=== PATIENT | female | born 1965 | race Caucasian/White ===

== ENCOUNTER 2021-03-26 16:27 | Inpatient (IN) | payer BC ==
[2021-03-26] MEDS ORDERED: HYDROmorphone 0.5 MG/0.5 ML SYRINGE IVP STA ×2 (19:14→21:20)
[2021-03-26] MEDS ORDERED: SODIUM CHLORIDE 0.9% 1,000 ML IV STA ×2 (19:14→19:56)
--- NOTE | 2021-03-26 19:43 | ED ---
General Adult HPI - General Chief complaint: Recheck/Abnormal Lab/Rx Stated complaint: MERARY Time Seen by Provider: 03/26/21 16:45 Source: patient, family, RN notes reviewed, old records reviewed Mode of arrival: wheelchair Limitations: no limitations - History of Present Illness Initial comments: This a 55-year-old female who presents emergency department stating that since Father's Day she has been feeling extremely weak she is seen her physician roseline lovee times and had multiple studies but the weakness over the last 2 weeks is excessive. Patient has also noticed some increased breast fullness on the right but no redness and no soreness. Patient states most of her pain is in the right upper quadrant of her abdomen. Patient states she had an ultrasound recently she's scheduled for a CAT scan. Patient denies any fever chills. Patient denies nausea vomiting diarrhea. Patient denies any anterior chest pain but she does state on the right lateral aspect of her chest there is some pain. Patient states she has shortness of breath over the last few days as well. Patient denies swelling to her legs or calf tenderness. - Related Data Allergies Allergy/AdvReac Type Severity Reaction Status Date / Time No Known Allergies Allergy Verified 03/26/21 16:50 Review of Systems ROS Statement: Those systems with pertinent positive or pertinent negative responses have been documented in the HPI. ROS Other: All systems not noted in ROS Statement are negative. Past Medical History Past Medical History: No Reported History History of Any Multi-Drug Resistant Organisms: None Reported Past Surgical History: Tubal Ligation Past Psychological History: No Psychological Hx Reported Smoking Status: Current every day smoker Past Alcohol Use History: Occasional Past Drug Use History: None Reported General Exam - General Exam Comments Initial Comments: GENERAL: Patient is well-developed and well-nourished. Patient is nontoxic and well- hydrated and is in mild distress. ENT: Neck is soft and supple. No significant lymphadenopathy is noted. Oropharynx is clear. Moist mucous membranes. Neck has full range of motion without eliciting any pain. There is no thyroid enlargement and no masses were felt. EYES: The sclera were anicteric and conjunctiva were pink and moist. Extraocular movements were intact and pupils were equal round and reactive to light. Eyelids were unremarkable. PULMONARY: Unlabored respirations. Good breath sounds bilaterally. No audible rales rhonchi or wheezing was noted. CARDIOVASCULAR: There is a regular rate and rhythm without any murmurs gallops or rubs. Right breast does appear a little more full bilaterally but there are no areas of tenderness or solitary masses. ABDOMEN: Patient is right upper quadrant tenderness and fullness. SKIN: Skin is clear with no lesions or rashes and otherwise unremarkable. NEUROLOGIC: Patient is alert and oriented x3. Cranial nerves II through XII are grossly intact. Motor and sensory are also intact. Normal speech, volume and content. Symmetrical smile. MUSCULOSKELETAL: Normal extremities with adequate strength and full range of motion. No lower extremity swelling or edema. No calf tenderness. LYMPHATICS: No significant lymphadenopathy is noted PSYCHIATRIC: Normal psychiatric evaluation. Limitations: no limitations Course Vital Signs 03/26/21 03/26/21 16:47 19:53 Temperature 98.4 F Pulse Rate 125 H 129 H Respiratory 18 16 Rate Blood Pressure 135/80 96/75 O2 Sat by Pulse 97 90 L Oximetry Medical Decision Making - Medical Decision Making EKG shows sinus tachycardia 133 bpm MD interval 118 QRS is 80 QT interval 02 QTC is 449. Patient's EKG shows some inverted T waves in leads [address] of the abdomen and pelvis shows a very large liver with a very heterogeneous pattern in the kidney on the right also has somewhat of a heterogeneous pattern. Chest x-ray shows either fluid in the fissure or an infiltrate. Patient has a white count of 22,000/started the patient antibiotics. I spoke with Dr. Carey agreed to admit the patient admitted the patient I consulted oncology as well as pulmonary. - Lab Data Result diagrams: 03/26/21 19:20 03/26/21 19:21 Lab Results 03/26/21 03/26/21 03/26/21 Range/Units 19:20 19:20 19:20 WBC 22.1 H (3.8-10.6) k/uL RBC 4.92 (3.80-5.40) m/uL Hgb 15.8 (11.4-16.0) gm/dL Hct 48.2 H (34.0-46.0) % MCV 98.0 (80.0-100.0) fL MCH 32.1 (25.0-35.0) pg MCHC 32.8 (31.0-37.0) g/dL RDW 14.6 (11.5-15.5) % Plt Count 203 (150-450) k/uL MPV 8.2 Neutrophils % 90 % Lymphocytes % 6 % Monocytes % 3 % Eosinophils % 0 % Basophils % 0 % Neutrophils # 20.0 H (1.3-7.7) k/uL Lymphocytes # 1.3 (1.0-4.8) k/uL Monocytes # 0.6 (0-1.0) k/uL Eosinophils # 0.1 (0-0.7) k/uL Basophils # 0.1 (0-0.2) k/uL PT 12.8 H (9.0-12.0) sec INR 1.2 H (<1.2) APTT 23.5 (22.0-30.0) sec Sodium (137-145) mmol/L Potassium (3.5-5.1) mmol/L Chloride (98-107) mmol/L Carbon Dioxide (22-30) mmol/L Anion Gap mmol/L BUN (7-17) mg/dL Creatinine (0.52-1.04) mg/dL Est GFR (CKD-EPI)AfAm (>60 ml/min/1.73 sqM) Est GFR (CKD-EPI)NonAf (>60 ml/min/1.73 sqM) Glucose (74-99) mg/dL Plasma Lactic Acid Laz 1.5 (0.7-2.0) mmol/L Calcium (8.4-10.2) mg/dL Total Bilirubin (0.2-1.3) mg/dL AST (14-36) U/L ALT (4-34) U/L Alkaline Phosphatase (38-126) U/L Troponin I (0.000-0.034) ng/mL Total Protein (6.3-8.2) g/dL Albumin (3.5-5.0) g/dL Amylase (30-110) U/L Lipase (23-300) U/L Urine Color Urine Appearance (Clear) Urine pH (5.0-8.0) Ur Specific [place] (1.001-1.035) Urine Protein (Negative) Urine Glucose (UA) (Negative) Urine Ketones (Negative) Urine Blood (Negative) Urine Nitrite (Negative) Urine Bilirubin (Negative) Urine Urobilinogen (<2.0) mg/dL Ur Leukocyte Esterase (Negative) Urine RBC (0-5) /hpf Urine WBC (0-5) /hpf Ur Squamous Epith Cells (0-4) /hpf Urine Bacteria (None) /hpf Hyaline Casts (0-2) /lpf Urine Mucus (None) /hpf 03/26/21 03/26/21 03/26/21 Range/Units 19:20 19:21 20:06 WBC (3.8-10.6) k/uL RBC (3.80-5.40) m/uL Hgb (11.4-16.0) gm/dL Hct (34.0-46.0) % MCV (80.0-100.0) fL MCH (25.0-35.0) pg MCHC (31.0-37.0) g/dL RDW (11.5-15.5) % Plt Count (150-450) k/uL MPV Neutrophils % % Lymphocytes % % Monocytes % % Eosinophils % % Basophils % % Neutrophils # (1.3-7.7) k/uL Lymphocytes # (1.0-4.8) k/uL Monocytes # (0-1.0) k/uL Eosinophils # (0-0.7) k/uL Basophils # (0-0.2) k/uL PT (9.0-12.0) sec INR (<1.2) APTT (22.0-30.0) sec Sodium 134 L (137-145) mmol/L Potassium 3.6 (3.5-5.1) mmol/L Chloride 98 (98-107) mmol/L Carbon Dioxide 26 (22-30) mmol/L Anion Gap 10 mmol/L BUN 38 H (7-17) mg/dL Creatinine 0.80 (0.52-1.04) mg/dL Est GFR (CKD-EPI)AfAm >90 (>60 ml/min/1.73 sqM) Est GFR (CKD-EPI)NonAf 83 (>60 ml/min/1.73 sqM) Glucose 122 H (74-99) mg/dL Plasma Lactic Acid Laz (0.7-2.0) mmol/L Calcium 9.2 (8.4-10.2) mg/dL Total Bilirubin 4.8 H (0.2-1.3) mg/dL AST 237 H (14-36) U/L ALT 149 H (4-34) U/L Alkaline Phosphatase 542 H (38-126) U/L Troponin I 0.012 (0.000-0.034) ng/mL Total Protein 6.5 (6.3-8.2) g/dL Albumin 3.9 (3.5-5.0) g/dL Amylase 49 (30-110) U/L Lipase 151 (23-300) U/L Urine Color Dark Brown Urine Appearance Cloudy H (Clear) Urine pH 6.0 (5.0-8.0) Ur Specific [place] 1.049 H (1.001-1.035) Urine Protein 1+ H (Negative) Urine Glucose (UA) Negative (Negative) Urine Ketones 1+ H (Negative) Urine Blood Negative (Negative) Urine Nitrite Negative (Negative) Urine Bilirubin 2+ H (Negative) Urine Urobilinogen 12.0 (<2.0) mg/dL Ur Leukocyte Esterase Small H (Negative) Urine RBC 6 H (0-5) /hpf Urine WBC 5 (0-5) /hpf Ur Squamous Epith Cells 8 H (0-4) /hpf Urine Bacteria Rare H (None) /hpf Hyaline Casts 11 H (0-2) /lpf Urine Mucus Many H (None) /hpf Disposition Clinical Impression: Pneumonia, Hepatomegaly, Elevated liver function tests, Dehydration Disposition: ADMITTED IP TO THIS [facility] Referrals: Shayla Tadeo DO [Primary Care Provider] - 1-2 days Time of Disposition: 20:59
[2021-03-26 19:44] LABS: Basophils # (A) 0.1 k/uL (0-0.2); Basophils % (A) 0 %; Eosinophils # (A) 0.1 k/uL (0-0.7); Eosinophils % (A) 0 %; HCT 48.2 % (34.0-46.0); HGB 15.8 gm/dL (11.4-16.0); Lymphocytes # (A) 1.3 k/uL (1.0-4.8); Lymphocytes % (A) 6 %; MCH 32.1 pg (25.0-35.0); MCHC 32.8 g/dL (31.0-37.0); Mean Platelet Volume 8.2; Monocytes # (A) 0.6 k/uL (0-1.0); Monocytes % (A) 3 %; Neutrophils % (A) 90 %; Platelet Count 203 k/uL (150-450); RBC 4.92 m/uL (3.80-5.40); RDW 14.6 % (11.5-15.5); WBC 22.1 k/uL (3.8-10.6)
[2021-03-26 19:45] LABS: ALT 149 U/L (4-34); AST 237 U/L (14-36); African American GFR (CKD) >90 (>60 ml/min/1.73 sqM); Albumin 3.9 g/dL (3.5-5.0); Alkaline Phosphatase 542 U/L (38-126); Amylase 49 U/L (30-110); Anion Gap 10 mmol/L; Blood Urea Nitrogen 38 mg/dL (7-17); Calcium 9.2 mg/dL (8.4-10.2); Carbon Dioxide 26 mmol/L (22-30); Chloride 98 mmol/L (98-107); Glucose 122 mg/dL (74-99); Lipase 151 U/L (23-300); Non-African American GFR(CKD) 83 (>60 ml/min/1.73 sqM); Potassium 3.6 mmol/L (3.5-5.1); Sodium 134 mmol/L (137-145); Total Bilirubin 4.8 mg/dL (0.2-1.3); Total Protein 6.5 g/dL (6.3-8.2)
[2021-03-26] MEDS ORDERED: PIPERACILLIN-TAZOBACTAM 3.375 GM in SODIUM CHLORIDE 0.9% 100 ML IVPB STA (19:55)
--- NOTE | 2021-03-26 20:12 | XR ---
EXAMINATION TYPE: XR chest 2V DATE OF EXAM: 03/26/2021 COMPARISON: NONE HISTORY: Weakness and shortness of breath. Fatigue. History of tobacco use TECHNIQUE: Frontal and lateral views of the chest are obtained. FINDINGS: Slight underlying scoliotic curvature. Cardiac silhouette size is within normal limits. The re are small bilateral pleural effusions. There is mild bilateral interstitial prominence. There is s lightly more prominent finding centrally in both lungs. There is more dense consolidation right mid l cammy may be localized to fissures on lateral view. Prominent liver shadow noted. Underlying emphysemat ous changes suspected. IMPRESSION: Small bilateral pleural effusions. At least mild but suspected moderate interstitial ed fidel. Fluid overload state suspected. Correlate for underlying cirrhosis. Cannot exclude underlying in filtrates and/or mass in the mid lungs particularly right aspect. Clinical correlation advised.
[2021-03-26 20:18] LABS: INR 1.2 (<1.2); Partial Thromboplastin Time 23.5 sec (22.0-30.0); Prothrombin Time 12.8 sec (9.0-12.0)
[2021-03-26 20:34] LABS: Appearance,Urine Cloudy (Clear); Bacteria,Urine Rare /hpf; Bilirubin,Urine 2+ (Negative); Blood,Urine Negative (Negative); Color,Urine Dark Brown; Glucose,Urine (UA) Negative (Negative); Hyaline Casts,Urine 11 /lpf (0-2); Ketones,Urine 1+ (Negative); Leukocyte Esterase,Urine Small (Negative); Mucus,Urine Many /hpf; Nitrite,Urine Negative (Negative); Protein,Urine 1+ (Negative); RBC,Urine 6 /hpf (0-5); Squamous Epithelial Cell,Urine 8 /hpf (0-4); WBC,Urine 5 /hpf (0-5)
--- NOTE | 2021-03-26 20:37 | CT ---
EXAMINATION TYPE: CT abdomen pelvis w con DATE OF EXAM: 03/26/2021 COMPARISON: Same day chest radiograph HISTORY: limb swelling and abd pain CT DLP: 1135.6 mGycm Automated exposure control for dose reduction was used. TECHNIQUE: Helical acquisition of images was performed from the lung bases through the pelvis. CONTRAST: Performed without Oral Contrast and with IV Contrast, patient injected with 100 mL of Isovu e 300. FINDINGS: LUNG BASES: There are bilateral small-moderate pleural effusions, greater on the right. LIVER/GB: There is marked 01hepatomegaly with diffusely scalloped liver margins and with a markedly h eterogeneous CT attenuation pattern on both the portal venous phase of contrast enhancement and delay ed urogram phase of contrast enhancement. In this setting, it is not possible to exclude focal liver lesions. Further characterization with MRI can be useful in this setting, as indicated on a clinical basis. PANCREAS: No significant abnormality is seen. SPLEEN: No significant abnormality is seen. ADRENALS: No significant abnormality is seen. KIDNEYS: There is a subtle findings suggesting a striated nephrogram on the delayed equilibrium CT se quence. This is a nonspecific finding but can correlate with a clinical diagnosis of pyelonephritis. PERITONEAL CAVITY: There is a moderate volume of simple-appearing peritoneal fluid within the pelvis. Only scant volume of abdominal peritoneal fluid. No pneumoperitoneum. RETROPERITONEAL ADENOPATHY: None visualized REPRODUCTIVE ORGANS: No significant abnormality is seen URINARY BLADDER: No significant abnormality is seen. PELVIC ADENOPATHY: None visualized. OSSEOUS STRUCTURES: No significant abnormality is seen. BOWEL: No significant abnormality is seen. VASCULATURE: The suprarenal IVC is flattened, suggesting hypovolemia. No other candidate for acute va scular findings. IMPRESSION: 1. MARKED HEPATOMEGALY WITH DIFFUSE HETEROGENEOUS HEPATIC PARENCHYMA. 2. MODERATE PELVIC PERITONEAL FLUID WITH SMALL-MODERATE BILATERAL PLEURAL EFFUSIONS. 3. SUBTLE HETEROGENEOUS RENAL PARENCHYMAL CT ATTENUATION ON THE DELAYED EQUILIBRIUM PHASE OF IV CONT RAST ENHANCEMENT, A NONSPECIFIC FINDING BUT ONE WHICH CAN CORRELATE WITH A CLINICAL DIAGNOSIS OF PYEL ONEPHRITIS.
[2021-03-26 20:48] LABS: Specific Gravity,Urine 1.049 (1.001-1.035)
[2021-03-26] MEDS ORDERED: SODIUM CHLORIDE 0.9% 1,000 ML IV ONE (21:26)
[2021-03-26] MEDS ORDERED: AZITHROMYCIN 500 MG in SODIUM CHLORIDE 0.9% 250 ML IVPB STA (21:30)
[2021-03-26] MEDS ORDERED: PNEUMONIA PROTOCOL UTILIZED 1 EACH MISC PO PRN (21:30)
[2021-03-27] MEDS: PIPERACILLIN-TAZOBACTAM 3.375 GM in SODIUM CHLORIDE 0.9% 100 ML IVPB SCH ×3 (05:20→23:23)
--- NOTE | 2021-03-27 08:38 | XR ---
EXAMINATION TYPE: XR chest 2V DATE OF EXAM: 03/27/2021 COMPARISON: 03/26/2021 HISTORY: 55-year-old female with pneumonia TECHNIQUE: AP and lateral views FINDINGS: Heart normal size. Aorta and pulmonary vasculature within normal limits. Patchy airspace opacity thro ughout the left lung is slightly increased. Focal airspace disease right midlung persists. Trace effu sions on the lateral view. IMPRESSION: Bilateral airspace disease, right greater than left. Slight interval worsening on the left. Trace eff usions on the lateral view are similar.
[2021-03-27] MEDS ORDERED: LORazepam 2 MG/ML INJ IV STA (12:01)
[2021-03-27 12:37] LABS: Basophils # (A) 0.1 k/uL (0-0.2); Basophils % (A) 0 %; Eosinophils # (A) 0.1 k/uL (0-0.7); Eosinophils % (A) 1 %; HCT 44.8 % (34.0-46.0); HGB 14.9 gm/dL (11.4-16.0); Lymphocytes % (A) 5 %; MCH 32.2 pg (25.0-35.0); MCHC 33.2 g/dL (31.0-37.0); MCV 96.9 fL (80.0-100.0); Mean Platelet Volume 8.4; Monocytes # (A) 0.6 k/uL (0-1.0); Monocytes % (A) 3 %; Neutrophils # (A) 17.3 k/uL (1.3-7.7); Neutrophils % (A) 90 %; Platelet Count 196 k/uL (150-450); RBC 4.63 m/uL (3.80-5.40); RDW 14.2 % (11.5-15.5); WBC 19.2 k/uL (3.8-10.6)
[2021-03-27 12:38] LABS: ALT 166 U/L (4-34); AST 276 U/L (14-36); African American GFR (CKD) 86 (>60 ml/min/1.73 sqM); Albumin 3.6 g/dL (3.5-5.0); Albumin/Globulin Ratio 1.4; Alkaline Phosphatase 587 U/L (38-126); Anion Gap 10 mmol/L; Blood Urea Nitrogen 40 mg/dL (7-17); Carbon Dioxide 26 mmol/L (22-30); Chloride 99 mmol/L (98-107); Globulin 2.6 g/dL; Glucose 129 mg/dL (74-99); Non-African American GFR(CKD) 75 (>60 ml/min/1.73 sqM); Potassium 3.5 mmol/L (3.5-5.1); Sodium 135 mmol/L (137-145); Total Bilirubin 5.4 mg/dL (0.2-1.3); Total Protein 6.2 g/dL (6.3-8.2)
[2021-03-27 12:43] LABS: INR 1.3 (<1.2); Partial Thromboplastin Time 23.4 sec (22.0-30.0); Prothrombin Time 13.2 sec (9.0-12.0)
[2021-03-27] MEDS: HYDROmorphone 0.5 MG/0.5 ML SYRINGE IVP PRN ×2 (14:00→20:46)
[2021-03-27] MEDS ORDERED: RX INFO: IV CONTRAST WAS GIVEN 1 EACH MISC MISCELLANE PRN (15:07)
--- NOTE | 2021-03-27 15:18 | P.CNPUL ---
History of Present Illness Consult date: 03/27/21 Reason for consult: pneumonia History of present illness: 55 yo female patient has been experiencing progressive fatigue for the past 2 months. She was having symptoms of generalized weakness, fatigue, body swelling, breast swelling the right more than left, abdominal fullness patient right upper quadrant area and exhaustion. No cough. No sputum production. No hemoptysis. No pleurisy. No angina. No melanotic stools. No abdominal swel ling. No leg swelling. No other gastrointestinal symptoms such as nausea vomiting diarrhea or abdominal pain. She was also found to be hypoxic and she was placed on oxygen at 2 L per minute nasal cannula. Chest x-ray showed bilateral pulmonary infiltrates and repeat chest x-ray from today showed interval worsening of the right the pulmonary infiltration. The patient has airspace disease right more than left. There was also trace bilateral pleural effusions. On her blood work, the patient's had a white cell count of 22 with a hemoglobin of 15.8, platelets of 203, normal coagulation profile, normal electrolytes, BUN of 38 with a creatinine of 0.8. Nevertheless, LFTs were abnormal with a AST of 237, AST of 149 and alkaline phosphatase of 542. For that reason, the patient had a CAT scan of the abdomen and pelvis that showed massive hepatomegaly an there was diffuse heterogeneous hepatic parenchyma and moderate pelvic peritoneal fluid with small amount about the pleural effusion. Amylase and lipase were within normal limits. Note that this patient has not done any previous cancer screening. No previous history of colonoscopy or EGDs. 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 No mammograms. On examination, her right breast was also slightly more swollen compared to the left. No erythema. No breast masses or lesions. She is a smoker and she's been smoking for the past 45 years. She also consumes alcohol in moderation. She drinks 6 beers around 2-3 times a week. Review of Systems Constitutional: Reports fatigue, Reports lethargy, Reports poor appetite, Reports weakness Eyes: denies as per HPI, denies blurred vision, denies bulging eye, denies decreased vision, denies diplopia, denies discharge, denies dry eye, denies irritation, denies itching, denies pain, denies photophobia, denies loss of peripheral vision, denies loss of vision, denies tunnel vision/blind spots Ears: deny: decreased hearing, ear discharge, earache, tinnitus Ears, nose, mouth and throat: Reports as per HPI Breasts: right: change in shape, swelling, absent: as per HPI, gynecomastia, masses, nipple discharge, pain, skin changes Respiratory: Reports as per HPI Gastrointestinal: Reports as per HPI Genitourinary: Reports as per HPI (Right upper quadrant fullness) Menstruation: Reports as per HPI Musculoskeletal: absent: ankle pain, ankle stiffness, ankle swelling Integumentary: Reports as per HPI Neurological: Reports as per HPI Psychiatric: Reports as per HPI Past Medical History Past Medical History: No Reported History History of Any Multi-Drug Resistant Organisms: None Reported Past Surgical History: Tubal Ligation Past Psychological History: No Psychological Hx Reported Smoking Status: Current every day smoker Past Alcohol Use History: Heavy Additional Past Alcohol Use History / Comment(s): Pt reports taking 10 drinks a week, but not drinking every day. Past Drug Use History: None Reported - Past Family History Father Family Medical History: No Reported History Additional Family Medical History / Comment(s): passed from old age. Mother Family Medical History: Hypertension Medications and Allergies Home Medications Medication Instructions Recorded Confirmed Type Acetaminophen Tab [Tylenol] 1,000 mg PO Q4-6H PRN 03/26/21 03/26/21 History Allergies Allergy/AdvReac Type Severity Reaction Status Date / Time No Known Allergies Allergy Verified 03/26/21 21:15 Physical Exam Vitals: Vital Signs Temp Pulse Pulse Resp BP BP Pulse Ox 03/27/21 11:03 97.6 F 122 H 22 140/82 91 L 03/27/21 10:21 98.0 F 118 H 18 134/48 95 03/27/21 07:13 114 H 18 113/73 93 L 03/27/21 06:40 100 03/27/21 06:10 97.4 F L 119 H 18 125/82 92 L 03/27/21 01:36 97.3 F L 110 H 18 113/72 94 L 03/26/21 21:06 97.4 F L 109 H 16 129/78 88 L 03/26/21 19:53 129 H 16 96/75 90 L 03/26/21 16:47 98.4 F 125 H 18 135/80 97 Intake and Output 03/27/21 03/27/21 03/27/21 06:59 14:59 22:59 Other: Weight 81.193 kg Gen. appearance, comfortable likely distress currently on 2 L of Oxymizer by nasal cannula Head exam was generally normal. There was no scleral icterus or corneal arcus. Mucous membranes were moist. Neck was supple and with jugular venous distension, thyromegaly, or carotid bruits. Carotids were easily palpable bilaterally. There was no adenopathy. Lungs sounds are diminished otherwise clear. No rhonchi or any wheezes. Cardiac exam revealed the PMI to be normally situated and sized. The rhythm was regular and no extrasystoles were noted during several minutes of auscultation. The first and second heart sounds were normal and physiologic splitting of the second heart sound was noted. There were no murmurs, rubs, clicks, or gallops. Abdomen examination shows a massive hepatomegaly of the patient's liver edge is seen way below the costal margin. No ascites. No direct tenderness rebound tenderness or guarding. Positive bowel sounds. Extremities reveal trace edema in the upper extremities bilaterally, no edema lower extremities. No cyanosis or clubbing. Neurologically, the patient is awake and alert and the patient does not have any focal neurological deficit. Cranial nerves are essentially intact. Examination of the skin revealed no evidence of significant rashes, suspicious appearing nevi or other concerning lesions. Results - Laboratory Findings CBC and BMP: 03/27/21 12:03 03/27/21 12:03 PT/INR, D-dimer PT 13.2 sec (9.0-12.0) H 03/27/21 12:03 INR 1.3 (<1.2) H 03/27/21 12:03 Abnormal lab findings: Abnormal Labs 03/26/21 03/26/21 03/26/21 19:20 19:20 19:21 WBC 22.1 H Hct 48.2 H Neutrophils # 20.0 H PT 12.8 H INR 1.2 H Sodium 134 L BUN 38 H Glucose 122 H Total Bilirubin 4.8 H AST 237 H ALT 149 H Alkaline Phosphatase 542 H Total Protein Urine Appearance Ur Specific Home Urine Protein Urine Ketones Urine Bilirubin Ur Leukocyte Esterase Urine RBC Ur Squamous Epith Cells Urine Bacteria Hyaline Casts Urine Mucus 03/26/21 03/27/21 03/27/21 20:06 12:03 12:03 WBC 19.2 H Hct Neutrophils # 17.3 H PT 13.2 H INR 1.3 H Sodium BUN Glucose Total Bilirubin AST ALT Alkaline Phosphatase Total Protein Urine Appearance Cloudy H Ur Specific Home 1.049 H Urine Protein 1+ H Urine Ketones 1+ H Urine Bilirubin 2+ H Ur Leukocyte Esterase Small H Urine RBC 6 H Ur Squamous Epith Cells 8 H Urine Bacteria Rare H Hyaline Casts 11 H Urine Mucus Many H 03/27/21 12:03 WBC Hct Neutrophils # PT INR Sodium 135 L BUN 40 H Glucose 129 H Total Bilirubin 5.4 H AST 276 H ALT 166 H Alkaline Phosphatase 587 H Total Protein 6.2 L Urine Appearance Ur Specific Home Urine Protein Urine Ketones Urine Bilirubin Ur Leukocyte Esterase Urine RBC Ur Squamous Epith Cells Urine Bacteria Hyaline Casts Urine Mucus - Diagnostic Findings Chest x-ray: image reviewed Assessment and Plan Plan: 1 Acute hypoxic respiratory failure with bilateral pulmonary infiltrates with consolidation of the right and some perihilar infiltrate on the left. The patient's symptoms are not acute. The patient has been feeling exhausted and fatigued since 2 months. No clear indication for bacterial pneumonia. Consider underlying malignancy especially with the other abnormalities identified on examination including hepatomegaly and abnormal LFTs. This is any further investigated. The patient is a chronic smoker. Malignancy is a consideration. We'll proceed with a CAT scan of the chest 2 massive hepatomegaly with abnormal LFTs with an obstructive pattern and elevation of the alkaline phosphatase, consider underlying malignancy. Consider alcoholic liver disease. 3 bilateral pleural effusions 4 ascites and supplement interstitial edema 5 history of alcohol consumption in moderation according to her although the patient seems to be taken around 6 beers every 2-3 days or 3 times a week 6 smoker 7 extremely exhaustion and fatigue 8 leukocytosis 9 jaundice with [id number] with an abnormal LFTs with elevated AST and AST and obstructive hepatic pattern. Plan CAT scan of the chest with contrast MRI of the liver Check ammonia levels Check hepatitis profile Check alpha-fetoprotein levels Check pro calcitonin level Continue antibiotic coverage We'll follow
[2021-03-27 16:01] LABS: Hepatitis A Antibody IgM Non-Reactive (Non-Reactive); Hepatitis B Core IgM Non-Reactive (Non-Reactive); Hepatitis B Surface Antigen Non-Reactive (Non-Reactive); Hepatitis C IgG Antibody Non-Reactive (Non-Reactive)
--- NOTE | 2021-03-27 16:40 | CT ---
EXAMINATION TYPE: CT chest w con DATE OF EXAM: 03/27/2021 COMPARISON: Radiograph same day HISTORY: 55-year-old female Shortness of breath. Swelling to extremities. TECHNIQUE: Contiguous axial scanning of the chest after the administration of 100 mL of Isovue 300. Coronal/sagittal reconstructions performed. CT DLP: 321.6mGycm. Automatic exposure control utilized for a dose reduction. FINDINGS: The heart is normal in size with trace pericardial fluid. Aorta normal caliber with bovine configuration to the aortic arch and additional direct takeoff of th e left vertebral artery directly from the aortic arch. Marked generalized anasarca change. Small bilateral pleural effusions redemonstrated. Bilateral groundglass changes though relatively sparing the subpleural regions. Scattered septal line s. Background mild to moderate centrilobular emphysema. Conglomerate lymph node mass extending along the right paratracheal region, precarinal region, subcar inal, right hilar regions measuring up to 10.6 cm craniocaudal by 8.2 cm wide by 8.0 cm AP. There is encasement of hilar structures and secondary narrowing of the right main pulmonary artery. P ossible cut off of the right upper lobe branch. Partial encasement of the SVC and right mainstem bron chus. A band of opacity extends along the right midlung and could represent postobstructive pneumonia, atel ectasis, or additional tumor. There are areas of focal masslike opacity in the posterior right upper lobe, axial image 23 that pedro ures up to 6.4 cm, image 25. Abnormal 1.9 cm AP window lymph node. Redemonstrated diffuse heterogeneous appearance to the liver, possible severe burden of underlying me tastatic disease. Bones: No osseous destructive process. IMPRESSION: 1. Conglomerate mary anne mass/neoplasm involving the right paratracheal, precarinal, subcarinal, and rig ht hilar regions measuring up to 10.6 cm. There is encasement of hilar structures and secondary narro wing of the right main pulmonary artery with possible cutoff of the right upper lobe arterial branch. Partial encasement of SVC and right mainstem bronchus. Small cell lung cancer is in the differential . 2. Multiple areas of focal masslike opacity in the posterior right upper lobe measuring up to 6.4 cm, suspect additional tumor. 1.9 cm suspicious AP window lymph node. 3. A band of opacity extends along the right midlung from the hilum and could represent postobstructi ve pneumonia, atelectasis, or additional tumor. PET/CT may be helpful to further clarify. 4. Diffuse heterogeneity and enlargement of the liver. Suspect underlying severe burden of metastatic disease to the liver. 5. Anasarca change. Bilateral groundglass, and small bilateral pleural effusions. Consider CHF/fluid overload state with developing pulmonary edema. COVID pneumonia and NSIP are other considerations. 6. COPD with mild to moderate emphysema.
[2021-03-27] MEDS: AZITHROMYCIN 500 MG in SODIUM CHLORIDE 0.9% 250 ML IVPB SCH (20:46)
[2021-03-27] MEDS: SENNOSIDES 8.6 MG TAB PO SCH (21:02)
--- NOTE | 2021-03-27 21:29 | P.CONS ---
History of Present Illness - Reason for Consult Consult date: 03/27/21 Hepatic Lesion, increase LFTS Requesting physician: Ivet Almeida - Chief Complaint weakness - History of Present Illness Sharon is a 55 yo female who has never underwent recommended health screening or annual physicals. She states around fathers day they were moving her son to out of state when she noticed she was feeling nauseated and just "not right". She thought it was from the heat, moving and exertion. She admitted to increased shortness of breath dizziness. She noted that her right side has been feeling heavy. She has bilateral upper extremity swelling, Right supraclavicular ans right breast swelling, as well as palpable hepatomegaly on exam. She denies weight gain or loss, night sweats. On arrival to the emergency department she was found to be hypoxic requiring oxygen (2L) Chest x-ray showed bilateral pulmonary infiltrates and repeat chest x-ray from today showed interval worsening of the right the pulmonary infiltration. Leukocytosis noted 22 on her CBC, Alk Phos increased 542, Elevated liver function as well AST = 149, ALT - 237 CT scan of the abdomen and pelvis that confirmed hepatomegaly. diffuse heterogeneous hepatic parenchyma and moderate pelvic peritoneal fluid was also noted. She is an everyday tobacco smoker 1-2 packs a day, she does drink 3-5 days a week approximately 6 beers at a time Review of Systems All systems: negative Constitutional: Reports as per HPI Past Medical History Past Medical History: No Reported History History of Any Multi-Drug Resistant Organisms: None Reported Past Surgical History: Tubal Ligation Past Psychological History: No Psychological Hx Reported Smoking Status: Current every day smoker Past Alcohol Use History: Occasional Past Drug Use History: None Reported - Past Family History Father Family Medical History: No Reported History Additional Family Medical History / Comment(s): passed from old age. Mother Family Medical History: Hypertension Medications and Allergies Home Medications Medication Instructions Recorded Confirmed Type Acetaminophen Tab [Tylenol] 1,000 mg PO Q4-6H PRN 03/26/21 03/26/21 History Allergies Allergy/AdvReac Type Severity Reaction Status Date / Time No Known Allergies Allergy Verified 03/26/21 21:15 Physical Exam Vitals: Vital Signs Temp Pulse Resp BP Pulse Ox 03/27/21 10:21 98.0 F 118 H 18 134/48 95 03/27/21 07:13 114 H 18 113/73 93 L 03/27/21 06:40 100 03/27/21 06:10 97.4 F L 119 H 18 125/82 92 L 03/27/21 01:36 97.3 F L 110 H 18 113/72 94 L 03/26/21 21:06 97.4 F L 109 H 16 129/78 88 L 03/26/21 19:53 129 H 16 96/75 90 L 03/26/21 16:47 98.4 F 125 H 18 135/80 97 Intake and Output 03/26/21 03/27/21 03/27/21 22:59 06:59 14:59 Other: Weight 81.193 kg - Constitutional General appearance: cooperative, no acute distress - EENT Eyes: EOMI, PERRLA ENT: normal oropharynx - Neck Increased edema over bilateral arms, Right Breast (no palpable breast masses) Neck: lymphadenopathy - Respiratory Respiratory: bilateral: diminished (throughout) - Cardiovascular Heart rate: 122 Rhythm: regularly irregular leg Peripheral Edema: right: 1+, left: Trace - Gastrointestinal General gastrointestinal: hepatomegaly - Integumentary Integumentary: pale - Neurologic Neurologic: CNII-XII intact - Musculoskeletal Musculoskeletal: generalized weakness, right sided weakness - Psychiatric Psychiatric: A&O x's 3, appropriate affect, intact judgment & insight Results CBC & Chem 7: 03/27/21 12:03 03/27/21 12:03 Labs: Abnormal Lab Results - Last 24 Hours (Table) 03/26/21 03/26/21 03/26/21 Range/Units 19:20 19:20 19:21 WBC 22.1 H (3.8-10.6) k/uL Hct 48.2 H (34.0-46.0) % Neutrophils # 20.0 H (1.3-7.7) k/uL PT 12.8 H (9.0-12.0) sec INR 1.2 H (<1.2) Sodium 134 L (137-145) mmol/L BUN 38 H (7-17) mg/dL Glucose 122 H (74-99) mg/dL Total Bilirubin 4.8 H (0.2-1.3) mg/dL AST 237 H (14-36) U/L ALT 149 H (4-34) U/L Alkaline Phosphatase 542 H (38-126) U/L Urine Appearance (Clear) Ur Specific [place] (1.001-1.035) Urine Protein (Negative) Urine Ketones (Negative) Urine Bilirubin (Negative) Ur Leukocyte Esterase (Negative) Urine RBC (0-5) /hpf Ur Squamous Epith Cells (0-4) /hpf Urine Bacteria (None) /hpf Hyaline Casts (0-2) /lpf Urine Mucus (None) /hpf 03/26/21 Range/Units 20:06 WBC (3.8-10.6) k/uL Hct (34.0-46.0) % Neutrophils # (1.3-7.7) k/uL PT (9.0-12.0) sec INR (<1.2) Sodium (137-145) mmol/L BUN (7-17) mg/dL Glucose (74-99) mg/dL Total Bilirubin (0.2-1.3) mg/dL AST (14-36) U/L ALT (4-34) U/L Alkaline Phosphatase (38-126) U/L Urine Appearance Cloudy H (Clear) Ur Specific [place] 1.049 H (1.001-1.035) Urine Protein 1+ H (Negative) Urine Ketones 1+ H (Negative) Urine Bilirubin 2+ H (Negative) Ur Leukocyte Esterase Small H (Negative) Urine RBC 6 H (0-5) /hpf Ur Squamous Epith Cells 8 H (0-4) /hpf Urine Bacteria Rare H (None) /hpf Hyaline Casts 11 H (0-2) /lpf Urine Mucus Many H (None) /hpf CT scan - abdomen: report reviewed CT scan - chest: report reviewed CT scan - pelvis: report reviewed Assessment and Plan (1) Lung mass Current Visit: Yes Status: Acute Code(s): R91.8 - OTHER NONSPECIFIC ABNORMAL FINDING OF LUNG FIELD SNOMED Code(s): 243443256 (2) SVC (superior vena cava obstruction) Current Visit: Yes Status: Acute Code(s): I87.1 - COMPRESSION OF VEIN SNOMED Code(s): 342690292 (3) Elevated liver function tests Current Visit: Yes Status: Acute Code(s): R79.89 - OTHER SPECIFIED ABNORMAL FINDINGS OF BLOOD CHEMISTRY SNOMED Code(s): 249841613 (4) Hepatomegaly Current Visit: Yes Status: Acute Code(s): R16.0 - HEPATOMEGALY, NOT ELSEWHERE CLASSIFIED SNOMED Code(s): 98880300 (5) Edema of both upper extremities Current Visit: Yes Status: Acute Code(s): R60.0 - LOCALIZED EDEMA SNOMED Code(s): 476909622 (6) Edema of breast Current Visit: Yes Status: Acute Code(s): N64.89 - OTHER SPECIFIED DISORDERS OF BREAST SNOMED Code(s): 534228996 Plan: Assessment and Plan: Multiple areas in lung concerning for malignancy - Encasement of the SVC potentially resulting in degree of SVC evidenced with BUE swelling and unilateral right breast edema. Add Dex/PPI - Pulmonary team to likely perform bronchoscopy next week Hepatomegaly: - with concern of metastatic malignancy Bilateral upper extremity swelling: - Perform Doppler Right sided limitations and edema and picture of metastatic malignancy will fur ther evaluate MRI Brain for initial staging The details of the diagnostic work-up thus far was discussed in detail with patient and . All questions answered and plan for next diagnostics discu ssed, they are agreeable to continue. At this time we can discontinue MRI liver as I do not feel we will gain any additional knowledge after CT CHest has been interpreted. Discussed with pulmonary team Physician Attest: I have completed the full history and physical and agree with above dictation. Dictated as a scribe
--- NOTE | 2021-03-27 21:55 | P.HPIM ---
History of Present Illness H&P Date: 03/27/21 Chief Complaint: fatigue Sharon Power is a 55 yo F with PMH of tobacco abuse who presented to the ED complaining of a 2 month history of progressive weakness, malaise and shortness of breath. She states she has noticed overall poor energy levels as well as swelling, abdominal fullness and breast fullness. She feels in the past week her breathing worsened which prompted her to come in. She denies fever, cough, chest pain or diaphoresis. On presentation she was tachycardic and hypoxic, WBC 22k, AST/ALT 240, 150, alk phos 500. CXR on presentation with bilateral infiltrates and effusions. CT abd/pelvis with hepatomegly and diffuse densities. She has never had a colonoscopy or mammogram and has a 45 pack year smoking history. Review of Systems All systems: negative Constitutional: Reports fatigue, Reports malaise, Reports weakness, Denies chills, Denies fever Eyes: denies blurred vision, denies pain Ears, nose, mouth and throat: Denies headache, Denies sore throat Cardiovascular: Denies chest pain, Denies shortness of breath Respiratory: Reports dyspnea, Denies cough Gastrointestinal: Denies abdominal pain, Denies diarrhea, Denies nausea, Denies vomiting Genitourinary: Denies dysuria, Denies hematuria Musculoskeletal: Denies myalgias Integumentary: Denies pruritus, Denies rash Neurological: Denies numbness, Denies weakness Psychiatric: Denies anxiety, Denies depression Endocrine: Denies fatigue, Denies weight change Past Medical History Past Medical History: No Reported History History of Any Multi-Drug Resistant Organisms: None Reported Past Surgical History: Tubal Ligation Past Psychological History: No Psychological Hx Reported Smoking Status: Current every day smoker Past Alcohol Use History: Occasional Past Drug Use History: None Reported - Past Family History Father Family Medical History: No Reported History Additional Family Medical History / Comment(s): passed from old age. Mother Family Medical History: Hypertension Medications and Allergies Home Medications Medication Instructions Recorded Confirmed Type Acetaminophen Tab [Tylenol] 1,000 mg PO Q4-6H PRN 03/26/21 03/26/21 History Allergies Allergy/AdvReac Type Severity Reaction Status Date / Time No Known Allergies Allergy Verified 03/26/21 21:15 Physical Exam Vitals: Vital Signs Temp Pulse Pulse Resp BP BP Pulse Ox 03/27/21 14:00 97.4 F L 123 H 20 143/82 90 L 03/27/21 11:03 97.6 F 122 H 22 140/82 91 L 03/27/21 10:21 98.0 F 118 H 18 134/48 95 03/27/21 07:13 114 H 18 113/73 93 L 03/27/21 06:40 100 03/27/21 06:10 97.4 F L 119 H 18 125/82 92 L 03/27/21 01:36 97.3 F L 110 H 18 113/72 94 L Intake and Output 03/27/21 03/27/21 03/27/21 06:59 14:59 22:59 Other: # Voids 2 Weight 81.193 kg General: well nourished, well developed, NAD. Vitals reviewed Eyes: PERRL, EOMI, conjunctiva normal HENT: normocephalic, mucus membranes moist Neck: supple, no JVD Lungs: normal respiratory effort, no wheezes or rales CV: Regular rate and rhythm, no murmur. Peripheral pulses 2+ Abdomen: soft, nondistended, no organomegaly Lymph: no cervical or axillary LAD Skin: warm and dry. Neuro: A&Ox3, normal mood and affect Results CBC & Chem 7: 03/27/21 12:03 03/27/21 12:03 Labs: Abnormal Lab Results - Last 24 Hours (Table) 03/27/21 03/27/21 03/27/21 Range/Units 12:03 12:03 12:03 WBC 19.2 H (3.8-10.6) k/uL Neutrophils # 17.3 H (1.3-7.7) k/uL PT 13.2 H (9.0-12.0) sec INR 1.3 H (<1.2) Sodium 135 L (137-145) mmol/L BUN 40 H (7-17) mg/dL Glucose 129 H (74-99) mg/dL Total Bilirubin 5.4 H (0.2-1.3) mg/dL AST 276 H (14-36) U/L ALT 166 H (4-34) U/L Alkaline Phosphatase 587 H (38-126) U/L Ammonia (<30) umol/L Total Protein 6.2 L (6.3-8.2) g/dL 03/27/21 Range/Units 17:35 WBC (3.8-10.6) k/uL Neutrophils # (1.3-7.7) k/uL PT (9.0-12.0) sec INR (<1.2) Sodium (137-145) mmol/L BUN (7-17) mg/dL Glucose (74-99) mg/dL Total Bilirubin (0.2-1.3) mg/dL AST (14-36) U/L ALT (4-34) U/L Alkaline Phosphatase (38-126) U/L Ammonia 48 H (<30) umol/L Total Protein (6.3-8.2) g/dL Thrombosis Risk Factor Assmnt - Choose All That Apply Any of the Below Risk Factors Present?: Yes Each Factor Represents 1 point: Age 41-60 years, Swollen legs (current) Thrombosis Risk Factor Assessment Total Risk Factor Score: 2 Thrombosis Risk Factor Assessment Level: Low Risk Assessment and Plan Plan: 1. Acute hypoxic respiratory failure secondary to bilateral pneumonia. Question possibility of underlying metastatic disease. Admit and consult Pulmonary and Oncology. Cover with IV abx. Check procalcitonin 2. Elevated LFTs, hepatomegaly. Continue to trend labs 3. Hyponatremia
[2021-03-27] MEDS: DEXAMETHASONE SOD PHOSPHATE 4 MG/ML 1 ML VIAL IV SCH (23:35)
[2021-03-28] MEDS: PIPERACILLIN-TAZOBACTAM 3.375 GM in SODIUM CHLORIDE 0.9% 100 ML IVPB SCH ×2 (04:39→12:20)
[2021-03-28] MEDS: PANTOPRAZOLE 40 MG TABLET PO SCH ×2 (07:20→17:50)
[2021-03-28] MEDS: DEXAMETHASONE SOD PHOSPHATE 4 MG/ML 1 ML VIAL IV SCH ×2 (07:21→17:50)
[2021-03-28] MEDS: LACTULOSE 20 GM/30 ML CUP PO SCH ×2 (09:19→22:06)
[2021-03-28] MEDS: SENNOSIDES 8.6 MG TAB PO SCH ×2 (09:19→21:44)
--- NOTE | 2021-03-28 09:25 | MR ---
EXAMINATION TYPE: MR brain wo/w con DATE OF EXAM: 03/28/2021 COMPARISON: None HISTORY: Malignancy presentation, right sided limitation. TECHNIQUE: Multiplanar, multisequence images of the brain and brainstem is performed without and with IV contras t, utilizing 7 mL intravenous Gadavist . FINDINGS: Diffusion weighted images demonstrate no evidence of a recent infarct or other diffusion ab normality. There is no extra-axial fluid collection or significant white matter signal abnormality. The ventricular system and cisternal spaces are normal in size and appearance. The brain volume is age appropriate. There is minimal burden of periventricular and subcortical T2/FLAIR signal hyperinte nsity likely on the basis of chronic ischemic microangiopathic changes. Midline structures demonstrate normal morphology. The craniocervical junction appears within normal limits. Post contrast images do not demonstrate any pathologic enhancement. The dural venous sinuses appear patent. The visualized sinuses are clear and the globes are intact. IMPRESSION: Mild senescent changes without any pathological intracranial enhancement.
--- NOTE | 2021-03-28 10:08 | US ---
EXAMINATION TYPE: US venous doppler duplex UE DATE OF EXAM: 03/28/2021 COMPARISON: NONE CLINICAL HISTORY: bilateral upper extremity edema. Bilateral arm edema, greater on the left. IV left arm SIDE PERFORMED: bilateral *technical limitations due to large amount of soft tissue edema Right Arm: no evidence of DVT as visualized Left Arm: no evidence of DVT as visualized IMPRESSION: Grayscale, color doppler, spectral doppler imaging performed of the deep veins of the upper extremiti es. There is normal flow, compressibility and vascular waveforms.
--- NOTE | 2021-03-28 11:07 | P.PN ---
Subjective Progress Note Date: 03/28/21 On today's evaluation of a 2020, the patient has no new complaints. As part of further investigation, CAT scan of the chest was done and the patient was found to have a conglomeration of lymph nodes/mass extending from the right paratracheal region into the precarinal region and subcarinal region the hilar region measuring 10.6 x 8.2 x 8 cm in size. The lymph nodes are encasing the hilar structures are narrowing the right main pulmonary artery and possibly causing some carotid the right upper lobe branch. There is also encasement of the superior vena cava and right mainstem bronchus. The patient also has some diffusely heterogeneous enlargement of the liver suspect metastatic disease invo lving the liver. The same time there is anasarca with bilateral groundglass changes in the upper lobes and small better pleural effusions. There is background COPD. Findings are consistent with metastatic carcinoma and the patient will need a bronchoscopy. No hemoptysis. She is quite depressed.Her white cell count is at 19. Normal electrolytes. Abnormal LFTs as mentioned earlier. Pro-calcitonin level is at 3.43. Zosyn. MRI of the brain was negative. Doppler of the lower extremity showed no evidence of any DVTs. Objective - Vital Signs Vital signs: Vital Signs Temp 97.6 F 03/28/21 07:20 Pulse 118 H 03/28/21 07:26 Resp 19 03/28/21 07:20 BP 111/70 03/28/21 07:20 Pulse Ox 90 L 03/28/21 07:20 Intake & Output 03/27/21 03/28/21 03/28/21 18:59 06:59 18:59 Weight 81.193 kg Other: Voiding Method Toilet Toilet # Voids 2 3 1 - Exam Gen. appearance, comfortable likely distress currently on 2 L of Oxymizer by nasal cannula Head exam was generally normal. There was no scleral icterus or corneal arcus. Mucous membranes were moist. Neck was supple and with jugular venous distension, thyromegaly, or carotid bruits. Carotids were easily palpable bilaterally. There was no adenopathy. Lungs sounds are diminished otherwise clear. No rhonchi or any wheezes. Cardiac exam revealed the PMI to be normally situated and sized. The rhythm was regular and no extrasystoles were noted during several minutes of auscultation. The first and second heart sounds were normal and physiologic splitting of the second heart sound was noted. There were no murmurs, rubs, clicks, or gallops. Abdomen examination shows a massive hepatomegaly of the patient's liver edge is seen way below the costal margin. No ascites. No direct tenderness rebound tenderness or guarding. Positive bowel sounds. Extremities reveal trace edema in the upper extremities bilaterally, no edema lower extremities. No cyanosis or clubbing. Neurologically, the patient is awake and alert and the patient does not have any focal neurological deficit. Cranial nerves are essentially intact. Examination of the skin revealed no evidence of significant rashes, suspicious appearing nevi or other concerning lesion - Labs CBC & Chem 7: 03/27/21 12:03 03/27/21 12:03 Labs: Abnormal Lab Results - Last 24 Hours (Table) 03/27/21 03/27/21 03/27/21 Range/Units 12:03 12:03 12:03 WBC 19.2 H (3.8-10.6) k/uL Neutrophils # 17.3 H (1.3-7.7) k/uL PT 13.2 H (9.0-12.0) sec INR 1.3 H (<1.2) Sodium 135 L (137-145) mmol/L BUN 40 H (7-17) mg/dL Glucose 129 H (74-99) mg/dL Total Bilirubin 5.4 H (0.2-1.3) mg/dL AST 276 H (14-36) U/L ALT 166 H (4-34) U/L Alkaline Phosphatase 587 H (38-126) U/L Ammonia (<30) umol/L Total Protein 6.2 L (6.3-8.2) g/dL Procalcitonin (0.02-0.09) ng/mL 03/27/21 03/27/21 Range/Units 12:03 17:35 WBC (3.8-10.6) k/uL Neutrophils # (1.3-7.7) k/uL PT (9.0-12.0) sec INR (<1.2) Sodium (137-145) mmol/L BUN (7-17) mg/dL Glucose (74-99) mg/dL Total Bilirubin (0.2-1.3) mg/dL AST (14-36) U/L ALT (4-34) U/L Alkaline Phosphatase (38-126) U/L Ammonia 48 H (<30) umol/L Total Protein (6.3-8.2) g/dL Procalcitonin 3.43 H (0.02-0.09) ng/mL Assessment and Plan Plan: 1 metastatic carcinoma most likely of a lung primary. The patient has chronic elevation of mediastinal lymph node/mass causing mass effect and encasing of the hilar structures in addition to possibility of an early SVC syndrome. The patient also has heterogeneous liver with hepatomegaly and abnormal LFTs consistent with hepatic metastases. Patient also has some bilateral upper lobe groundglass infiltrates with an elevated pro-calcitonin level. Consider underlying infection. 2 massive hepatomegaly with abnormal LFTs with an obstructive pattern and elevation of the alkaline phosphatase, consider underlying malignancy. Consider alcoholic liver disease. 3 bilateral pleural effusions 4 ascites and supplement interstitial edema 5 history of alcohol consumption in moderation according to her although the patient seems to be taken around 6 beers every 2-3 days or 3 times a week 6 smoker 7 extremely exhaustion and fatigue 8 leukocytosis 9 jaundice with an abnormal LFTs with elevated AST and AST and obstructive hepatic pattern. Plan Keep oxygen at 2 L per minute nasal cannula We'll schedule patient for a bronchoscopy on Tuesday for tissue diagnosis. The patient will need a transbronchial needle aspirate of the mediastinal mass Continue antibiotic coverage Check COVID-19 status with a PCR she has bilateral groundglass pulmonary infiltrates which obviously raises the concern for underlying COVID-19 related infection that can even complicates her status. We'll follow, prognosis poor, oncology is on the case.
--- NOTE | 2021-03-28 15:43 | ECHOF ---
Referral Reason:pleural effusion MEASUREMENTS -------- HEIGHT: 167.6 cm WEIGHT: 81.2 kg BP: IVSd: 0.7 cm (0.6 - 1.1) LVIDd: 3.5 cm (3.9 - 5.3) LVPWd: 1.0 cm (0.6 - 1.1) EDV(Teich): 51 ml IVSs: 1.5 cm LVIDs: 1.9 cm LVPWs: 1.7 cm %IVS Thck: 121 % ESV(Teich): 11 ml EF(Teich): 78 % %FS: 45 % SV(Teich): 40 ml RVIDd: 3.0 cm (< 3.3) Ao Diam: 2.8 cm (2.0 - 3.7) LA Diam: 2.4 cm (2.7 - 3.8) AV Cusp: 1.6 cm (1.5 - 2.6) EPSS: 0.7 cm MV E Garcia: 0.53 m/s MV DecT: 184 ms MV Dec [place]: 2.9 m/s MV A Garcia: 0.82 m/s MV E/A Ratio: 0.64 MV PHT: 53 ms MR Vmax: 1.25 m/s MR maxP.28 mmHg AV Vmax: 1.05 m/s AV maxP.39 mmHg TR Vmax: 2.50 m/s TR maxP.07 mmHg RAP: 5.00 mmHg RVSP: 30.07 mmHg MV EF SLOPE: 98.80 mm/s (70 - 150) MV EXCURSION: 12.97 mm (> 18.000) FINDINGS -------- This was a technically difficult study with suboptimal views. The left ventricular size is normal. Left ventricular wall thickness is normal. Overall left vent ricular systolic function is normal with, an EF between 55 - 60 %. The right ventricle is normal in size. The left atrial size is normal. The right atrial size is normal. 5.0mg of Lumason was utilized for enhancement of images The aortic valve was not well visualized. The mitral valve was not well visualized. There is trace mitral regurgitation. The tricuspid valve appears structurally normal. Trace tricuspid regurgitation present. Right alis tricular systolic pressure is normal at < 35 mmHg. The pulmonic valve was not well visualized. The aortic root size is normal. IVC Not well visulized. There is no pericardial effusion. CONCLUSIONS -------- 1. The left ventricular size is normal. 2. Left ventricular wall thickness is normal. 3. Overall left ventricular systolic function is normal with, an EF between 55 - 60 %. 4. There is trace mitral regurgitation. 5. Trace tricuspid regurgitation present. 6. There is no pericardial effusion. FORENSIC EXAMINER: Gerri Villafuerte RDCS
[2021-03-28] MEDS: AZITHROMYCIN 500 MG in SODIUM CHLORIDE 0.9% 250 ML IVPB SCH (21:43)
[2021-03-28] MEDS: METOPROLOL TARTRATE 12.5 MG TAB PO SCH (21:44)
[2021-03-28 22:41] LABS: African American GFR (CKD) 95.5 (60.0-200.0); Albumin 3.8 g/dL (3.80-4.90); Albumin/Globulin Ratio 1.73 (1.60-3.17); Anion Gap 16.3 mmol/L (4.00-12.00); BUN/Creat Ratio 52.5 Ratio (12.00-20.00); Calcium 8.9 mg/dL (8.7-10.3); Carbon Dioxide 21.7 mmol/L (21.6-31.8); Globulin 2.2 g/dL (1.6-3.3); Non-African American GFR(CKD) 82.4 (60.0-200.0); Potassium 3.7 mmol/L (3.5-5.5); Total Bilirubin 4.8 mg/dL (0.3-1.2)
[2021-03-29] MEDS: PIPERACILLIN-TAZOBACTAM 3.375 GM in SODIUM CHLORIDE 0.9% 100 ML IVPB SCH ×3 (00:44→17:49)
[2021-03-29] MEDS: DEXAMETHASONE SOD PHOSPHATE 4 MG/ML 1 ML VIAL IV SCH ×3 (00:44→17:49)
--- NOTE | 2021-03-29 01:31 | P.PN ---
Subjective Progress Note Date: 03/28/21 Principal diagnosis: Lung mass Ms. Pwoer is a 55-year-old female with a past medical history of smoking and alcohol abuse coming to the hospital with a chief complaint of extreme weakness. She had chest x-ray done showing bilateral pulmonary infiltrates and eventually had a CAT scan of the abdomen and showing massive hepatomegaly, moderate pelvic peritoneal fluid and small amount of pleural effusion. The chest CT showed conglomerate mary anne mass/neoplasm involving the right paratracheal precarinal subcarinal and right hilar regions measuring up to 10.6 cm. There is secondary narrowing of the right main pulmonary artery and partial encasement of SVC and right mainstem bronchus, small cell lung cancer to be considered in the differential. On 03/28/2021 -patient is seen and examined at bedside. She was complaining of extreme weakness and tiredness. She states that difficulty in breathing is at baseline no worsening symptoms, she has mild cough nonproductive. She denies having any chest pain or palpitations. No abdominal pain nausea vomiting or diarrhea. This afternoon when she was in the bathroom, she felt very weak and was trying to fall, when her helped her slowly get to the floor. Patient denied having any loss of consciousness, mentions that she felt extremely weak. On reviewing her vitals from this morning temperature of 97.4 heart rate 100s to 120s, respiratory rate 18, blood pressure 116/72, saturating at 90% on 2 L of nasal cannula reviewing the labs from this morning white count of 19.2, hemoglobin 14.9, platelets 196. Sodium 139, potassium 3.7, chloride 101, bicarb 21, BUN 42, creatinine 0.8. Coronavirus PCR negative. Objective - Vital Signs Vital signs: Vital Signs Temp 97.6 F 03/28/21 07:20 Pulse 118 H 03/28/21 07:26 Resp 19 03/28/21 07:20 BP 111/70 03/28/21 07:20 Pulse Ox 95 03/28/21 12:38 Intake & Output 03/27/21 03/28/21 03/28/21 18:59 06:59 18:59 Weight 81.193 kg Other: Voiding Method Toilet Toilet # Voids 2 3 1 - Exam GEN. APPEARANCE:Fatigued and lying in bed HE ENT: No pallor. + for icterus. RESPIRATORY EXAM: Right sided BS diminishes, No wheezing. CARDIOVASCULAR EXAM: S1-S2 heard. No additional sounds. GI/ABDOMINAL EXAM: Distended with massive hepatomegaly EXTREMITIES EXAM: + edema of bilateral upper extremities NEUROLOGICAL EXAM: alert, oriented X 3, no focal deficits. PSYCHIATRIC EXAM: appears worried SKIN EXAM: No rash. - Labs CBC & Chem 7: 03/27/21 12:03 03/28/21 07:33 Labs: Abnormal Lab Results - Last 24 Hours (Table) 03/27/21 03/27/21 Range/Units 12:03 17:35 Ammonia 48 H (<30) umol/L Procalcitonin 3.43 H (0.02-0.09) ng/mL Assessment and Plan Assessment: ASSESSMENT Right-sided lung mass with significant mediastinal lymphadenopathy Possible SVC syndrome due to encasement of SVC and right mainstem bronchus by the lung mass Massive hepatomegaly Hyperbilirubinemia and transaminitis could be due to underlying malignancy Alcohol dependence Nicotine dependence Mild protein calorie malnutrition Elevated BUN Leukocytosis Tachycardia Plan: Patient is being evaluated for right-sided lung mass, small cell cancer on the differential, will need tissue biopsy for confirmation, tentatively scheduled for bronchoscopy on Tuesday. Pulmonary on board and following the tavo ent closely. She is currently on antibiotics in the form of azithromycin and Zosyn which will be continued. As the patient has tachycardia we will give a trial of 12.5 mg Lopressor twice daily. Patient had bilateral upper extremity Doppler that was negative for DVT. She had an MRI of the brain this morning with pending results echocardiogram done yesterday showing ejection fraction of 55 to 60%. Overall prognosis is poor. Pulmonary, oncology on board and closely following the patient. Further recommendations to follow depending on the progress of the patient.
[2021-03-29] MEDS: PANTOPRAZOLE 40 MG TABLET PO SCH ×2 (08:22→17:49)
[2021-03-29] MEDS: METOPROLOL TARTRATE 12.5 MG TAB PO SCH ×2 (08:22→22:09)
[2021-03-29] MEDS: LACTULOSE 20 GM/30 ML CUP PO SCH ×2 (08:23→22:10)
[2021-03-29] MEDS: SENNOSIDES 8.6 MG TAB PO SCH ×2 (08:23→22:10)
[2021-03-29 10:41] LABS: Basophils # (A) 0.05 X 10*3/uL (0.00-0.10); Basophils % (A) 0.3 %; Eosinophils # (A) 0.08 X 10*3/uL (0.04-0.35); Eosinophils % (A) 0.4 %; HCT 41.8 % (37.2-46.3); HGB 13.3 g/dL (12.0-15.0); Lymphocytes # (A) 1.06 X 10*3/uL (0.90-5.00); Lymphocytes % (A) 5.6 %; MCH 30.8 pg (27.0-32.0); MCHC 31.8 g/dL (32.0-37.0); MCV 96.8 fL (80.0-97.0); Mean Platelet Volume 10.8 fL (9.5-12.2); Monocytes # (A) 0.64 X 10*3/uL (0.20-1.00); Monocytes % (A) 3.4 %; Neutrophils # (A) 16.79 X 10*3/uL (1.80-7.70); Neutrophils % (A) 87.9 %; Platelet Count 176 X 10*3/uL (140-440); RBC 4.32 X 10*6/uL (4.10-5.20); RDW 14.9 % (11.5-14.5); WBC 19.08 X 10*3/uL (4.50-10.00)
[2021-03-29] MEDS ORDERED: FUROSEMIDE 10 MG/ML 4 ML VIAL IV STA (11:45)
--- NOTE | 2021-03-29 11:45 | P.PN ---
Subjective Progress Note Date: 03/29/21 On today's evaluation of a 2020, the patient is being seen in follow-up. The plan is to proceed with bronchoscopy and transbronchial needle aspirate of the mediastinal mass on this patient. No new complaints. She continues to have some swelling on 4 extremities. She had a fall yesterday while trying to go to the bathroom. This was witnessed by the . No trauma. No injuries. She felt weak and dizzy.CAT scan of the chest was done and the patient was found to have a conglomeration of lymph nodes/mass extending from the right paratracheal region into the precarinal region and subcarinal region the hilar region measuring 10.6 x 8.2 x 8 cm in size. The lymph nodes are encasing the hilar structures are narrowing the right main pulmonary artery and possibly causing some carotid the right upper lobe branch. There is also encasement of the superior vena cava and right mainstem bronchus. The patient also has some diffusely heterogeneous enlargement of the liver suspect metastatic disease involving the liver. The same time there is anasarca with bilateral groundglass changes in the upper lobes and small better pleural effusions. There is background COPD. Findings are consistent with metastatic carcinoma and the patient will need a bronchoscopy Objective - Vital Signs Vital signs: Vital Signs Temp 97.4 F L 03/29/21 07:33 Pulse 117 H 03/29/21 07:33 Resp 17 03/29/21 07:33 BP 121/78 03/29/21 07:33 Pulse Ox 93 L 03/29/21 08:04 Intake & Output 03/28/21 03/29/21 03/29/21 18:59 06:59 18:59 Other: Voiding Method Toilet Toilet Bedside Commode # Voids 2 3 # Bowel Movements 7 - Exam Gen. appearance, comfortable likely distress currently on 2 L of Oxymizer by nasal cannula Head exam was generally normal. There was no scleral icterus or corneal arcus. Mucous membranes were moist. Neck was supple and with jugular venous distension, thyromegaly, or carotid bruits. Carotids were easily palpable bilaterally. There was no adenopathy. Lungs sounds are diminished otherwise clear. No rhonchi or any wheezes. Cardiac exam revealed the PMI to be normally situated and sized. The rhythm was regular and no extrasystoles were noted during several minutes of auscultation. The first and second heart sounds were normal and physiologic splitting of the second heart sound was noted. There were no murmurs, rubs, clicks, or gallops. Abdomen examination shows a massive hepatomegaly of the patient's liver edge is seen way below the costal margin. No ascites. No direct tenderness rebound tenderness or guarding. Positive bowel sounds. Extremities reveal trace edema in the upper extremities bilaterally, no edema lower extremities. No cyanosis or clubbing. Neurologically, the patient is awake and alert and the patient does not have any focal neurological deficit. Cranial nerves are essentially intact. Examination of the skin revealed no evidence of significant rashes, suspicious appearing nevi or other concerning lesion - Labs CBC & Chem 7: 03/29/21 05:47 03/28/21 07:33 Labs: Abnormal Lab Results - Last 24 Hours (Table) 03/28/21 03/29/21 Range/Units 07:33 05:47 WBC 19.08 H (4.50-10.00) X 10*3/uL MCHC 31.8 L (32.0-37.0) g/dL RDW 14.9 H (11.5-14.5) % Absolute Nucleated RBC 0.02 H (0.00-0.00) X 10*3/uL Immature Gran # 0.46 H (0.00-0.04) X 10*3/uL Neutrophils # 16.79 H (1.80-7.70) X 10*3/uL NRBC/100 WBC Diff 0.1 H (0.0-0.0) /100 WBCS Anion Gap 16.30 H (4.00-12.00) mmol/L BUN 42.0 H (9.0-27.0) mg/dL BUN/Creatinine Ratio 52.50 H (12.00-20.00) Ratio Glucose 160 H (70-110) mg/dL Total Bilirubin 4.8 H (0.3-1.2) mg/dL AST 222 H (13-35) U/L ALT 202 H (8-44) U/L Alkaline Phosphatase 635 H (41-126) U/L Total Protein 6.0 L (6.2-8.2) g/dL Assessment and Plan Plan: 1 metastatic carcinoma most likely of a lung primary. The patient has chronic elevation of mediastinal lymph node/mass causing mass effect and encasing of the hilar structures in addition to possibility of an early SVC syndrome. The patient also has heterogeneous liver with hepatomegaly and abnormal LFTs consistent with hepatic metastases. Patient also has some bilateral upper lobe groundglass infiltrates with an elevated pro-calcitonin level. Consider underlying infection. 2 massive hepatomegaly with abnormal LFTs with an obstructive pattern and elevation of the alkaline phosphatase, consider underlying malignancy. Consider alcoholic liver disease. 3 bilateral pleural effusions 4 ascites and supplement interstitial edema 5 history of alcohol consumption in moderation according to her although the patient seems to be taken around 6 beers every 2-3 days or 3 times a week 6 smoker 7 extremely exhaustion and fatigue 8 leukocytosis 9 jaundice with an abnormal LFTs with elevated AST and AST and obstructive hepatic pattern. Plan Keep oxygen at 2 L per minute nasal cannula We'll give the patient dose of Lasix 40 mg IV push Bronchoscopy for tomorrow COVID-19 testing was negative Oncology follow-up NPO After midnight. We'll follow, prognosis poor, oncology is on the case.
[2021-03-29 12:50] LABS: African American GFR (CKD) 118.1 (60.0-200.0); Albumin 3.7 g/dL (3.80-4.90); Albumin/Globulin Ratio 1.85 (1.60-3.17); Anion Gap 11.6 mmol/L (4.00-12.00); Calcium 8.9 mg/dL (8.7-10.3); Carbon Dioxide 25.4 mmol/L (21.6-31.8); Non-African American GFR(CKD) 101.9 (60.0-200.0); Potassium 3.2 mmol/L (3.5-5.5); Total Bilirubin 4.9 mg/dL (0.3-1.2); Total Protein 5.7 g/dL (6.2-8.2)
--- NOTE | 2021-03-29 13:57 | P.PN ---
Subjective Progress Note Date: 03/29/21 The patient reports some improvement in subjective swelling and tightness in her upper body. She is currently on oxygen. She denies any major change in respiratory status. No fever or chills. No hemoptysis Objective - Vital Signs Vital signs: Vital Signs Temp 97.4 F L 03/29/21 07:33 Pulse 117 H 03/29/21 07:33 Resp 17 03/29/21 07:33 BP 121/78 03/29/21 07:33 Pulse Ox 93 L 03/29/21 08:04 Intake & Output 03/28/21 03/29/21 03/29/21 18:59 06:59 18:59 Other: Voiding Method Toilet Toilet Bedside Commode # Voids 2 3 # Bowel Movements 7 - Constitutional General appearance: Present: no acute distress - EENT Eyes: Present: EOMI ENT: Present: hearing grossly normal, normal oropharynx - Respiratory Respiratory: right: diminished - Cardiovascular Rhythm: regular Heart sounds: normal: S1, S2 - Gastrointestinal General gastrointestinal: Present: distended, hepatomegaly, normal bowel sounds, soft - Integumentary Integumentary: Present: normal - Neurologic Neurologic: Present: CNII-XII intact - Musculoskeletal Musculoskeletal: Present: generalized weakness, strength equal bilaterally - Labs CBC & Chem 7: 03/29/21 05:47 03/29/21 05:47 Labs: Abnormal Lab Results - Last 24 Hours (Table) 03/28/21 03/29/21 03/29/21 Range/Units 07:33 05:47 05:47 WBC 19.08 H (4.50-10.00) X 10*3/uL MCHC 31.8 L (32.0-37.0) g/dL RDW 14.9 H (11.5-14.5) % Absolute Nucleated RBC 0.02 H (0.00-0.00) X 10*3/uL Immature Gran # 0.46 H (0.00-0.04) X 10*3/uL Neutrophils # 16.79 H (1.80-7.70) X 10*3/uL NRBC/100 WBC Diff 0.1 H (0.0-0.0) /100 WBCS Potassium 3.2 L (3.5-5.5) mmol/L Anion Gap 16.30 H (4.00-12.00) mmol/L BUN 42.0 H 33.0 H (9.0-27.0) mg/dL BUN/Creatinine Ratio 52.50 H 55.00 H (12.00-20.00) Ratio Glucose 160 H 111 H (70-110) mg/dL Total Bilirubin 4.8 H 4.9 H (0.3-1.2) mg/dL AST 222 H 229 H (13-35) U/L ALT 202 H 198 H (8-44) U/L Alkaline Phosphatase 635 H 734 H (41-126) U/L Total Protein 6.0 L 5.7 L (6.2-8.2) g/dL Albumin 3.70 L (3.80-4.90) g/dL Assessment and Plan (1) Lung mass Narrative/Plan: This is highly suspicious for aggressive primary lung malignancy given the CT appearance. The patient is to have bronchoscopy with biopsy tomorrow with pulmonary medicine. MRI of the brain did not show any evidence of metastatic disease. Results were discussed with the patient and her family. - They were advised that she will need additional staging, which will most likely be with a PET scan as an outpatient. Final treatment plan will depend on results of staging and pathology. Current Visit: Yes Status: Acute Code(s): R91.8 - OTHER NONSPECIFIC ABNORMAL FINDING OF LUNG FIELD SNOMED Code(s): 575774671 (2) SVC (superior vena cava obstruction) Narrative/Plan: Due to above-mentioned mass. Patient has been started on steroids with some subjective improvement. Physical exam does not show any obvious progression. Continue steroids and switch to by mouth and the next one to 2 days Current Visit: Yes Status: Acute Code(s): I87.1 - COMPRESSION OF VEIN SNOMED Code(s): 456413492 (3) Hepatomegaly Narrative/Plan: The patient does have prior history of heavy alcohol use, and the appearance of the liver could represent chronic liver damage due to the same. However in view of the findings in the lung, the physical exam findings and CTA. Somewhat suspicious for metastatic disease. PET scan planned as an outpatient which was evaluated liver also. Liver enzymes are overall in the same range. Current Visit: Yes Status: Acute Code(s): R16.0 - HEPATOMEGALY, NOT ELSEWHERE CLASSIFIED SNOMED Code(s): 36373451
[2021-03-29] MEDS ORDERED: Potassium Replacement Protocol 1 EACH MISC MISCELLANE PRN (15:00)
[2021-03-29] MEDS: POTASSIUM CHLORIDE ER 20 MEQ TAB.ER PO SCH ×2 (17:49→18:27)
[2021-03-29] MEDS: AZITHROMYCIN 500 MG in SODIUM CHLORIDE 0.9% 250 ML IVPB SCH (22:09)
[2021-03-30] MEDS: DEXAMETHASONE SOD PHOSPHATE 4 MG/ML 1 ML VIAL IV SCH ×3 (00:03→16:53)
[2021-03-30] MEDS: PIPERACILLIN-TAZOBACTAM 3.375 GM in SODIUM CHLORIDE 0.9% 100 ML IVPB SCH ×3 (00:03→16:53)
--- NOTE | 2021-03-30 01:47 | P.PN ---
Subjective Progress Note Date: 03/29/21 Principal diagnosis: Lung mass Ms. Power is a 55-year-old female with a past medical history of smoking and alcohol abuse coming to the hospital with a chief complaint of extreme weakness. She had chest x-ray done showing bilateral pulmonary infiltrates and eventually had a CAT scan of the abdomen and showing massive hepatomegaly, moderate pelvic peritoneal fluid and small amount of pleural effusion. The chest CT showed conglomerate mary anne mass/neoplasm involving the right paratracheal precarinal subcarinal and right hilar regions measuring up to 10.6 cm. There is secondary narrowing of the right main pulmonary artery and partial encasement of SVC and right mainstem bronchus, small cell lung cancer to be considered in the differential. On 03/28/2021 -patient is seen and examined at bedside. She was complaining of extreme weakness and tiredness. She states that difficulty in breathing is at baseline no worsening symptoms, she has mild cough nonproductive. She denies having any chest pain or palpitations. No abdominal pain nausea vomiting or diarrhea. This afternoon when she was in the bathroom, she felt very weak and was trying to fall, when her helped her slowly get to the floor. Patient denied having any loss of consciousness, mentions that she felt extremely weak. On reviewing her vitals from this morning temperature of 97.4 heart rate 100s to 120s, respiratory rate 18, blood pressure 116/72, saturating at 90% on 2 L of nasal cannula reviewing the labs from this morning white count of 19.2, hemoglobin 14.9, platelets 196. Sodium 139, potassium 3.7, chloride 101, bicarb 21, BUN 42, creatinine 0.8. Coronavirus PCR negative. On 03/29/2021 -patient is seen and examined at the bedside. Patient states that she feels some relief in the tightness of her bilateral upper extremities. Patient continues to have difficulty in breathing. She denies having any chest pain or palpitations. On reviewing the vitals temperature 97.4, heart rate 100s to 120s, respiratory rate 17, blood pressure 121/78, saturating at 92% on 4 L of oxygen. Patient's labs are reviewed white count of 19, hemoglobin 13.3, pl atelets 176. Sodium 141, potassium 3.2, chloride 104, bicarb 25, BUN 33, creatinine 0.6. Patient's medications have been reviewed. Active Medications Hydrocodone Bitart/Acetaminophen (Hydrocodone/Apap 5-325mg 1 Each Tab) 1 each PO Q6HR PRN PRN Reason: Pain Dexamethasone Sodium Phosphate (Dexamethasone Sod Phosphate 4 Mg/Ml 1 Ml Vial) 4 mg IV Q8HR [facility] Last Admin: 03/30/21 00:03 Dose: 4 mg Documented by: Azithromycin 500 mg/ Sodium (Chloride) 250 mls @ 250 mls/hr IVPB DAILY@2100 [facility] Stop: 03/30/21 21:59 Last Admin: 03/29/21 22:09 Dose: 250 mls/hr Documented by: Piperacillin Sod/Tazobactam (Sod 3.375 gm/ Sodium Chloride) 100 mls @ 25 mls/hr IVPB Q8H [facility] Last Admin: 03/30/21 00:03 Dose: 25 mls/hr Documented by: Lactulose (Lactulose 20 Gm/30 Ml Cup) 30 gm PO BID [facility] Last Admin: 03/29/21 22:10 Dose: Not Given Documented by: Metoprolol Tartrate (Metoprolol Tartrate 12.5 Mg Tab) 12.5 mg PO BID [facility] Last Admin: 03/29/21 22:09 Dose: 12.5 mg Documented by: Miscellaneous Information (Pneumonia Protocol Utilized 1 Each Misc) 1 each PO ONCE PRN PRN Reason: Per Protocol Miscellaneous Information (Potassium Replacement Protocol 1 Each Misc) 1 each MISCELLANE DAILY PRN; Protocol PRN Reason: Per Protocol Pantoprazole Sodium (Pantoprazole 40 Mg Tablet) 40 mg PO AC-BID [facility] Last Admin: 03/29/21 17:49 Dose: 40 mg Documented by: Senna (Sennosides 8.6 Mg Tab) 8.6 mg PO BID [facility] Last Admin: 03/29/21 22:10 Dose: Not Given Documented by: Objective - Vital Signs Vital signs: Vital Signs Temp 97.4 F L 03/29/21 07:33 Pulse 117 H 03/29/21 07:33 Resp 17 03/29/21 07:33 BP 121/78 03/29/21 07:33 Pulse Ox 93 L 03/29/21 08:04 Intake & Output 03/28/21 03/29/21 03/29/21 18:59 06:59 18:59 Other: Voiding Method Toilet Toilet Bedside Commode # Voids 2 3 # Bowel Movements 7 - Exam PHYSICAL EXAM GEN. APPEARANCE:Fatigued and lying in bed HE ENT: No pallor. + for icterus. RESPIRATORY EXAM: Right sided BS diminishes, No wheezing. CARDIOVASCULAR EXAM: S1-S2 heard. No additional sounds. GI/ABDOMINAL EXAM: Distended with massive hepatomegaly EXTREMITIES EXAM: + edema of bilateral upper extremities NEUROLOGICAL EXAM: alert, oriented X 3, no focal deficits. PSYCHIATRIC EXAM: appears worried SKIN EXAM: No rash. - Labs CBC & Chem 7: 03/29/21 05:47 03/29/21 05:47 Labs: Abnormal Lab Results - Last 24 Hours (Table) 03/28/21 03/29/21 03/29/21 Range/Units 07:33 05:47 05:47 WBC 19.08 H (4.50-10.00) X 10*3/uL MCHC 31.8 L (32.0-37.0) g/dL RDW 14.9 H (11.5-14.5) % Absolute Nucleated RBC 0.02 H (0.00-0.00) X 10*3/uL Immature Gran # 0.46 H (0.00-0.04) X 10*3/uL Neutrophils # 16.79 H (1.80-7.70) X 10*3/uL NRBC/100 WBC Diff 0.1 H (0.0-0.0) /100 WBCS Potassium 3.2 L (3.5-5.5) mmol/L Anion Gap 16.30 H (4.00-12.00) mmol/L BUN 42.0 H 33.0 H (9.0-27.0) mg/dL BUN/Creatinine Ratio 52.50 H 55.00 H (12.00-20.00) Ratio Glucose 160 H 111 H (70-110) mg/dL Total Bilirubin 4.8 H 4.9 H (0.3-1.2) mg/dL AST 222 H 229 H (13-35) U/L ALT 202 H 198 H (8-44) U/L Alkaline Phosphatase 635 H 734 H (41-126) U/L Total Protein 6.0 L 5.7 L (6.2-8.2) g/dL Albumin 3.70 L (3.80-4.90) g/dL Assessment and Plan Assessment: ASSESSMENT Right-sided lung mass with significant mediastinal lymphadenopathy Possible SVC syndrome due to encasement of SVC and right mainstem bronchus by the lung mass Massive hepatomegaly Hyperbilirubinemia and transaminitis could be due to underlying malignancy Alcohol dependence Nicotine dependence Mild protein calorie malnutrition Elevated BUN Leukocytosis Tachycardia Plan: Patient is being evaluated for right-sided lung mass, small cell cancer on the differential, will need tissue biopsy for confirmation, tentatively scheduled for bronchoscopy tomorrow AM. Pulmonary on board and following the patient closely. She is currently on antibiotics in the form of azithromycin and Zosyn which will be continued. As the patient has tachycardia we will give a trial of 12.5 mg Lopressor twice daily. Patient had bilateral upper extremity Doppler that was negative for DVT. MRI of the brain did not show any evidence of metastatic disease. Echocardiogram done showing ejection fraction of 55 to 60%. Overall prognosis is poor. Pulmonary, oncology on board and closely following the patient. Further recommendations to follow depending on the progress of the patient.
[2021-03-30] MEDS: SENNOSIDES 8.6 MG TAB PO SCH ×2 (08:21→20:13)
[2021-03-30] MEDS: PANTOPRAZOLE 40 MG TABLET PO SCH ×2 (08:21→16:53)
[2021-03-30] MEDS: LACTULOSE 20 GM/30 ML CUP PO SCH ×2 (08:21→20:12)
[2021-03-30] MEDS: METOPROLOL TARTRATE 12.5 MG TAB PO SCH ×2 (08:21→20:13)
[2021-03-30] MEDS ORDERED: LIDOCAINE 1% INJ 10MG/ML (20 ML MDV) ONE (13:38)
[2021-03-30] MEDS ORDERED: SUCCINYLCHOLINE CHLORIDE 100 MG/5 ML SYR IV ONE (13:38)
[2021-03-30] MEDS ORDERED: PROPOFOL 10 MG/ML 20 ML VIAL IV ONE (13:38)
[2021-03-30] MEDS ORDERED: PHENYLEPHRINE-0.9% NACL SYG 1,000 MCG/10 ML SYRINGE ONE (13:38)
[2021-03-30] MEDS ORDERED: fentaNYL (PF) 50 MCG/ML 2 ML AMP ONE (13:38)
[2021-03-30] MEDS ORDERED: MIDAZOLAM 2 MG/2 ML VIAL ONE (13:38)
[2021-03-30] MEDS ORDERED: ONDANSETRON 4 MG/2 ML VIAL ONE (13:38)
[2021-03-30] MEDS ORDERED: diphenhydrAMINE 50 MG/ML 1 ML VIAL ONE (13:38)
[2021-03-30] MEDS: NYSTATIN 100,000 UNIT/ML SUSP 500,000 UNIT/5 ML CUP PO SCH ×3 (14:15→20:13)
[2021-03-30 14:29] VITALS: BMI 28.8
--- NOTE | 2021-03-30 14:31 | P.PN ---
Subjective Progress Note Date: 03/30/21 Principal diagnosis: Lung mass, hepatomegaly and elevated liver enzymes. In follow-up today patient is sitting up in the chair, she is comfortable at rest, pending bronchoscopy and biopsy. She has no acute complaints. Objective - Vital Signs Vital signs: Vital Signs Temp 97.5 F L 03/30/21 07:47 Pulse 110 H 03/30/21 08:21 Resp 18 03/30/21 08:21 BP 93/58 03/30/21 07:47 Pulse Ox 90 L 03/30/21 07:51 Intake & Output 03/29/21 03/30/21 03/30/21 18:59 06:59 18:59 Other: Voiding Method Bedside Commode Bedside Commode # Voids 4 2 - Constitutional General appearance: Present: average body habitus, cooperative, no acute distr ess - EENT Eyes: Present: EOMI ENT: Present: hearing grossly normal - Respiratory Details: Respirations mildly labored at rest - Neurologic Neurologic: Present: CNII-XII intact - Musculoskeletal Musculoskeletal: Present: generalized weakness - Psychiatric Psychiatric: Present: A&O x's 3, appropriate affect, intact judgment & insight - Labs CBC & Chem 7: 03/29/21 05:47 03/29/21 05:47 - Imaging and Cardiology MRI - head: report reviewed Assessment and Plan (1) Lung mass Narrative/Plan: Pending bronchoscopy and biopsy. MRI of the brain was negative for malignancy. PET scan will be planned for outpatient to complete staging. Patient will follow-up with Medical Oncology. Then final treatment recommendations will be given. Current Visit: Yes Status: Acute Priority: High Code(s): R91.8 - OTHER NONSPECIFIC ABNORMAL FINDING OF LUNG FIELD SNOMED Code(s): 114124320 (2) Elevated liver function tests Current Visit: Yes Status: Acute Priority: High Code(s): R79.89 - OTHER SPECIFIED ABNORMAL FINDINGS OF BLOOD CHEMISTRY SNOMED Code(s): 526688443 (3) Hepatomegaly Narrative/Plan: Secondary to EtOH. Question if there is malignancy in the liver. Staging PET scan planned for outpatient will give us more information. Current Visit: Yes Status: Acute Priority: High Code(s): R16.0 - HEPATOMEGALY, NOT ELSEWHERE CLASSIFIED SNOMED Code(s): 59019759 (4) SVC (superior vena cava obstruction) Narrative/Plan: No DVT in the upper extremities. Patient is on steroids IV, this will be converted to oral in continued in the outpatient setting until patient is only started some kind of treatment. Current Visit: Yes Status: Acute Priority: High Code(s): I87.1 - COMPRESSION OF VEIN SNOMED Code(s): 827460012 Plan: Reviewed the above information with patient and her . Discussed with them the plan. They're in agreement.
[2021-03-30] MEDS ORDERED: IV FLUID CONTINUATION 1,000 ML IV ONE (14:36)
[2021-03-30] MEDS ORDERED: SODIUM CHLORIDE 0.9% 500 ML 500 ML IV ONE (15:56)
--- NOTE | 2021-03-30 16:01 | P.PN ---
Subjective Progress Note Date: 03/30/21 03/30/2021, the patient was seen for a follow-up. She is supposed to undergo a bronchoscopy today for tissue diagnosis. She short of breath even at rest. Her pulse ox in the order of 90% on 4 L of oxygen by nasal cannula. Her heart rate is regular normal sinus ranging between 127 and 130. She is having difficulties in breathing even at rest. Her breathing is somewhat labored. No hemoptysis. No pleurisy. She has developed increased swelling in the approximate is bilaterally. This is a sign of early SVC syndrome. No facial swelling. No neck swelling. No tongue swelling. She is quite depressed. Family is at the bedside. Procedure has been extended to the patient at length.Meanwhile, the patient remains on Zosyn and Zithromax as a broad-spectrum antibiotic coverage. The patient is also on Decadron 4 mg IV every 8 hours. IV fluids are running at 25 mL an hour. No chest pain. No pleurisy. Objective - Vital Signs Vital signs: Vital Signs Temp 97.6 F 03/30/21 14:41 Pulse 130 H 03/30/21 15:41 Resp 24 03/30/21 15:41 BP 152/71 03/30/21 15:41 Pulse Ox 90 L 03/30/21 15:41 Intake & Output 03/29/21 03/30/21 03/30/21 18:59 06:59 18:59 Intake Total 350 Balance 350 Weight 81.193 kg Intake: IV 350 Other: Voiding Method Bedside Commode Bedside Commode # Voids 4 2 - Exam Gen. appearance, comfortable likely distress currently on 4 l by nasal cannula Head exam was generally normal. There was no scleral icterus or corneal arcus. Mucous membranes were moist. Neck was supple and with jugular venous distension, thyromegaly, or carotid bruits. Carotids were easily palpable bilaterally. There was no adenopathy. Lungs sounds are diminished otherwise clear. No rhonchi or any wheezes. Cardiac exam revealed the PMI to be normally situated and sized. The rhythm was regular and no extrasystoles were noted during several minutes of auscultation. The first and second heart sounds were normal and physiologic splitting of the second heart sound was noted. There were no murmurs, rubs, clicks, or gallops. Abdomen examination shows a massive hepatomegaly of the patient's liver edge is seen way below the costal margin. No ascites. No direct tenderness rebound tenderness or guarding. Positive bowel sounds. Extremities reveal trace edema in the upper extremities bilaterally, no edema lower extremities. No cyanosis or clubbing. Neurologically, the patient is awake and alert and the patient does not have any focal neurological deficit. Cranial nerves are essentially intact. Examination of the skin revealed no evidence of significant rashes, suspicious appearing nevi or other concerning lesion - Labs CBC & Chem 7: 03/29/21 05:47 03/29/21 05:47 Assessment and Plan Plan: 1 metastatic carcinoma most likely of a lung primary. The patient has chronic elevation of mediastinal lymph node/mass causing mass effect and encasing of the hilar structures in addition to possibility of an early SVC syndrome. The patient also has heterogeneous liver with hepatomegaly and abnormal LFTs consistent with hepatic metastases. Patient also has some bilateral upper lobe groundglass infiltrates with an elevated pro-calcitonin level. the patient also has bilateral pleural effusions. 2 massive hepatomegaly with abnormal LFTs with an obstructive pattern and elevation of the alkaline phosphatase, consider underlying malignancy. Consider alcoholic liver disease. 3 acute hypoxic respiratory failure, currently on 4 L about 2 by nasal cannula. 4 ascites and supplement interstitial edema 5 history of alcohol consumption in moderation according to her although the patient seems to be taken around 6 beers every 2-3 days or 3 times a week 6 smoker 7 extremely exhaustion and fatigue 8 leukocytosis 9 jaundice with an abnormal LFTs with elevated AST and AST and obstructive hepatic pattern. 10 sinus tachycardia, probably related to her underlying malignancy. Plan Keep oxygen at 2 L per minute nasal cannula We'll give the patient dose of Lasix 40 mg IV push Bronchoscopy for tomorrow continue the antibiotics. Continue Decadron. We'll continue to follow.
--- NOTE | 2021-03-30 16:09 | P.PCN ---
Date of Procedure: 03/30/21 Preoperative Diagnosis: 1 mediastinal mass, Involving the right paratracheal, precarinal and subcarinal area and causing encasement of the hilar structures and the right main pulmonary artery and causing mass effect on the SVC. Postoperative Diagnosis: 1 mediastinal mass, Involving the right paratracheal, precarinal and subcarinal area and causing encasement of the hilar structures and the right main pulmonary artery and causing mass effect on the SVC. Procedure(s) Performed: 1 flexible bronchoscopy 2 airway inspection 3 transbronchial needle aspirate of right upper lobe mucosal irregularity/abnormalities/tumor 4 transbronchial needle aspirate of anterior mediastinal mass using a 19-gauge cytology a 21-gauge histology needle 5 endobronchial biopsies of the right upper lobe anterior segment endobronchial tumor 6 bronchial alveolar lavage of the right upper lobe Anesthesia: YNES Surgeon: Ivet Almeida Master Control Technician #1: Zarina Ohara Estimated Blood Loss (ml): 0 Pathology: other Condition: stable Disposition: floor Description of Procedure: This procedure was done and the endoscopy suite. The patient was intubated and placed on a mechanical ventilator. Orotracheal tube was inserted by [employer]ING [employer]SEM[employer]ER. Note that the patient was quite hypoxic even prior to the procedure. She was on 4 L about 2 by nasal cannula and her pulse ox was around 90%. She was intubated successfully and the procedure was initiated I was able to pass the flexible bronchoscope with orotracheal tube and the flexible bronchoscope was gradually advanced to the lower trachea. Distal trachea was within normal limits. Becca was sharp in the midline. Examination of the left side including left mainstem bronchus, left upper lobe bronchus, left lower lobe bronchus and the various 8 segments of the left lung was noted without any major abnormalities. Bronchoscope was then moved to the right. Right mainstem bronchus was patent. The anterior segment of the right upper lobe was compressed extrinsically and there was some endobronchial extension where endobronchial irregularities was seen occupying one of the segments of the anterior segment of the right upper lobe. There was mass effect and there is some mucosal irregularities and the mucosa itself looked cauliflower appearance with vascularity and this was highly suspicious for malignancy. The bronchoscope was then moved to the bronchus intermedius was patent. The right middle lobe bronchus was extrinsically compressed medially. I was able to visualize the 2 segments of the right middle lobe bronchus including the right middle lobe lateral segment of the medial segment. Examination of the right lower lobe bronchus included the various 5 segments and there were all patent and within normal limits Bronchoscope was then moved to the right upper lobe. Using a 19-gauge 1 needle, transbronchial aspirate of the right upper lobe endobronchial irregularities and abnormalities was performed. Following that, using a 19-gauge cytology and 21- gauge histology the, transbronchial needle aspirate of the anterior mediastinal mass was done. The samples were inspected by pathology the bedside and adequacy of the samples was confirmed. Following that, endobronchial biopsies of the right upper lobe mucosal abnormalities was done and it was essentially involving the anterior segment of the right upper lobe. At the completion of the procedure, bronchial lavage of the right upper lobe anterior segment was done. A total of 80 mL of fluid was infused and around 25-30 mL of fluid was aspirated and aspirate was bloody. Regular suctioning was done. At the completion of the procedure, there was no active bleed. Bronchoscope was removed. The patient was extubated and she was transferred to recovery in stable condition Will need immediate attention and treatment with oncology and would also consult radiation oncology for any possible palliative radiation therapy for this extensive mediastinal mass which is causing some mass effect on the airways and causing early SVC syndrome.
[2021-03-30] MEDS: HYDROcodone/APAP 5-325MG 1 EACH TAB PO PRN (16:59)
--- NOTE | 2021-03-30 17:29 | P.PN ---
Subjective Progress Note Date: 03/30/21 Sharon Power is a 55 yo F with PMH of tobacco abuse who presented to the ED complaining of a 2 month history of progressive weakness, malaise and shortness of breath. She states she has noticed overall poor energy levels as well as swelling, abdominal fullness and breast fullness. She feels in the past week her breathing worsened which prompted her to come in. She denies fever, cough, chest pain or diaphoresis. On presentation she was tachycardic and hypoxic, WBC 22k, AST/ALT 240, 150, alk phos 500. CXR on presentation with bilateral infiltrates and effusions. CT abd/pelvis with hepatomegly and diffuse densities. She has never had a colonoscopy or mammogram and has a 45 pack year smoking history. 03/30/2021 maintained on Zosyn, Zithromax and IV Decadron . NPO, scheduled for a diagnostic bronchoscopy today with tissue biopsy. Maintaining O2 sats in the low 90s on 4 L nasal cannula. Tachycardic heart rates up to the 110s. Objective - Vital Signs Vital signs: Vital Signs Temp 97.6 F 03/30/21 14:41 Pulse 130 H 03/30/21 15:41 Resp 24 03/30/21 15:41 BP 152/71 03/30/21 15:41 Pulse Ox 90 L 03/30/21 15:41 Intake & Output 03/29/21 03/30/21 03/30/21 18:59 06:59 18:59 Intake Total 350 Balance 350 Weight 81.193 kg Intake: IV 350 Other: Voiding Method Bedside Commode Bedside Commode # Voids 4 2 - Exam General: Sitting up in chair, NAD. Vitals reviewed Eyes: PERRL, EOMI, conjunctiva normal HENT: normocephalic, mucus membranes dry, positive thrush Neck: supple, no JVD Lungs: normal respiratory effort, no wheezes or rales CV: Regular rate and rhythm, no murmur. Peripheral pulses 2+ Abdomen: soft, nontender, positive hepatomegaly. Positive bowel sounds Skin: warm and dry. Neuro: A&Ox3, normal mood and affect - Labs CBC & Chem 7: 03/29/21 05:47 03/29/21 05:47 Labs: Abnormal Lab Results - Last 24 Hours (Table) 03/30/21 Range/Units 16:20 Ammonia 38 H (<30) umol/L Assessment and Plan Assessment: Acute hypoxic respiratory failure secondary to right-sided lung mass with significant mediastinal lymphadenopathy, underlying metastatic disease. Possibility of early SVC syndrome related to encasement of SVC and right mainstem bronchus by the lung mass Elevated LFTs, hepatomegaly, suspect hepatic metastasis Sinus tachycardia secondary to #1 Hyponatremia Nicotine dependence Alcohol abuse Leukocytosis Plan: Continue on current medication regime ,monitoring and symptomatic treatment. Diagnostic bronchoscopy this afternoon. Repeat electrolytes ordered/pending. CBC BMP in a.m. follow closely with both pulmonary and oncology. Prognosis guarded given multiple complex medical issues. The impression and plan of care has been dictated as directed. : I performed a history and examination of this patient, discussed the same with the dictator. I agree with the dictator's note ,documented as a scribe. Any additional findings or plans will be noted.
[2021-03-30 17:46] LABS: Magnesium 2.2 mg/dL (1.6-2.3); Potassium 3.5 mmol/L (3.5-5.1)
[2021-03-30] MEDS: AZITHROMYCIN 500 MG in SODIUM CHLORIDE 0.9% 250 ML IVPB SCH (20:14)
[2021-03-31] MEDS: DEXAMETHASONE SOD PHOSPHATE 4 MG/ML 1 ML VIAL IV SCH ×4 (01:46→23:25)
[2021-03-31] MEDS: PIPERACILLIN-TAZOBACTAM 3.375 GM in SODIUM CHLORIDE 0.9% 100 ML IVPB SCH ×4 (01:46→23:26)
[2021-03-31] MEDS: NYSTATIN 100,000 UNIT/ML SUSP 500,000 UNIT/5 ML CUP PO SCH ×4 (08:44→23:25)
[2021-03-31] MEDS: SENNOSIDES 8.6 MG TAB PO SCH ×2 (08:44→23:25)
[2021-03-31] MEDS: METOPROLOL TARTRATE 12.5 MG TAB PO SCH ×2 (08:44→23:25)
[2021-03-31] MEDS: PANTOPRAZOLE 40 MG TABLET PO SCH ×2 (08:45→17:13)
[2021-03-31] MEDS: LACTULOSE 20 GM/30 ML CUP PO SCH ×2 (08:45→23:25)
[2021-03-31] MEDS: HYDROcodone/APAP 5-325MG 1 EACH TAB PO PRN (08:45)
[2021-03-31] MEDS ORDERED: SIMETHICONE 40 MG/0.6 ML DROPS 2,000 MG/30 ML BOTTLE PO PRN (09:05)
[2021-03-31 09:31] LABS: Basophils # (A) 0.11 X 10*3/uL (0.00-0.10); Basophils % (A) 0.6 %; Eosinophils # (A) 0.13 X 10*3/uL (0.04-0.35); Eosinophils % (A) 0.7 %; HCT 39.2 % (37.2-46.3); HGB 12.7 g/dL (12.0-15.0); MCH 31.9 pg (27.0-32.0); MCHC 32.4 g/dL (32.0-37.0); MCV 98.5 fL (80.0-97.0); Mean Platelet Volume 10.6 fL (9.5-12.2); Monocytes # (A) 0.89 X 10*3/uL (0.20-1.00); Monocytes % (A) 4.5 %; Neutrophils # (A) 16.85 X 10*3/uL (1.80-7.70); Neutrophils % (A) 84.1 %; Platelet Count 173 X 10*3/uL (140-440); RBC 3.98 X 10*6/uL (4.10-5.20); RDW 15.5 % (11.5-14.5); WBC 19.99 X 10*3/uL (4.50-10.00)
[2021-03-31 10:13] LABS: African American GFR (CKD) 112.3 (60.0-200.0); Anion Gap 14.1 mmol/L (4.00-12.00); Calcium 8.5 mg/dL (8.7-10.3); Carbon Dioxide 24.9 mmol/L (21.6-31.8); Non-African American GFR(CKD) 96.9 (60.0-200.0); Potassium 3.4 mmol/L (3.5-5.5)
--- NOTE | 2021-03-31 12:55 | P.CONS ---
History of Present Illness - Reason for Consult Consult date: 03/31/21 - Chief Complaint Upper body swelling, shortness of breath, and upper abdomen pain - History of Present Illness 55 years old female admitted to the hospital for progressive fatigue, upper body swelling and abdomen fullness, she denies cough or hemoptysis. It was found in the emergency room she was hypoxic and had high liver enzyme. Chest x-ray revealed suspicious infiltration bilateral greater in the right than the left. 03/27/21 CT of the chest showed mary anne mass involving the right paratracheal measures 10.6 x 8.2 x 8 cm, there is encasement of hilar structures and narrowing of the right main pulmonary artery and possible cut off of the right upper lobe branch, partial encasement of the SVC and right main stem bronchus, there is opacity extends in the right midlung, might represent post obstructive pneumonia, there is diffuse heterogeneity and enlargement of the liver with suspected underlying severe metastatic disease. In 03/31/2021 the patient underwent bronchoscopy with biopsy, preliminary results consisting of carcinoma. MRI of the brain was negative for metastatic disease. At this time the patient still hypoxic as on 2 L oxygen, she denies hemoptysis, she denies pain. She has mild improvement in the swelling of her face. Review of Systems Constitutional: Reports as per HPI Ears, nose, mouth and throat: Reports as per HPI Cardiovascular: Reports as per HPI Respiratory: Reports as per HPI Gastrointestinal: Reports as per HPI Genitourinary: Reports as per HPI Menstruation: Reports as per HPI Musculoskeletal: right: shoulder swelling Integumentary: Reports as per HPI Neurological: Reports as per HPI Psychiatric: Reports as per HPI Endocrine: Reports as per HPI Hematologic/Lymphatic: Reports as per HPI Allergic/Immunologic: Reports as per HPI Past Medical History Past Medical History: No Reported History History of Any Multi-Drug Resistant Organisms: None Reported Past Surgical History: Tubal Ligation Past Psychological History: No Psychological Hx Reported Smoking Status: Current every day smoker Past Alcohol Use History: Occasional Past Drug Use History: None Reported - Past Family History Father Family Medical History: No Reported History Additional Family Medical History / Comment(s): passed from old age. Mother Family Medical History: Hypertension Medications and Allergies Home Medications Medication Instructions Recorded Confirmed Type Acetaminophen Tab [Tylenol] 1,000 mg PO Q4-6H PRN 03/26/21 03/26/21 History Allergies Allergy/AdvReac Type Severity Reaction Status Date / Time No Known Allergies Allergy Verified 03/26/21 21:15 Physical Exam Vitals: Vital Signs Temp Pulse Resp BP Pulse Ox 03/31/21 08:52 112 H 20 03/31/21 08:36 91 L 03/31/21 08:00 97.5 F L 112 H 20 119/75 92 L 03/31/21 02:46 99.8 F H 111 H 17 136/82 93 L 03/30/21 20:00 79 18 03/30/21 19:45 98.4 F 79 18 121/79 92 L 03/30/21 17:25 130 H 126/81 92 L 03/30/21 17:10 125 H 115/76 91 L 03/30/21 16:55 128 H 120/73 92 L 03/30/21 16:40 122 H 110/74 91 L 03/30/21 16:25 122 H 111/75 91 L 03/30/21 16:10 98.1 F 123 H 132/71 90 L 03/30/21 15:41 130 H 24 152/71 90 L 03/30/21 15:26 128 H 24 157/82 90 L 03/30/21 15:11 127 H 24 155/89 91 L 03/30/21 14:56 128 H 28 H 150/76 91 L 03/30/21 14:41 97.6 F 130 H 25 H 109/53 89 L Intake and Output 03/30/21 03/31/21 03/31/21 22:59 06:59 14:59 Intake Total 50 Balance 50 Intake: IV 50 Other: Voiding Method Bedside Commode Bedside Commode # Voids 3 4 # Bowel Movements 2 4 Weight 81.193 kg - Constitutional General appearance: no acute distress - EENT Eyes: EOMI - Neck Neck: no lymphadenopathy - Respiratory Respiratory: right: diminished - Cardiovascular Rhythm: regular - Gastrointestinal General gastrointestinal: distended, hepatomegaly, no organomegaly, soft, no tenderness - Neurologic Neurologic: CNII-XII intact - Musculoskeletal Musculoskeletal: strength equal bilaterally - Psychiatric Psychiatric: A&O x's 3, appropriate affect, intact judgment & insight Results CBC & Chem 7: 03/31/21 05:44 03/31/21 05:44 Labs: Abnormal Lab Results - Last 24 Hours (Table) 03/30/21 03/31/21 03/31/21 Range/Units 16:20 05:44 05:44 WBC 19.99 H (4.50-10.00) X 10*3/uL RBC 3.98 L (4.10-5.20) X 10*6/uL MCV 98.5 H (80.0-97.0) fL RDW 15.5 H (11.5-14.5) % Absolute Nucleated RBC 0.06 H (0.00-0.00) X 10*3/uL Immature Gran # 0.81 H (0.00-0.04) X 10*3/uL Neutrophils # 16.85 H (1.80-7.70) X 10*3/uL Basophils # 0.11 H (0.00-0.10) X 10*3/uL NRBC/100 WBC Diff 0.3 H (0.0-0.0) /100 WBCS Potassium 3.4 L (3.5-5.5) mmol/L Anion Gap 14.10 H (4.00-12.00) mmol/L BUN 35.0 H (9.0-27.0) mg/dL BUN/Creatinine Ratio 50.00 H (12.00-20.00) Ratio Glucose 114 H (70-110) mg/dL Calcium 8.5 L (8.7-10.3) mg/dL Ammonia 38 H (<30) umol/L Assessment and Plan Assessment: Metastatic lung cancer presented with large mary anne mass in the mediastinum en casing right pulmonary artery and SVC, the patient has symptoms of SVC syndrome. Preliminary results of the biopsy consisting of carcinoma. (1) Lung mass Current Visit: Yes Status: Acute Priority: High Code(s): R91.8 - OTHER NONSPECIFIC ABNORMAL FINDING OF LUNG FIELD SNOMED Code(s): 355512394 (2) SVC (superior vena cava obstruction) Current Visit: Yes Status: Acute Priority: High Code(s): I87.1 - COMPRESSION OF VEIN SNOMED Code(s): 444326774 Plan: Images reviewed and discussed with the patient, I had discussed the case with Dr. Seaman as the patient is a stage IV lung cancer she would be a candidate for systemic chemotherapy, however the final results of the biopsy still pending, in the meantime, the patient can get a benefit of palliative external beam radiation therapy to be delivered to the mediastinum and right lung for SVC syndrome. I talked to the patient about the rationale , the technique, and the potential acute and late side effects of the treatment, The patient expressed understanding of these recommendations, and is agreeable to move forward with therapy. We are planning to do simulation and treatment today for palliative intent. Time with Patient: Greater than 30
--- NOTE | 2021-03-31 13:10 | P.PN ---
Subjective Progress Note Date: 03/31/21 Principal diagnosis: Metastatic carcinoma most likely of a lung primary with mediastinal lymphadenopathy, and right hilar mass, SVC syndrome On 03/31/2001 patient seen in follow-up on medical surgical floor. She is up in the chair today, she is weak, but appears to be in no acute distress, she is evidence of oxygen her pulse ox is 91-93%, she had isolated low-grade fevers ov ernight, she slightly tachycardic with a rate of 112 BPM, she denies any acute respiratory distress, lung sounds are diminished, with some limited crackles at the right base. No hemoptysis, no complaints of chest pain. Still awaiting results of the Lung biopsies. Radiation oncology he has been consulted, medical oncology is following. Vital signs have been stable. Preliminary lung biopsy results consisting of carcinoma. Radiation oncology is planning on palliative external beam radiation therapy mediastinum and right lung for SVC syndrome. Objective - Vital Signs Vital signs: Vital Signs Temp 97.5 F L 03/31/21 08:00 Pulse 112 H 03/31/21 08:52 Resp 20 03/31/21 08:52 BP 119/75 03/31/21 08:00 Pulse Ox 91 L 03/31/21 08:36 Intake & Output 03/30/21 03/31/21 03/31/21 18:59 06:59 18:59 Intake Total 350 Balance 350 Weight 81.193 kg Intake: IV 350 Other: Voiding Method Bedside Commode Bedside Commode Bedside Commode # Voids 3 4 # Bowel Movements 2 4 - Exam GENERAL EXAM: Alert, 55-year-old white female on 5 L of oxygen and the pulse ox of 91-93%, comfortable in no apparent distress. HEAD: Normocephalic/atraumatic. EYES: Normal reaction of pupils, equal size. Conjunctiva pink, sclera white. NOSE: Clear with pink turbinates. THROAT: No erythema or exudates. NECK: No masses, no JVD, no thyroid enlargement, no adenopathy. CHEST: No chest wall deformity. Symmetrical expansion. LUNGS: Equal air entry with diminished breath sounds with some limited crackles at the right base CVS: Regular rate and rhythm, normal S1 and S2, no gallops, no murmurs, no rubs ABDOMEN: Soft, nontender. No hepatosplenomegaly, normal bowel sounds, no guarding or rigidity. EXTREMITIES: No clubbing, mild generalized edema, no cyanosis, 2+ pulses and upper and lower extremities. MUSCULOSKELETAL: Muscle strength and tone normal. SPINE: No scoliosis or deformity SKIN: No rashes CENTRAL NERVOUS SYSTEM: Alert and oriented -3. No focal deficits, tone is normal in all 4 extremities. PSYCHIATRIC: Alert and oriented -3. Appropriate affect. Intact judgment and insight. - Labs CBC & Chem 7: 03/31/21 05:44 03/31/21 05:44 Labs: Abnormal Lab Results - Last 24 Hours (Table) 03/30/21 03/31/21 03/31/21 Range/Units 16:20 05:44 05:44 WBC 19.99 H (4.50-10.00) X 10*3/uL RBC 3.98 L (4.10-5.20) X 10*6/uL MCV 98.5 H (80.0-97.0) fL RDW 15.5 H (11.5-14.5) % Absolute Nucleated RBC 0.06 H (0.00-0.00) X 10*3/uL Immature Gran # 0.81 H (0.00-0.04) X 10*3/uL Neutrophils # 16.85 H (1.80-7.70) X 10*3/uL Basophils # 0.11 H (0.00-0.10) X 10*3/uL NRBC/100 WBC Diff 0.3 H (0.0-0.0) /100 WBCS Potassium 3.4 L (3.5-5.5) mmol/L Anion Gap 14.10 H (4.00-12.00) mmol/L BUN 35.0 H (9.0-27.0) mg/dL BUN/Creatinine Ratio 50.00 H (12.00-20.00) Ratio Glucose 114 H (70-110) mg/dL Calcium 8.5 L (8.7-10.3) mg/dL Ammonia 38 H (<30) umol/L Assessment and Plan Plan: 1 metastatic carcinoma most likely of a lung primary. The patient has chronic elevation of mediastinal lymph node/mass causing mass effect and encasing of the hilar structures in addition to possibility of an early SVC syndrome. The patient also has heterogeneous liver with hepatomegaly and abnormal LFTs consistent with hepatic metastases. Patient also has some bilateral upper lobe groundglass infiltrates with an elevated pro-calcitonin level. the patient also has bilateral pleural effusions. Patient is status post bronchoscopy with biopsies on 03/30/2021, with preliminary results positive for carcinoma, awaiting final report. 2 massive hepatomegaly with abnormal LFTs with an obstructive pattern and elevation of the alkaline phosphatase, consider underlying malignancy. Consider alcoholic liver disease. 3 acute hypoxic respiratory failure, currently on 4 L about 2 by nasal cannula. 4 ascites and supplement interstitial edema 5 history of alcohol consumption in moderation according to her although the patient seems to be taken around 6 beers every 2-3 days or 3 times a week 6 smoker 7 extremely exhaustion and fatigue 8 leukocytosis 9 jaundice with an abnormal LFTs with elevated AST and AST and obstructive hepatic pattern. 10 sinus tachycardia, probably related to her underlying malignancy. 11 possible early SVC syndrome, patient is going to start palliative external beam radiation Plan: Awaiting final biopsy results Radiation oncology has been consulted and planning on starting palliative external beam radiation for SVC syndrome Continue current medical treatment I performed a history & physical examination of the patient and discussed their management with my nurse practitioner, Zarina Ohara. I reviewed the nurse practitioner's note and agree with the documented findings and plan of care. Lung sounds are positive for diminished breath sounds with some limited crackles throughout the lung willis. The findings and the impression was discussed with the patient. I attest to the documentation by the nurse practitioner. Time with Patient: Less than 30
[2021-03-31] MEDS: ESCITALOPRAM 10 MG TAB PO SCH (13:55)
--- NOTE | 2021-03-31 14:49 | P.PN ---
Subjective Progress Note Date: 03/31/21 Principal diagnosis: Lung mass, hepatomegaly and elevated liver enzymes. In follow-up today patient has no specific c/o, she is going to be simulated for palliative radiation. No hemoptysis post lung biopsy. Objective - Vital Signs Vital signs: Vital Signs Temp 97.5 F L 03/31/21 08:00 Pulse 112 H 03/31/21 08:52 Resp 20 03/31/21 08:52 BP 119/75 03/31/21 08:00 Pulse Ox 91 L 03/31/21 08:36 Intake & Output 03/30/21 03/31/21 03/31/21 18:59 06:59 18:59 Intake Total 350 Balance 350 Weight 81.193 kg Intake: IV 350 Other: Voiding Method Bedside Commode Bedside Commode Bedside Commode # Voids 3 4 # Bowel Movements 2 4 - Constitutional General appearance: Present: average body habitus, cooperative, no acute distress - EENT Eyes: Present: EOMI ENT: Present: hearing grossly normal - Respiratory Details: unlabored resp at rest - Cardiovascular Details: improved swelling on the rt upper body - Neurologic Neurologic: Present: CNII-XII intact - Musculoskeletal Musculoskeletal: Present: strength equal bilaterally - Psychiatric Psychiatric: Present: A&O x's 3, appropriate affect, intact judgment & insight - Labs CBC & Chem 7: 03/31/21 05:44 03/31/21 05:44 Labs: Abnormal Lab Results - Last 24 Hours (Table) 03/30/21 03/31/21 03/31/21 Range/Units 16:20 05:44 05:44 WBC 19.99 H (4.50-10.00) X 10*3/uL RBC 3.98 L (4.10-5.20) X 10*6/uL MCV 98.5 H (80.0-97.0) fL RDW 15.5 H (11.5-14.5) % Absolute Nucleated RBC 0.06 H (0.00-0.00) X 10*3/uL Immature Gran # 0.81 H (0.00-0.04) X 10*3/uL Neutrophils # 16.85 H (1.80-7.70) X 10*3/uL Basophils # 0.11 H (0.00-0.10) X 10*3/uL NRBC/100 WBC Diff 0.3 H (0.0-0.0) /100 WBCS Potassium 3.4 L (3.5-5.5) mmol/L Anion Gap 14.10 H (4.00-12.00) mmol/L BUN 35.0 H (9.0-27.0) mg/dL BUN/Creatinine Ratio 50.00 H (12.00-20.00) Ratio Glucose 114 H (70-110) mg/dL Calcium 8.5 L (8.7-10.3) mg/dL Ammonia 38 H (<30) umol/L Assessment and Plan (1) Lung mass Narrative/Plan: Transbronchial bx done, carcinoma is preliminary finding. MRI of the brain was negative for malignancy. PET scan will be planned for outpatient to complete staging. Patient will follow-up with Medical Oncology. Then final treatment recommendations will be given. Dr. Seaman and Radiation Onc discussed case. Palliative XRT is recommended for SVC symptoms. Cont steroids for now. Current Visit: Yes Status: Acute Priority: High Code(s): R91.8 - OTHER NONSPECIFIC ABNORMAL FINDING OF LUNG FIELD SNOMED Code(s): 975387988 (2) Elevated liver function tests Current Visit: Yes Status: Acute Priority: High Code(s): R79.89 - OTHER SPECIFIED ABNORMAL FINDINGS OF BLOOD CHEMISTRY SNOMED Code(s): 222952959 (3) Hepatomegaly Narrative/Plan: Secondary to EtOH. Question if there is malignancy in the liver. Staging PET scan planned for outpatient will give us more information. Current Visit: Yes Status: Acute Priority: High Code(s): R16.0 - HEPATOMEGALY, NOT ELSEWHERE CLASSIFIED SNOMED Code(s): 97552728 (4) SVC (superior vena cava obstruction) Narrative/Plan: No DVT in the upper extremities. Patient converted to oral steroids. Cont for now. Will taper in near future. Palliative Radiation started Current Visit: Yes Status: Acute Priority: High Code(s): I87.1 - COMPRESS ION OF VEIN SNOMED Code(s): 320682106
--- NOTE | 2021-03-31 16:53 | P.PN ---
Subjective Progress Note Date: 03/31/21 Sharon Power is a 55 yo F with PMH of tobacco abuse who presented to the ED complaining of a 2 month history of progressive weakness, malaise and shortness of breath. She states she has noticed overall poor energy levels as well as swelling, abdominal fullness and breast fullness. She feels in the past week her breathing worsened which prompted her to come in. She denies fever, cough, chest pain or diaphoresis. On presentation she was tachycardic and hypoxic, WBC 22k, AST/ALT 240, 150, alk phos 500. CXR on presentation with bilateral infiltrates and effusions. CT abd/pelvis with hepatomegly and diffuse densities. She has never had a colonoscopy or mammogram and has a 45 pack year smoking history. 03/30/2021 maintained on Zosyn, Zithromax and IV Decadron . NPO, scheduled for a diagnostic bronchoscopy today with tissue biopsy. Maintaining O2 sats in the low 90s on 4 L nasal cannula. Tachycardic heart rates up to the 110s. 03/31/2021 completed diagnostic bronchoscopy yesterday reporting a mediastinal mass involving right paratracheal, precarinal and subcarinal area causing encasement of hilar structures and right main pulmonary artery, causing mass effect on the SVC, biopsies obtained. Denies hemoptysis. Maintaining O2 sats in the low 90s on 5 L nasal cannula. Mild tachycardia. Complains of diffuse abdominal discomfort, Gas-X and Lasix ordered. Patient is scheduled currently for palliative radiation. Afebrile, T-max., 99.8. Objective - Vital Signs Vital signs: Vital Signs Temp 98.2 F 03/31/21 14:00 Pulse 117 H 03/31/21 14:00 Resp 20 03/31/21 14:00 BP 122/75 03/31/21 14:00 Pulse Ox 91 L 03/31/21 14:00 Intake & Output 03/30/21 03/31/21 03/31/21 18:59 06:59 18:59 Intake Total 350 Balance 350 Weight 81.193 kg Intake: IV 350 Other: Voiding Method Bedside Commode Bedside Commode Bedside Commode # Voids 3 4 # Bowel Movements 2 4 - Exam General: Sitting up in chair, NAD. Vitals reviewed, depressed appearing Eyes: PERRL, EOMI, conjunctiva normal HENT: normocephalic, mucus membranes dry, positive thrush Neck: supple, no JVD Lungs: normal respiratory effort, no wheezes or rales CV: Regular rate and rhythm, no murmur. Peripheral pulses 2+ Abdomen: soft, nontender, positive hepatomegaly. Positive bowel sounds Skin: warm and dry. Neuro: A&Ox3, normal mood and affect - Labs CBC & Chem 7: 03/31/21 05:44 03/31/21 05:44 Labs: Abnormal Lab Results - Last 24 Hours (Table) 03/30/21 03/31/21 03/31/21 Range/Units 16:20 05:44 05:44 WBC 19.99 H (4.50-10.00) X 10*3/uL RBC 3.98 L (4.10-5.20) X 10*6/uL MCV 98.5 H (80.0-97.0) fL RDW 15.5 H (11.5-14.5) % Absolute Nucleated RBC 0.06 H (0.00-0.00) X 10*3/uL Immature Gran # 0.81 H (0.00-0.04) X 10*3/uL Neutrophils # 16.85 H (1.80-7.70) X 10*3/uL Basophils # 0.11 H (0.00-0.10) X 10*3/uL NRBC/100 WBC Diff 0.3 H (0.0-0.0) /100 WBCS Potassium 3.4 L (3.5-5.5) mmol/L Anion Gap 14.10 H (4.00-12.00) mmol/L BUN 35.0 H (9.0-27.0) mg/dL BUN/Creatinine Ratio 50.00 H (12.00-20.00) Ratio Glucose 114 H (70-110) mg/dL Calcium 8.5 L (8.7-10.3) mg/dL Ammonia 38 H (<30) umol/L Assessment and Plan Assessment: Acute hypoxic respiratory failure secondary to right-sided lung mass with significant mediastinal lymphadenopathy, underlying metastatic disease. Early SVC syndrome related to encasement of SVC and right mainstem bronchus by the lung mass. Status post diagnostic bronchoscopy, carcinoma, suspect lung as primary, cytology pending. Elevated LFTs, hepatomegaly, suspect hepatic metastasis Sinus tachycardia secondary to #1 Hyponatremia Nicotine dependence Alcohol abuse Leukocytosis Plan: Continue on current medication regime ,monitoring and symptomatic treatment. Cytology pending. Palliative radiation pending as per oncology and radiation oncology .Lexapro initiated for depression .Prognosis guarded given multiple complex medical issues. The impression and plan of care has been dictated as directed. : I performed a history and examination of this patient, discussed the same with the dictator. I agree with the dictator's note ,documented as a scribe. Any additional findings or plans will be noted.
[2021-04-01] MEDS ORDERED: Potassium Replacement Protocol 1 EACH MISC MISCELLANE PRN (03:04)
[2021-04-01] MEDS: POTASSIUM CHLORIDE ER 20 MEQ TAB.ER PO SCH ×2 (03:48→06:11)
[2021-04-01 07:27] LABS: ALT 157 U/L (4-34); AST 204 U/L (14-36); African American GFR (CKD) >90 (>60 ml/min/1.73 sqM); Albumin 3.2 g/dL (3.5-5.0); Albumin/Globulin Ratio 1.3; Alkaline Phosphatase 616 U/L (38-126); Anion Gap 6 mmol/L; Blood Urea Nitrogen 38 mg/dL (7-17); Calcium 9.3 mg/dL (8.4-10.2); Carbon Dioxide 27 mmol/L (22-30); Chloride 104 mmol/L (98-107); Globulin 2.5 g/dL; Glucose 118 mg/dL (74-99); Non-African American GFR(CKD) 85 (>60 ml/min/1.73 sqM); Potassium 3.6 mmol/L (3.5-5.1); Sodium 137 mmol/L (137-145); Total Bilirubin 4.8 mg/dL (0.2-1.3); Total Protein 5.7 g/dL (6.3-8.2)
[2021-04-01] MEDS: NYSTATIN 100,000 UNIT/ML SUSP 500,000 UNIT/5 ML CUP PO SCH ×4 (07:44→21:20)
[2021-04-01] MEDS: DEXAMETHASONE SOD PHOSPHATE 4 MG/ML 1 ML VIAL IV SCH (07:44)
[2021-04-01] MEDS: LACTULOSE 20 GM/30 ML CUP PO SCH ×2 (07:44→21:22)
[2021-04-01] MEDS: METOPROLOL TARTRATE 12.5 MG TAB PO SCH ×2 (07:44→21:20)
[2021-04-01] MEDS: SENNOSIDES 8.6 MG TAB PO SCH ×2 (07:44→21:20)
[2021-04-01] MEDS: ESCITALOPRAM 10 MG TAB PO SCH (07:45)
[2021-04-01] MEDS: PANTOPRAZOLE 40 MG TABLET PO SCH ×2 (07:45→16:10)
[2021-04-01] MEDS: PIPERACILLIN-TAZOBACTAM 3.375 GM in SODIUM CHLORIDE 0.9% 100 ML IVPB SCH ×3 (07:45→23:40)
--- NOTE | 2021-04-01 10:44 | P.PN ---
Subjective Progress Note Date: 04/01/21 Principal diagnosis: Metastatic carcinoma most likely of a lung primary with mediastinal lymphadenopathy, and right hilar mass, SVC syndrome On 03/31/2001 patient seen in follow-up on medical surgical floor. She is up in the chair today, she is weak, but appears to be in no acute distress, she is evidence of oxygen her pulse ox is 91-93%, she had isolated low-grade fevers ov ernight, she slightly tachycardic with a rate of 112 BPM, she denies any acute respiratory distress, lung sounds are diminished, with some limited crackles at the right base. No hemoptysis, no complaints of chest pain. Still awaiting results of the Lung biopsies. Radiation oncology he has been consulted, medical oncology is following. Vital signs have been stable. Preliminary lung biopsy results consisting of carcinoma. Radiation oncology is planning on palliative external beam radiation therapy mediastinum and right lung for SVC syndrome. On 04 01 2021 patient seen in follow-up on medical surgical floor, patient is status post bronchoscopy with biopsies of the right upper lobe and kill tumor, needle aspirate biopsy of the right upper lobe and needle aspirate of the anterior mediastinal mass. Pathology results are still pending at this time. She denies any specific complaints, she is sitting up in the chair, appears to be in no acute distress, she states her breathing is comfortable, she is on 5 L of oxygen with pulse ox of 95%, she's been afebrile, hemodynamically she is been stable, no complaints of hemoptysis, no compressive chest discomfort, she still has generalized edema involving her upper and lower extremities and some truncal edema, overall not worsening. Patient was seen in consultation by radiation oncology, was plan on starting palliative radiation to the mediastinum and right lung for SVC syndrome. Acute events overnight, today's labs are pending, Objective - Vital Signs Vital signs: Vital Signs Temp 98.2 F 04/01/21 08:00 Pulse 107 H 04/01/21 08:00 Resp 18 04/01/21 08:00 BP 124/73 04/01/21 08:00 Pulse Ox 95 04/01/21 08:44 Intake & Output 03/31/21 04/01/21 04/01/21 18:59 06:59 18:59 Intake Total 200 Balance 200 Intake: Intake, IV Titration 200 Amount Piperacillin-Tazobactam 3 200 .375 gm In Sodium Chloride 0.9% 100 ml @ 25 mls/hr IVPB Q8H [facility] Rx#: [id number] Other: Voiding Method Bedside Commode Bedside Commode # Voids 3 # Bowel Movements 1 - Exam GENERAL EXAM: Alert, 55-year-old white female on 5 L of oxygen and the pulse ox of 91-93%, comfortable in no apparent distress. HEAD: Normocephalic/atraumatic. EYES: Normal reaction of pupils, equal size. Conjunctiva pink, sclera white. NOSE: Clear with pink turbinates. THROAT: No erythema or exudates. NECK: No masses, no JVD, no thyroid enlargement, no adenopathy. CHEST: No chest wall deformity. Symmetrical expansion. LUNGS: Equal air entry with diminished breath sounds with some limited crackles at the right base CVS: Regular rate and rhythm, normal S1 and S2, no gallops, no murmurs, no rubs ABDOMEN: Soft, nontender. No hepatosplenomegaly, normal bowel sounds, no guarding or rigidity. EXTREMITIES: No clubbing, mild generalized edema, no cyanosis, 2+ pulses and upper and lower extremities. MUSCULOSKELETAL: Muscle strength and tone normal. SPINE: No scoliosis or deformity SKIN: No rashes CENTRAL NERVOUS SYSTEM: Alert and oriented -3. No focal deficits, tone is normal in all 4 extremities. PSYCHIATRIC: Alert and oriented -3. Appropriate affect. Intact judgment and insight. - Labs CBC & Chem 7: 03/31/21 05:44 04/01/21 06:50 Labs: Abnormal Lab Results - Last 24 Hours (Table) 04/01/21 Range/Units 06:50 BUN 38 H (7-17) mg/dL Glucose 118 H (74-99) mg/dL Total Bilirubin 4.8 H (0.2-1.3) mg/dL AST 204 H (14-36) U/L ALT 157 H (4-34) U/L Alkaline Phosphatase 616 H (38-126) U/L Total Protein 5.7 L (6.3-8.2) g/dL Albumin 3.2 L (3.5-5.0) g/dL Assessment and Plan Plan: 1 metastatic carcinoma most likely of a lung primary. The patient has chronic elevation of mediastinal lymph node/mass causing mass effect and encasing of the hilar structures in addition to possibility of an early SVC syndrome. The patient also has heterogeneous liver with hepatomegaly and abnormal LFTs consistent with hepatic metastases. Patient also has some bilateral upper lobe groundglass infiltrates with an elevated pro-calcitonin level. the patient also has bilateral pleural effusions. Patient is status post bronchoscopy with biopsies on 03/30/2021, with preliminary results positive for carcinoma, jazmin becerra final report. 2 massive hepatomegaly with abnormal LFTs with an obstructive pattern and elevat ion of the alkaline phosphatase, consider underlying malignancy. Consider alcoholic liver disease. 3 acute hypoxic respiratory failure, currently on 4 L about 2 by nasal cannula. 4 ascites and supplement interstitial edema 5 history of alcohol consumption in moderation according to her although the patient seems to be taken around 6 beers every 2-3 days or 3 times a week 6 smoker 7 extremely exhaustion and fatigue 8 leukocytosis 9 jaundice with an abnormal LFTs with elevated AST and AST and obstructive hepatic pattern. 10 sinus tachycardia, probably related to her underlying malignancy. 11 possible early SVC syndrome, patient is going to start palliative external beam radiation Plan: Awaiting final biopsy results Radiation oncology has been consulted, and patient will be started on external beam radiation for SVC syndrome She denies any specific complaints, Wean down FiO2 as tolerated Patient denies dyspnea, no cough,no fever or chills We'll continue to follow I performed a history & physical examination of the patient and discussed their management with my nurse practitioner, Zarina Ohara. I reviewed the nurse practitioner's note and agree with the documented findings and plan of care. Lung sounds are positive for diminished breath sounds with some limited crackles throughout the lung willis. The findings and the impression was discussed with the patient. I attest to the documentation by the nurse practitioner. Time with Patient: Less than 30
[2021-04-01] MEDS ORDERED: ESCITALOPRAM 10 MG TAB PO STA (13:55)
[2021-04-01] MEDS: dexAMETHasone 4 MG TAB PO SCH ×2 (14:46→23:41)
--- NOTE | 2021-04-01 15:20 | P.PN ---
Subjective Progress Note Date: 04/01/21 Sharon Power is a 55 yo F with PMH of tobacco abuse who presented to the ED complaining of a 2 month history of progressive weakness, malaise and shortness of breath. She states she has noticed overall poor energy levels as well as swelling, abdominal fullness and breast fullness. She feels in the past week her breathing worsened which prompted her to come in. She denies fever, cough, chest pain or diaphoresis. On presentation she was tachycardic and hypoxic, WBC 22k, AST/ALT 240, 150, alk phos 500. CXR on presentation with bilateral infiltrates and effusions. CT abd/pelvis with hepatomegly and diffuse densities. She has never had a colonoscopy or mammogram and has a 45 pack year smoking history. 03/30/2021 maintained on Zosyn, Zithromax and IV Decadron . NPO, scheduled for a diagnostic bronchoscopy today with tissue biopsy. Maintaining O2 sats in the low 90s on 4 L nasal cannula. Tachycardic heart rates up to the 110s. 03/31/2021 completed diagnostic bronchoscopy yesterday reporting a mediastinal mass involving right paratracheal, precarinal and subcarinal area causing encasement of hilar structures and right main pulmonary artery, causing mass effect on the SVC, biopsies obtained. Denies hemoptysis. Maintaining O2 sats in the low 90s on 5 L nasal cannula. Mild tachycardia. Complains of diffuse abdominal discomfort, Gas-X and Lasix ordered. Patient is scheduled currently for palliative radiation. Afebrile, T-max., 99.8. 04/01/2021 . Pathology pending. Scheduled for palliative radiation again today. Minimal cough, no hemoptysis, maintaining O2 sats in the mid 90s on 5 L nasal cannula. Denies any chest pain, chest pressure, palpitations or increasing shortness of breath. Afebrile. Yesterday antidepressant initiated, tolerated well denies any nausea or vomiting. Objective - Vital Signs Vital signs: Vital Signs Temp 98.8 F 04/01/21 14:00 Pulse 55 L 04/01/21 14:00 Resp 18 04/01/21 14:00 BP 115/76 04/01/21 14:00 Pulse Ox 91 L 04/01/21 14:00 Intake & Output 03/31/21 04/01/21 04/01/21 18:59 06:59 18:59 Intake Total 200 Balance 200 Intake: Intake, IV Titration 200 Amount Piperacillin-Tazobactam 3 200 .375 gm In Sodium Chloride 0.9% 100 ml @ 25 mls/hr IVPB Q8H [facility] Rx#: [id number] Other: Voiding Method Bedside Commode Bedside Commode # Voids 3 1 # Bowel Movements 1 3 - Exam General: Sitting up in chair, NAD. Vitals reviewed, depressed Eyes: PERRL, EOMI, conjunctiva normal HENT: normocephalic, mucus membranes dry Neck: supple, no JVD Lungs: normal respiratory effort, no wheezes or rales CV: Regular rate and rhythm, no murmur. Peripheral pulses 2+ Abdomen: soft, nontender, positive hepatomegaly. Positive bowel sounds Skin: warm and dry. EXTR: Generalized edema upper and lower extremities. Neuro: A&Ox3, normal mood and affect - Labs CBC & Chem 7: 03/31/21 05:44 04/01/21 06:50 Labs: Abnormal Lab Results - Last 24 Hours (Table) 04/01/21 Range/Units 06:50 BUN 38 H (7-17) mg/dL Glucose 118 H (74-99) mg/dL Total Bilirubin 4.8 H (0.2-1.3) mg/dL AST 204 H (14-36) U/L ALT 157 H (4-34) U/L Alkaline Phosphatase 616 H (38-126) U/L Total Protein 5.7 L (6.3-8.2) g/dL Albumin 3.2 L (3.5-5.0) g/dL Assessment and Plan Assessment: Acute hypoxic respiratory failure secondary to right-sided lung mass with significant mediastinal lymphadenopathy, underlying metastatic disease. Early SVC syndrome related to encasement of SVC and right mainstem bronchus by the lung mass. Status post diagnostic bronchoscopy, carcinoma, suspect lung as primary, cytology pending. Elevated LFTs, hepatomegaly, suspect hepatic metastasis Sinus tachycardia secondary to #1 Hyponatremia, resolved Nicotine dependence Alcohol abuse Leukocytosis Plan: Continue on current medication regime ,monitoring and symptomatic treatment. Palliative radiation today. Lexapro dose increased .pathology pe nding.Prognosis guarded given multiple complex medical issues. The impression and plan of care has been dictated as directed. DrVinnie: I performed a history and examination of this patient, discussed the same with the dictator. I agree with the dictator's note ,documented as a scribe. Any additional findings or plans will be noted.
--- NOTE | 2021-04-01 15:33 | P.PN ---
Subjective Progress Note Date: 04/01/21 Principal diagnosis: Small cell lung cancer, hepatomegaly and elevated liver enzymes. In follow-up today patient has no specific c/o, Her pathology was not resulted when I saw her. We briefly went over her plan of care as it was as of this morning. She is tolerating the steroids okay, no indigestion or heartburn yet, she is tolerating the PPI. Pain is controlled on current analgesics. Generalized fatigue moderate to severe, weakness mild, she has had a bowel movement. Objective - Vital Signs Vital signs: Vital Signs Temp 98.8 F 04/01/21 14:00 Pulse 55 L 04/01/21 14:00 Resp 18 04/01/21 14:00 BP 115/76 04/01/21 14:00 Pulse Ox 91 L 04/01/21 14:00 Intake & Output 03/31/21 04/01/21 04/01/21 18:59 06:59 18:59 Intake Total 200 Balance 200 Intake: Intake, IV Titration 200 Amount Piperacillin-Tazobactam 3 200 .375 gm In Sodium Chloride 0.9% 100 ml @ 25 mls/hr IVPB Q8H [facility] Rx#: [id number] Other: Voiding Method Bedside Commode Bedside Commode # Voids 3 1 # Bowel Movements 1 3 - Constitutional General appearance: Present: average body habitus, no acute distress - EENT Eyes: Present: EOMI, scleral icterus ENT: Present: hearing grossly normal - Respiratory Respiratory: bilateral: CTA, diminished (Weak inspiratory effort) - Cardiovascular Rhythm: regular Heart sounds: normal: S1, S2 - Peripheral edema leg Peripheral Edema: bilateral: None - Neurologic Neurologic Comment(s): Slow response time. MRI of the brain was negative Neurologic: Present: CNII-XII intact - Psychiatric Psychiatric: Present: A&O x's 3, appropriate affect - Labs CBC & Chem 7: 03/31/21 05:44 04/01/21 06:50 Labs: Abnormal Lab Results - Last 24 Hours (Table) 04/01/21 Range/Units 06:50 BUN 38 H (7-17) mg/dL Glucose 118 H (74-99) mg/dL Total Bilirubin 4.8 H (0.2-1.3) mg/dL AST 204 H (14-36) U/L ALT 157 H (4-34) U/L Alkaline Phosphatase 616 H (38-126) U/L Total Protein 5.7 L (6.3-8.2) g/dL Albumin 3.2 L (3.5-5.0) g/dL Assessment and Plan (1) Small cell lung cancer Narrative/Plan: Transbronchial bx done, pathology returned after patient was seen today, Small cell lung cancer. MRI of the brain was negative for malignancy. CT of the abdomen and pelvis discussed suspicious findings in the liver, nothing definitive. MRI of the liver as ordered to further evaluate. Nuclear medicine bone scan ordered. PET scan Is scheduled for 04/17/21. Palliative radiation for SVC syndrome symptoms. Continue steroids. Steroid taper and PPI prescriptions sent the patient preferred pharmacy Chemotherapy would not be given concurrently with radiation. Allow for comple tion of radiation. Continue the steroids. Patient is stable and would anticipate ability to be discharged home. Orders for combination chemotherapy/immunotherapy first line for small cell lung cancer has been sent to Dr. Seaman's billing Department and chemotherapy infusion nurses Current Visit: Yes Status: Acute Priority: High Code(s): C34.90 - MALIGNANT NEOPLASM OF UNSP PART OF UNSP BRONCHUS OR LUNG SNOMED Code(s): 543853065 (2) Elevated liver function tests Current Visit: Yes Status: Acute Priority: High Code(s): R79.89 - OTHER SPECIFIED ABNORMAL FINDINGS OF BLOOD CHEMISTRY SNOMED Code(s): 662042755 (3) Hepatomegaly Narrative/Plan: Secondary to EtOH. Question if there is malignancy in the liver. MRI of the liver ordered as patient is going to be starting treatment before she is able to get her staging PET scan Current Visit: Yes Status: Acute Priority: High Code(s): R16.0 - HEPATOMEGALY, NOT ELSEWHERE CLASSIFIED SNOMED Code(s): 06558926 (4) SVC (superior vena cava obstruction) Narrative/Plan: No DVT in the upper extremities. Patient converted to oral steroids. Cont for now. Will taper in near future. Palliative Radiation started. Current Visit: Yes Status: Acute Priority: High Code(s): I87.1 - COMPRESSION OF VEIN SNOMED Code(s): 043631160
[2021-04-01] MEDS ORDERED: LORazepam 2 MG/ML INJ IV PRN (16:56)
[2021-04-02] MEDS: PIPERACILLIN-TAZOBACTAM 3.375 GM in SODIUM CHLORIDE 0.9% 100 ML IVPB SCH ×3 (07:14→23:22)
[2021-04-02] MEDS: dexAMETHasone 4 MG TAB PO SCH ×3 (07:14→23:22)
[2021-04-02] MEDS: PANTOPRAZOLE 40 MG TABLET PO SCH ×2 (07:14→16:06)
[2021-04-02] MEDS: METOPROLOL TARTRATE 12.5 MG TAB PO SCH ×2 (07:15→21:18)
[2021-04-02] MEDS: ESCITALOPRAM 20 MG TAB PO SCH (07:15)
[2021-04-02] MEDS: SENNOSIDES 8.6 MG TAB PO SCH ×2 (07:15→21:18)
[2021-04-02] MEDS: LACTULOSE 20 GM/30 ML CUP PO SCH ×2 (07:15→21:18)
[2021-04-02] MEDS: NYSTATIN 100,000 UNIT/ML SUSP 500,000 UNIT/5 ML CUP PO SCH ×4 (08:13→21:18)
[2021-04-02] MEDS ORDERED: LORazepam 2 MG/ML INJ IV STA (09:30)
--- NOTE | 2021-04-02 11:41 | P.PN ---
Progress Note - Text Progress Note Date: 04/02/21 At discharge patient will require home O2, 4 L nasal cannula. Hypoxic respiratory failure, O2 sat on room air 83%, requiring 4 L nasal cannula to maintain O2 sats in the 90s. Patient will also require hospital bed, secondary to moderate to severe fatigue, weakness related to small cell lung CA. The impression and plan of care has been dictated as directed. : I performed a history and examination of this patient, discussed the same with the dictator. I agree with the dictator's note ,documented as a scribe. Any additional findings or plans will be noted.
--- NOTE | 2021-04-02 12:25 | MR ---
MR liver without contrast Multiplanar multisequence imaging obtained through the liver, comparison to CT scan dated 03/26/2021 HISTORY: Abnormal CT, small cell lung carcinoma Lack of intravenous contrast could compromise sensitivity. There are too numerous to count hepatic lesions are present throughout the liver, near complete repla cement of the liver parenchyma with masses. The liver is enlarged markedly. There is ascites. Gallbla dder is within normal limits. Mass effect is suspected on the right kidney. There is minimal ascites present. There are anasarca changes present. No evident retroperitoneal adenopathy. Pression: Findings most likely represent metastatic disease to the liver. There is motion on the exam .
--- NOTE | 2021-04-02 12:35 | P.PN ---
Subjective Progress Note Date: 04/02/21 Principal diagnosis: Metastatic carcinoma most likely of a lung primary with mediastinal lymphadenopathy, and right hilar mass, SVC syndrome On 03/31/2001 patient seen in follow-up on medical surgical floor. She is up in the chair today, she is weak, but appears to be in no acute distress, she is evidence of oxygen her pulse ox is 91-93%, she had isolated low-grade fevers ov ernight, she slightly tachycardic with a rate of 112 BPM, she denies any acute respiratory distress, lung sounds are diminished, with some limited crackles at the right base. No hemoptysis, no complaints of chest pain. Still awaiting results of the Lung biopsies. Radiation oncology he has been consulted, medical oncology is following. Vital signs have been stable. Preliminary lung biopsy results consisting of carcinoma. Radiation oncology is planning on palliative external beam radiation therapy mediastinum and right lung for SVC syndrome. On 04 01 2021 patient seen in follow-up on medical surgical floor, patient is status post bronchoscopy with biopsies of the right upper lobe and kill tumor, needle aspirate biopsy of the right upper lobe and needle aspirate of the anterior mediastinal mass. Pathology results are still pending at this time. She denies any specific complaints, she is sitting up in the chair, appears to be in no acute distress, she states her breathing is comfortable, she is on 5 L of oxygen with pulse ox of 95%, she's been afebrile, hemodynamically she is been stable, no complaints of hemoptysis, no compressive chest discomfort, she still has generalized edema involving her upper and lower extremities and some truncal edema, overall not worsening. Patient was seen in consultation by radiation oncology, was plan on starting palliative radiation to the mediastinum and right lung for SVC syndrome. Acute events overnight, today's labs are pending, On 04/02/2010 were patient seen in follow-up on medical surgical floor. She has just returned from getting her MRI of the liver done. She is quite weak, she is unable to transfer herself over from the stretcher to the bed. She is requiring extensive assistance. She still requiring 4 L of oxygen pulse ox is 95%, denies worsening dyspnea other than with exertion. No cough, no wheezing, room air p ulse ox was 83%, patient will need home oxygen to go home on, patient has been afebrile, vital signs have been stable. No acute events overnight. She remains generally swollen, weak. Today's labs have been reviewed, her sodium is 137, potassium is 3.6, chloride is 104, BUN is 38, creatinine 0.79. We discussed case with medical oncology, and radiation will be started first, and chemotherapy will be started in 1-2 weeks after discharge home. Patient is supposed to go home today, follow-up with medical oncology. Objective - Vital Signs Vital signs: Vital Signs Temp 97.7 F 04/02/21 07:13 Pulse 100 04/02/21 11:14 Resp 16 04/02/21 07:13 BP 118/72 04/02/21 07:13 Pulse Ox 83 L 04/02/21 11:14 Intake & Output 04/01/21 04/02/21 04/02/21 18:59 06:59 18:59 Intake Total 200 100 Balance 200 100 Intake: Intake, IV Titration 200 100 Amount Piperacillin-Tazobactam 3 200 100 .375 gm In Sodium Chloride 0.9% 100 ml @ 25 mls/hr IVPB Q8H [facility] Rx#: [id number] Other: Voiding Method Bedside Commode # Voids 1 # Bowel Movements 3 - Exam GENERAL EXAM: Alert, 55-year-old white female on 4 L of oxygen and the pulse ox of 93%, comfortable in no apparent distress. HEAD: Normocephalic/atraumatic. EYES: Normal reaction of pupils, equal size. Conjunctiva pink, sclera white. NOSE: Clear with pink turbinates. THROAT: No erythema or exudates. NECK: No masses, no JVD, no thyroid enlargement, no adenopathy. CHEST: No chest wall deformity. Symmetrical expansion. LUNGS: Equal air entry with diminished breath sounds with some limited crackles at the right base CVS: Regular rate and rhythm, normal S1 and S2, no gallops, no murmurs, no rubs ABDOMEN: Soft, nontender. No hepatosplenomegaly, normal bowel sounds, no guarding or rigidity. EXTREMITIES: No clubbing, mild generalized edema, no cyanosis, 2+ pulses and upper and lower extremities. MUSCULOSKELETAL: Muscle strength and tone normal. SPINE: No scoliosis or deformity SKIN: No rashes CENTRAL NERVOUS SYSTEM: Alert and oriented -3. No focal deficits, tone is normal in all 4 extremities. PSYCHIATRIC: Alert and oriented -3. Appropriate affect. Intact judgment and insight. - Labs CBC & Chem 7: 03/31/21 05:44 04/01/21 06:50 Assessment and Plan Plan: 1 metastatic small cell carcinoma of the lung. The patient has chronic elevation of mediastinal lymph node/mass causing mass effect and encasing of the hilar structures in addition to possibility of an early SVC syndrome. The patient also has heterogeneous liver with hepatomegaly and abnormal LFTs consistent with hepatic metastases. Patient also has some bilateral upper lobe groundglass infiltrates with an elevated pro-calcitonin level. the patient also has bilateral pleural effusions. Patient is status post bronchoscopy with biopsies on 03/30/2021, with preliminary results positive for carcinoma, awaiting final report. 2 massive hepatomegaly with abnormal LFTs with an obstructive pattern and elevation of the alkaline phosphatase, consider underlying malignancy. Consider alcoholic liver disease. 3 acute hypoxic respiratory failure, currently on 4 L about 2 by nasal cannula. 4 ascites and supplement interstitial edema 5 history of alcohol consumption in moderation according to her although the patient seems to be taken around 6 beers every 2-3 days or 3 times a week 6 smoker 7 extremely exhaustion and fatigue 8 leukocytosis 9 jaundice with an abnormal LFTs with elevated AST and AST and obstructive hepatic pattern. 10 sinus tachycardia, probably related to her underlying malignancy. 11 possible early SVC syndrome, patient is going to start palliative external beam radiation Plan: No acute events overnight, patient continues to be weak and fatigued Patient is being discharged home today Was started on radiation, chemotherapy in 1-2 weeks Overall prognosis is poor I performed a history & physical examination of the patient and discussed their management with my nurse practitioner, Zarina Ohara. I reviewed the nurse practitioner's note and agree with the documented findings and plan of care. Lung sounds are positive for diminished breath sounds with some limited crackles throughout the lung willis. The findings and the impression was discussed with the patient. I attest to the documentation by the nurse practitioner. Time with Patient: Less than 30
--- NOTE | 2021-04-02 16:16 | NM ---
EXAMINATION TYPE: NM bone scan whole body DATE OF EXAM: 04/02/2021 COMPARISON: NONE HISTORY: SCLC, initial staging Delayed whole-body scanning was performed following the injection of 25.2 mCi Tc 99m MDP. Images acq uired 6.5 hours post injection. FINDINGS: No intense uptake to suggest metastatic disease or osseous lesion. Degenerative uptake about the thor acic and lumbar spine. Degenerative uptake about the shoulders and knees. IMPRESSION: No scintigraphic evidence for osseous lesion or metastatic disease.
--- NOTE | 2021-04-02 18:39 | P.PN ---
Subjective Progress Note Date: 04/02/21 Principal diagnosis: Small cell lung cancer, hepatomegaly and elevated liver enzymes. In follow-up today patient has no specific c/o, she is pretty lethargic-received ativan for MRI. and daughter are at bedside. Objective - Vital Signs Vital signs: Vital Signs Temp 98 F 04/02/21 13:40 Pulse 102 H 04/02/21 13:40 Resp 18 04/02/21 13:40 BP 124/76 04/02/21 13:40 Pulse Ox 90 L 04/02/21 13:40 Intake & Output 04/01/21 04/02/21 04/02/21 18:59 06:59 18:59 Intake Total 200 100 Balance 200 100 Intake: Intake, IV Titration 200 100 Amount Piperacillin-Tazobactam 3 200 100 .375 gm In Sodium Chloride 0.9% 100 ml @ 25 mls/hr IVPB Q8H [facility] Rx#: [id number] Other: Voiding Method Bedside Commode # Voids 1 # Bowel Movements 3 - Constitutional General appearance: Present: average body habitus, cooperative, no acute distress - EENT Eyes: Present: anicteric sclerae, EOMI ENT: Present: hearing grossly normal - Respiratory Respiratory: right: diminished, rales, wheezing, left: CTA - Cardiovascular Rhythm: regular Heart sounds: normal: S1, S2 Abnormal Heart Sounds: Absent: systolic murmur, diastolic murmur, rub, S3 Gallop, S4 Gallop, click, other - Peripheral edema leg Peripheral Edema: bilateral: None - Gastrointestinal General gastrointestinal: Present: normal bowel sounds, soft. Absent: absent bowel sounds, decreased bowel sounds, distended, hepatomegaly, hyperactive bowel sounds, organomegaly, rigid, scaphoid, splenomegaly, tenderness, umbilical hernia, ventral hernia - Musculoskeletal Musculoskeletal: Present: generalized weakness - Labs CBC & Chem 7: 03/31/21 05:44 04/01/21 06:50 - Imaging and Cardiology MRI liver adn NM bone scan reports reviewed Assessment and Plan (1) Small cell lung cancer Narrative/Plan: Transbronchial bx done, pathology returned, small cell lung cancer. Reviewed diagnosis with pt and family. We discussed the aggressive nature of small cell lung cancer. We discussed that surgery is not used as a treatment option with small cell. We discussed staging of small cell as limited, where radiation would be used in conjunction with chemotherapy to a limited areas of disease, versus extensive where radiation would only be used to palliate symptoms and that disease is much further outside of an area that can be radiated. They do understand the small cell lung cancer is treatable for some time. Most patients who have a good response to treatment surviving 10-18 months. Without treatment survival is about 3-4 months. The family was pretty overwhelmed. We will continue to talk with them and reinforce all of this information. MRI of the brain was negative for malignancy. CT of the abdomen and pelvis discussed suspicious findings in the liver, nothing definitive. MRI of the liver ordered, results after seeing pt and family- metastatic disease. Nuclear medicine bone scan, results reported after family seen, does not appear to be any metastatic disease in the bones. PET scan Is scheduled for 04/17/21. Palliative radiation for SVC syndrome symptoms. Continue steroids. Steroid taper and PPI prescriptions sent the patient preferred pharmacy did come back and discussed the case with patient's sister who is an RN at [employer]. We reviewed that there is disease in the liver. The bone scan had not been completed at that time. We discussed 10-18 month survival with treatment, 3-4 months without treatment. We reviewed briefly the chemothera py/IO that would be used. All of her questions were answered to her satisfaction. Contact information for the office was given to her. Case discussed with Radiation Oncology and Dr. Seaman. Patient is going to complete radiation while in the hospital and then stop. Plan is to start chemotherapy/IO next week. Current Visit: Yes Status: Acute Priority: High Code(s): C34.90 - MALIGNANT NEOPLASM OF UNSP PART OF UNSP BRONCHUS OR LUNG SNOMED Code(s): 231971618 (2) Elevated liver function tests Narrative/Plan: Slightly improved. Likely from disease of malignancy and possibly history of liver damage Current Visit: Yes Status: Acute Priority: High Code(s): R79.89 - OTHER SPECIFIED ABNORMAL FINDINGS OF BLOOD CHEMISTRY SNOMED Code(s): 924290353 (3) Hepatomegaly Narrative/Plan: MRI of the liver is consistent with metastatic disease. Some of the scarring and nodules may be from liver damage from history of EtOH. patient will be treated for malignancy and follow-up imaging of the liver will be compared Current Visit: Yes Status: Acute Priority: High Code(s): R16.0 - HEPATOMEGALY, NOT ELSEWHERE CLASSIFIED SNOMED Code(s): 53859032 (4) SVC (superior vena cava obstruction) Narrative/Plan: No DVT in the upper extremities. Patient converted to oral steroids. Cont for now. Will taper in near future. Palliative Radiation started. Continue palliative radiation while inpatient. Current Visit: Yes Status: Acute Priority: High Code(s): I87.1 - COMPRESSION OF VEIN SNOMED Code(s): 814109303 Time with Patient: Greater than 30
[2021-04-03] MEDS: PIPERACILLIN-TAZOBACTAM 3.375 GM in SODIUM CHLORIDE 0.9% 100 ML IVPB SCH ×3 (07:44→15:43)
[2021-04-03] MEDS: METOPROLOL TARTRATE 12.5 MG TAB PO SCH ×2 (07:45→19:52)
[2021-04-03] MEDS: SENNOSIDES 8.6 MG TAB PO SCH ×2 (07:45→19:52)
[2021-04-03] MEDS: PANTOPRAZOLE 40 MG TABLET PO SCH ×2 (07:45→18:07)
[2021-04-03] MEDS: ESCITALOPRAM 20 MG TAB PO SCH (07:45)
[2021-04-03] MEDS: LACTULOSE 20 GM/30 ML CUP PO SCH ×2 (07:46→19:52)
[2021-04-03] MEDS: dexAMETHasone 4 MG TAB PO SCH ×2 (07:49→15:37)
[2021-04-03] MEDS: NYSTATIN 100,000 UNIT/ML SUSP 500,000 UNIT/5 ML CUP PO SCH ×4 (07:49→22:36)
[2021-04-03 11:04] LABS: ALT 124 U/L (4-34); AST 258 U/L (14-36); African American GFR (CKD) >90 (>60 ml/min/1.73 sqM); Albumin 3.2 g/dL (3.5-5.0); Albumin/Globulin Ratio 1.3; Alkaline Phosphatase 552 U/L (38-126); Anion Gap 7 mmol/L; Blood Urea Nitrogen 36 mg/dL (7-17); Calcium 9.4 mg/dL (8.4-10.2); Carbon Dioxide 28 mmol/L (22-30); Chloride 106 mmol/L (98-107); Globulin 2.4 g/dL; Glucose 112 mg/dL (74-99); Magnesium 2.3 mg/dL (1.6-2.3); Non-African American GFR(CKD) >90 (>60 ml/min/1.73 sqM); Potassium 3.6 mmol/L (3.5-5.1); Sodium 141 mmol/L (137-145); Total Bilirubin 5.4 mg/dL (0.2-1.3); Total Protein 5.6 g/dL (6.3-8.2)
[2021-04-03 11:28] LABS: Basophils # (A) 0.1 k/uL (0-0.2); Basophils % (A) 0 %; Eosinophils # (A) 0.1 k/uL (0-0.7); Eosinophils % (A) 1 %; Lymphocytes # (A) 0.6 k/uL (1.0-4.8); Lymphocytes % (A) 3 %; MCH 31.9 pg (25.0-35.0); MCHC 32.4 g/dL (31.0-37.0); MCV 98.6 fL (80.0-100.0); Mean Platelet Volume 8.7; Monocytes # (A) 0.8 k/uL (0-1.0); Monocytes % (A) 4 %; Neutrophils # (A) 18.7 k/uL (1.3-7.7); Neutrophils % (A) 92 %; Platelet Count 140 k/uL (150-450); RBC 4.06 m/uL (3.80-5.40); RDW 14.6 % (11.5-15.5); WBC 20.4 k/uL (3.8-10.6)
[2021-04-03] MEDS ORDERED: LIDOCAINE 1% INJ 10MG/ML (20 ML MDV) SQ ONE (14:59)
--- NOTE | 2021-04-03 17:03 | P.DS ---
Providers Date of admission: 03/26/21 21:26 Expected date of discharge: 04/02/21 Attending physician: Franklin Carey MD Consults: 03/26/21 21:26 Consult Physician Urgent Consulting Provider: Ivet Almeida Consult Reason/Comments: Pneumonia Do you want consulting provider notified?: Yes 03/27/21 10:23 Consult Physician Routine Consulting Provider: Mg Seaman Consult Reason/Comments: hepatic lesion, elevated LFTs, hepatomegaly, rule out cancer Do you want consulting provider notified?: Yes 03/30/21 15:40 Consult Physician Urgent Consulting Provider: Hayden Wynn Consult Reason/Comments: Palliative Radiation Do you want consulting provider notified?: Already Contacted Primary care physician: Shayla Tadeo Hospital Course: Final Diagnoses: Acute hypoxic respiratory failure secondary to right-sided lung mass with significant mediastinal lymphadenopathy, underlying metastatic disease. Early SVC syndrome related to encasement of SVC and right mainstem bronchus by the lung mass. Status post diagnostic bronchoscopy,cytology reporting small cell lung carcinoma. Moderate to severe fatigue, weakness secondary to small cell lung CA, pain Acute hypoxic respiratory failure secondary to the above. Elevated LFTs, hepatomegaly, suspect hepatic metastasis Sinus tachycardia secondary to #1 Hyponatremia, resolved Nicotine dependence Alcohol abuse Leukocytosis Hospital Course: Sharon Power is a 55 yo F with PMH of tobacco abuse who presented to the ED complaining of a 2 month history of progressive weakness, malaise and shortness of breath. She states she has noticed overall poor energy levels as well as swelling, abdominal fullness and breast fullness. She feels in the past week her breathing worsened which prompted her to come in. She denies fever, cough, chest pain or diaphoresis. On presentation she was tachycardic and hypoxic, WBC 22k, AST/ALT 240, 150, alk phos 500. CXR on presentation with bilateral infiltrates and effusions. CT abd/pelvis with hepatomegly and diffuse densities. She has never had a colonoscopy or mammogram and has a 45 pack year smoking history. 03/30/2021 maintained on Zosyn, Zithromax and IV Decadron . NPO, scheduled for a diagnostic bronchoscopy today with tissue biopsy. Maintaining O2 sats in the low 90s on 4 L nasal cannula. Tachycardic heart rates up to the 110s. 03/31/2021 completed diagnostic bronchoscopy yesterday reporting a mediastinal mass involving right paratracheal, precarinal and subcarinal area causing encasement of hilar structures and right main pulmonary artery, causing mass effect on the SVC, biopsies obtained. Denies hemoptysis. Maintaining O2 sats in the low 90s on 5 L nasal cannula. Mild tachycardia. Complains of diffuse abdominal discomfort, Gas-X and Lasix ordered. Patient is scheduled currently for palliative radiation. Afebrile, T-max., 99.8. 04/01/2021 . Pathology pending. Scheduled for palliative radiation again today. Minimal cough, no hemoptysis, maintaining O2 sats in the mid 90s on 5 L nasal cannula. Denies any chest pain, chest pressure, palpitations or increasing shortness of breath. Afebrile. Yesterday antidepressant initiated, tolerated well denies any nausea or vomiting. 04/02/21 liver MRI, bone scan pending .At discharge patient will require home O2, 4 L nasal cannula. Hypoxic respiratory failure, O2 sat on room air 83%, requiring 4 L nasal cannula to maintain O2 sats in the 90s. Patient will also require hospital bed, secondary to moderate to severe fatigue, weakness, pain related to small cell lung CA. Afebrile. Palliative radiation pending. Prior to discharge, family meeting with oncology. Patient will be discharged home today in a stable condition with poor prognosis. - Exam General: Sitting up in chair, NAD. Vitals reviewed, depressed Eyes: PERRL, EOMI, conjunctiva normal HENT: normocephalic, mucus membranes dry Neck: supple, no JVD Lungs: normal respiratory effort, no wheezes, fine bibasilar rales CV: Regular rate and rhythm, no murmur. Peripheral pulses 2+ Abdomen: soft, nontender, positive hepatomegaly. Positive bowel sounds Skin: warm and dry. EXTR: Generalized edema upper and lower extremities. Neuro: A&Ox3, normal mood and affect The impression and plan of care has been dictated as directed. : I performed a history and examination of this patient, discussed the same with the dictator. I agree with the dictator's note ,documented as a scribe. Any additional findings or plans will be noted. Patient Condition at Discharge: Stable Plan - Discharge Summary Discharge Rx Participant: No New Discharge Prescriptions: New Lactulose [Cephulac] 30 gm PO BID #900 ml Escitalopram [Lexapro] 20 mg PO DAILY #30 tab Metoprolol Tartrate [Lopressor] 12.5 mg PO BID #60 tab Simethicone 40 mg/0.6 ml Drops [Mylicon Drops] 80 mg PO QID PRN ml PRN Reason: Abdominal Distention Sennosides [Senokot] 8.6 mg PO BID tab Amoxicillin/Potassium Clav [Augmentin 875-125 Tablet] 1 tab PO Q12HR 1 Days #10 tab HYDROcodone/APAP 5-325MG [Paradox 5-325] 1 each PO Q6HR PRN #12 tab PRN Reason: Pain Dexamethasone [Decadron] 4 mg PO TID #46 tablet Pantoprazole [Protonix] 40 mg PO BID #60 tablet. Continue Acetaminophen Tab [Tylenol] 1,000 mg PO Q4-6H PRN PRN Reason: Fever And/ Or Pain Discharge Medication List Acetaminophen Tab [Tylenol] 1,000 mg PO Q4-6H PRN 03/26/21 [History] Dexamethasone [Decadron] 4 mg PO TID #46 tablet 04/01/21 [Rx] Pantoprazole [Protonix] 40 mg PO BID #60 tablet. 04/01/21 [Rx] Amoxicillin/Potassium Clav [Augmentin 875-125 Tablet] 1 tab PO Q12HR 1 Days #10 tab 04/02/21 [Rx] Escitalopram [Lexapro] 20 mg PO DAILY #30 tab 04/02/21 [Rx] HYDROcodone/APAP 5-325MG [Paradox 5-325] 1 each PO Q6HR PRN #12 tab 04/02/21 [Rx] Lactulose [Cephulac] 30 gm PO BID #900 ml 04/02/21 [Rx] Metoprolol Tartrate [Lopressor] 12.5 mg PO BID #60 tab 04/02/21 [Rx] Sennosides [Senokot] 8.6 mg PO BID tab 04/02/21 [Rx] Simethicone 40 mg/0.6 ml Drops [Mylicon Drops] 80 mg PO QID PRN ml 04/02/21 [Rx] Follow up Appointment(s)/Referral(s): Mg Seaman MD [STAFF PHYSICIAN] - 04/22/21 4:15 pm Franklin Carey MD [STAFF PHYSICIAN] - 1 Week (Office closed at time of discharge - please call office when you are discharged to arrange a follow up appointment. ) [facility] [NON-STAFF] - As Needed (Supplier of hospital bed and home oxygen) [facility] Visiting Nurse, [NON-STAFF] - 04/05/21 Patient Instructions/Handouts: Lung Cancer (DC), Jaundice (GEN) Activity/Diet/Wound Care/Special Instructions: Steroid taper and PPI sent to pt preferred pharmacy from Oncology Case management to arrange for O2. PET scan is 04/17/21 at 445 at [facility]
--- NOTE | 2021-04-03 17:08 | P.PN ---
Progress Note - Text Progress Note Date: 04/03/21 04/03/21 discharge planning in progress for this morning, pending confirmation of delivery medical equipment. The impression and plan of care has been dictated as directed. : I performed a history and examination of this patient, discussed the same with the dictator. I agree with the dictator's note ,documented as a scribe. Any additional findings or plans will be noted.
--- NOTE | 2021-04-03 17:23 | P.PN ---
Subjective Progress Note Date: 04/03/21 Principal diagnosis: Metastatic carcinoma suspect lung primary with mediastinal lymphadenopathy, right hilar mass, SVC syndrome On 03/31/2001 patient seen in follow-up on medical surgical floor. She is up in the chair today, she is weak, but appears to be in no acute distress, she is evidence of oxygen her pulse ox is 91-93%, she had isolated low-grade fevers overnight, she slightly tachycardic with a rate of 112 BPM, she denies any acute respiratory distress, lung sounds are diminished, with some limited crackles at the right base. No hemoptysis, no complaints of chest pain. Still awaiting results of the Lung biopsies. Radiation oncology he has been consulted, medical oncology is following. Vital signs have been stable. Preliminary lung biopsy results consisting of carcinoma. Radiation oncology is planning on palliative external beam radiation therapy mediastinum and right lung for SVC syndrome. On 04 01 2021 patient seen in follow-up on medical surgical floor, patient is status post bronchoscopy with biopsies of the right upper lobe and kill tumor, needle aspirate biopsy of the right upper lobe and needle aspirate of the anterior mediastinal mass. Pathology results are still pending at this time. She denies any specific complaints, she is sitting up in the chair, appears to be in no acute distress, she states her breathing is comfortable, she is on 5 L of oxygen with pulse ox of 95%, she's been afebrile, hemodynamically she is been stable, no complaints of hemoptysis, no compressive chest discomfort, she still has generalized edema involving her upper and lower extremities and some truncal edema, overall not worsening. Patient was seen in consultation by radiation oncology, was plan on starting palliative radiation to the mediastinum and right lung for SVC syndrome. Acute events overnight, today's labs are pending, On 04/02/2010 were patient seen in follow-up on medical surgical floor. She has just returned from getting her MRI of the liver done. She is quite weak, she is unable to transfer herself over from the stretcher to the bed. She is requiring extensive assistance. She still requiring 4 L of oxygen pulse ox is 95%, denies worsening dyspnea other than with exertion. No cough, no wheezing, room air pulse ox was 83%, patient will need home oxygen to go home on, patient has been afebrile, vital signs have been stable. No acute events overnight. She remains generally swollen, weak. Today's labs have been reviewed, her sodium is 137, potassium is 3.6, chloride is 104, BUN is 38, creatinine 0.79. We discussed case with medical oncology, and radiation will be started first, and chemotherapy will be started in 1-2 weeks after discharge home. Patient is supposed to go home today, follow-up with medical oncology. The patient is seen today 04/03/2021 in follow-up on the regular medical floor. She is awake and alert in no acute distress. She is currently maintaining O2 saturations in the 90s on 4 L/m per nasal cannula. Afebrile. Slightly tachycardic. MRI of the liver revealed evidence of metastatic disease. Numerous of hepatic lesions to count throughout the liver. Bone scan revealed no evidence of osseous lesion or metastatic disease. She is receiving palliative radiation for SVC syndrome. The plan is to start chemotherapy. Oncology is on the case. Objective - Vital Signs Vital signs: Vital Signs Temp 97.7 F 04/03/21 16:16 Pulse 117 H 04/03/21 16:16 Resp 18 04/03/21 16:16 BP 134/80 04/03/21 16:16 Pulse Ox 91 L 04/03/21 16:16 Intake & Output 04/02/21 04/03/21 04/03/21 18:59 06:59 18:59 Intake Total 100 Balance 100 Weight 81.193 kg Intake: Intake, IV Titration 100 Amount Piperacillin-Tazobactam 3 100 .375 gm In Sodium Chloride 0.9% 100 ml @ 25 mls/hr IVPB Q8H [facility] Rx#: [id number] Other: Voiding Method Bedside Commode Bedside Commode - Exam GENERAL EXAM: Alert, 55-year-old female patient on 4 L of oxygen and the pulse ox of 91%, comfortable in no apparent distress. HEAD: Normocephalic/atraumatic. EYES: Normal reaction of pupils, equal size. Conjunctiva pink, sclera white. NOSE: Clear with pink turbinates. THROAT: No erythema or exudates. NECK: No masses, no JVD, no thyroid enlargement, no adenopathy. CHEST: No chest wall deformity. Symmetrical expansion. LUNGS: Equal air entry with diminished breath sounds with some limited crackles in the lung bases CVS: Regular rate and rhythm, normal S1 and S2, no gallops, no murmurs, no rubs ABDOMEN: Soft, nontender. No hepatosplenomegaly, normal bowel sounds, no guarding or rigidity. EXTREMITIES: No clubbing, mild generalized edema, no cyanosis, 2+ pulses and upper and lower extremities. MUSCULOSKELETAL: Muscle strength and tone normal. SPINE: No scoliosis or deformity SKIN: No rashes CENTRAL NERVOUS SYSTEM: Alert and oriented -3. No focal deficits, tone is normal in all 4 extremities. PSYCHIATRIC: Alert and oriented -3. Appropriate affect. Intact judgment and insight. - Labs CBC & Chem 7: 04/03/21 10:39 04/03/21 10:39 Labs: Abnormal Lab Results - Last 24 Hours (Table) 04/03/21 04/03/21 Range/Units 10:39 10:39 WBC 20.4 H (3.8-10.6) k/uL Plt Count 140 L (150-450) k/uL Neutrophils # 18.7 H (1.3-7.7) k/uL Lymphocytes # 0.6 L (1.0-4.8) k/uL BUN 36 H (7-17) mg/dL Glucose 112 H (74-99) mg/dL Total Bilirubin 5.4 H (0.2-1.3) mg/dL AST 258 H (14-36) U/L ALT 124 H (4-34) U/L Alkaline Phosphatase 552 H (38-126) U/L Total Protein 5.6 L (6.3-8.2) g/dL Albumin 3.2 L (3.5-5.0) g/dL Assessment and Plan Assessment: 1 metastatic small cell carcinoma of the lung. The patient has chronic elevation of mediastinal lymph node/mass causing mass effect and encasing of the hilar structures in addition to possibility of an early SVC syndrome. The patient also has heterogeneous liver with hepatomegaly and abnormal LFTs consistent with hepatic metastases. Patient also has some bilateral upper lobe groundglass infiltrates with an elevated pro-calcitonin level. the patient also has bilateral pleural effusions. Patient is status post bronchoscopy with biopsies on 03/30/2021, positive for small cell lung cancer 2 massive hepatomegaly with abnormal LFTs with an obstructive pattern and elevation of the alkaline phosphatase, positive for metastasis. Consider alcoholic liver disease. 3 acute hypoxic respiratory failure, currently on 4 L by nasal cannula. 4 ascites and supplement interstitial edema 5 history of alcohol consumption in moderation according to her although the patient seems to be taken around 6 beers every 2-3 days or 3 times a week 6 smoker 7 extremely exhaustion and fatigue 8 leukocytosis 9 jaundice with an abnormal LFTs with elevated AST and AST and obstructive hepatic pattern. 10 sinus tachycardia, probably related to her underlying malignancy. 11 possible early SVC syndrome, patient is going to start palliative external beam radiation Mignon: The patient was seen and evaluated by Dr. Almeida in Plan is to start chemotherapy in the form of carboplatin/etoposide Continued on Decadron Remains on Zosyn Titrate the FiO2 as tolerated We will continue to follow I, the cosigning physician, performed a history & physical examination of the patient. Lungs sounds crackles in the bilateral posterior bases. Maintaining good O2 saturations in the 90s on 4 L/m per nasal cannula. I discussed the assessment and plan of care with my nurse practitioner, Jeannie Henriquez. I attest to the above note as dictated by her.
[2021-04-03] MEDS: SODIUM CHLORIDE 0.9% 1,000 ML IV SCH (19:15)
[2021-04-03] MEDS: ONDANSETRON 16 MG in SODIUM CHLORIDE 0.9% 50 ML IVPB SCH (20:05)
[2021-04-03] MEDS: DEXAMETHASONE SOD PHOSPHATE 10 MG/ML 1 ML VIAL IV SCH (20:05)
[2021-04-03] MEDS: FAMOTIDINE 20 MG/2 ML VIAL IVP SCH (20:05)
[2021-04-03] MEDS ORDERED: LORazepam 2 MG/ML INJ IV PRN (20:22)
[2021-04-03] MEDS ORDERED: ONDANSETRON 4 MG/2 ML VIAL IVP PRN (20:24)
--- NOTE | 2021-04-03 21:21 | P.PN ---
Subjective Progress Note Date: 04/03/21 Principal diagnosis: Lung Cancer Patient is still lethargic and fatiqued. Poor appetite, small bowel movement this am per . She has been refusing lactulose (re-education on goal of lactulose to assist in decreasing overall hepatic encephalopathy). AST/ALT remain elevated and same over the past few days, Total bili has mildly increased today therefore will recheck Coags in am. She has not been moving or eating very much, VTE Prphylaxis added. Long discussion today with family and patient. Discussed with primary and Pulmonology team as well. Ideally initiation of chemotherapy would be as outpatient, from radiation therapy, however with her impending SVC s yndrome, rapid progressing malignancy, control of disease is needed. Systemic therapy with chemotherapy will begin tonight. The benefits versus the risk were discussed in great detail. The overall goal of treatment to control disease palliatively has been discussed and family ( and daughter), sister in law Nathaly were present and able to ask all questions. They understand all risk of chemotherapy in this critical state including the possibility of . The benefit of initiation does outweigh overall risk. We will continue to monitor labs daily on chemotherapy, incorporate daily nut ritional, performance, and preventative measures to meet our overall goals. Expectations of the weekend course have been given and all questions answered and understanding was obtained evidenced by appropriate questions and verbal confirmation. Telemetry monitoring for 72 hours with chemotherapy. Objective - Vital Signs Vital signs: Vital Signs Temp 98.8 F 04/03/21 08:00 Pulse 117 H 04/03/21 08:00 Resp 20 04/03/21 08:00 BP 151/74 04/03/21 08:00 Pulse Ox 91 L 04/03/21 08:00 Intake & Output 04/02/21 04/03/21 04/03/21 18:59 06:59 18:59 Intake Total 100 Balance 100 Weight 81.193 kg Intake: Intake, IV Titration 100 Amount Piperacillin-Tazobactam 3 100 .375 gm In Sodium Chloride 0.9% 100 ml @ 25 mls/hr IVPB Q8H [facility] OF [facility] Rx#: [id number] Other: Voiding Method Bedside Commode - Exam - Constitutional General appearance: cooperative, no acute distress - EENT Eyes: EOMI, PERRLA ENT: normal oropharynx - Neck Increased edema over bilateral arms, Right Breast (no palpable breast masses) Neck: lymphadenopathy - Respiratory Respiratory: bilateral: diminished (throughout) - Cardiovascular Heart rate: 122 Rhythm: regularly irregular leg Peripheral Edema: right: 1+, left: Trace - Gastrointestinal General gastrointestinal: hepatomegaly - Integumentary Integumentary: pale - Neurologic Neurologic: CNII-XII intact - Musculoskeletal Musculoskeletal: generalized weakness, right sided weakness - Psychiatric Psychiatric: A&O x's 3, appropriate affect, intact judgment & insight - Labs CBC & Chem 7: 04/03/21 10:39 04/03/21 10:39 Assessment and Plan (1) Lung mass Current Visit: Yes Status: Acute Priority: High Code(s): R91.8 - OTHER NONSPECIFIC ABNORMAL FINDING OF LUNG FIELD SNOMED Code(s): 182224725 (2) SVC (superior vena cava obstruction) Current Visit: Yes Status: Acute Priority: High Code(s): I87.1 - COMPRESSION OF VEIN SNOMED Code(s): 371215431 (3) Elevated liver function tests Current Visit: Yes Status: Acute Priority: High Code(s): R79.89 - OTHER SPECIFIED ABNORMAL FINDINGS OF BLOOD CHEMISTRY SNOMED Code(s): 572201100 (4) Hepatomegaly Current Visit: Yes Status: Acute Priority: High Code(s): R16.0 - HEPATOMEGALY, NOT ELSEWHERE CLASSIFIED SNOMED Code(s): 14714625 (5) Edema of both upper extremities Current Visit: Yes Status: Acute Code(s): R60.0 - LOCALIZED EDEMA SNOMED Code(s): 484070792 (6) Edema of breast Current Visit: Yes Status: Acute Code(s): N64.89 - OTHER SPECIFIED DISORDERS OF BREAST SNOMED Code(s): 065416488 Plan: Assessment and Plan: Extensive Stage Small Cell Lung Cancer - - Initial presentation with Multiple areas in lung concerning for malignancy - Encasement of the SVC potentially resulting in degree of SVC evidenced with BUE swelling and unilateral right breast edema. Impending SVC - - Continue on Dexamethasone and PPI - Massive Hepatomegaly, abnormal LFTs, Increasing Bilirubin - Palliative External Beam Radiation Initiated - Overall goal of treatment is control of disease and palliation - Carbo/SAMPLE COLOR MAKER 16 chemotherapy to begin today 04/03/21 - Daily Labs Acute Hypoxic Respiratory Failure: - Pulmonology following Debility and Myopathy secondary to Critical Illness Poor PO intake: - Clerk Of Court Consulted and counseling provided Hold discharge and initiate systemic therapy as patient has rapidly growing malignancy Physician Attest: I have completed the full history and physical and agree with above dictation. Dictated as a scribe Patient is still lethargic and fatiqued. Poor appetite, small bowel movement this am per . She has been refusing lactulose (re-education on goal of lactulose to assist in decreasing overall hepatic encephalopathy). AST/ALT remain elevated and same over the past few days, Total bili has mildly increased today therefore will recheck Coags in am. She has not been moving or eating very much, VTE Prphylaxis added. Long discussion today with family and patient. Discussed with primary and Pulmonology team as well. Ideally initiation of chemotherapy would be as outpatient, from radiation therapy, however with her impending SVC syndrome, rapid progressing malignancy, control of disease is needed. Systemic therapy with chemotherapy will begin tonight. The benefits versus the risk were discussed in great detail. The overall goal of treatment to control disease p alliatively has been discussed and family ( and daughter), sister in law Nathaly were present and able to ask all questions. They understand all risk of chemotherapy in this critical state including the possibility of . The benefit of initiation does outweigh overall risk. We will continue to monitor labs daily on chemotherapy, incorporate daily nutritional, performance, and preventative measures to meet our overall goals. Expectations of the weekend course have been given and all questions answered and understanding was obtained evidenced by appropriate questions and verbal confirmation. Telemetry monitoring for 72 hours with chemotherapy. Time with Patient: Greater than 30
[2021-04-03] MEDS: SALT AND SODA MOUTHWASH 1,000 ML PO SCH (22:37)
[2021-04-03] MEDS: OLANZapine 5 MG TAB PO SCH (22:37)
[2021-04-03] MEDS: ETOPOSIDE 190 MG in SODIUM CHLORIDE 0.9% 500 ML 500 ML IV SCH (22:43)
[2021-04-03] MEDS ORDERED: CARBOplatin 500 MG in SODIUM CHLORIDE 0.9% 250 ML IV ONE (23:00)
[2021-04-04] MEDS: dexAMETHasone 4 MG TAB PO SCH ×3 (00:18→17:05)
[2021-04-04] MEDS: PIPERACILLIN-TAZOBACTAM 3.375 GM in SODIUM CHLORIDE 0.9% 100 ML IVPB SCH ×2 (00:18→09:26)
[2021-04-04] MEDS ORDERED: LORazepam 2 MG/ML INJ IV PRN (00:34)
[2021-04-04 03:36] LABS: Basophils # (A) 0.1 k/uL (0-0.2); Basophils % (A) 0 %; Eosinophils # (A) 0.1 k/uL (0-0.7); Eosinophils % (A) 0 %; HGB 13.6 gm/dL (11.4-16.0); Lymphocytes # (A) 0.8 k/uL (1.0-4.8); Lymphocytes % (A) 4 %; MCH 33.1 pg (25.0-35.0); MCHC 33.3 g/dL (31.0-37.0); MCV 99.4 fL (80.0-100.0); Macrocytosis Slight; Mean Platelet Volume 8.8; Monocytes # (A) 0.7 k/uL (0-1.0); Monocytes % (A) 4 %; Neutrophils # (A) 19.1 k/uL (1.3-7.7); Neutrophils % (A) 91 %; Platelet Count 100 k/uL (150-450); RBC 4.12 m/uL (3.80-5.40); WBC 20.9 k/uL (3.8-10.6)
[2021-04-04 03:48] LABS: ALT 132 U/L (4-34); AST 310 U/L (14-36); African American GFR (CKD) >90 (>60 ml/min/1.73 sqM); Albumin 3.5 g/dL (3.5-5.0); Albumin/Globulin Ratio 1.4; Alkaline Phosphatase 588 U/L (38-126); Anion Gap 8 mmol/L; Blood Urea Nitrogen 36 mg/dL (7-17); Calcium 9.3 mg/dL (8.4-10.2); Carbon Dioxide 27 mmol/L (22-30); Chloride 108 mmol/L (98-107); Globulin 2.5 g/dL; Glucose 118 mg/dL (74-99); Magnesium 2.3 mg/dL (1.6-2.3); Non-African American GFR(CKD) >90 (>60 ml/min/1.73 sqM); Phosphorus 3.8 mg/dL (2.5-4.5); Sodium 143 mmol/L (137-145); Total Bilirubin 6.5 mg/dL (0.2-1.3); Uric Acid 6.8 mg/dL (3.7-7.4)
[2021-04-04 03:51] LABS: INR 1.7 (<1.2); Partial Thromboplastin Time 20.1 sec (22.0-30.0); Prothrombin Time 16.6 sec (9.0-12.0)
[2021-04-04 03:53] LABS: ABG Base Excess 2.2 mmol/L; ABG HCO3 28 mmol/L (21-25); ABG Oxygen Saturation 95.6 % (94-97); ABG PCO2 52 mmHg (35-45); ABG PH 7.34 (7.35-7.45); ABG PO2 84 mmHg (83-108); ABG TCO2 30 mmol/L (19-24); Allen Test Performed? Yes
[2021-04-04 03:53] LABS: Glucose,Whole Blood 135 mg/dL (75-99)
--- NOTE | 2021-04-04 04:20 | XR ---
EXAMINATION TYPE: XR chest 1V DATE OF EXAM: 04/04/2021 COMPARISON: NONE HISTORY: Short of breath TECHNIQUE: Single view FINDINGS: There is patchy bilateral pulmonary airspace infiltrates in the mid and lower lung willis. There is pleural thickening on the right lateral chest wall. Heart size is fairly normal. There is no definite pleural effusion at the lung bases. There are chest leads. IMPRESSION: Increasing pulmonary airspace infiltrates and pleural thickening compared to old exam. Th is is consistent with worsening RDS. Congestive heart failure not entirely excluded. I think that hea rt failure is unlikely in view of the normal heart size.
[2021-04-04 04:27] LABS: LDH 4352 U/L (313-618)
[2021-04-04] MEDS ORDERED: FUROSEMIDE 10 MG/ML 4 ML VIAL IV STA (04:47)
--- NOTE | 2021-04-04 05:06 | P.EN ---
A team note Activated for worsening mental status and agitation. Reviewed the chart and discussed the case with RN. The patient is admitted for palliative chemotherapy for small cell lung cancer stage IV. She was noted to have worsening hypoxia for which she was started on high flow nasal cannula. At the bedside, the patient's SpO2 was 96%, heart rate 138, BP 132/96, and temp 98.1. The patient opened eyes to stimuli but was not answering any questions and appeared to be uncomfortable. General: Ill-appearing female, in some respiratory distress, appears older than stated age HEENT: NC/AT, anicteric sclerae, moist conjunctiva, no lid-lag, PERRLA Cardiovascular: S1/S2 wnl, tachycardic, no murmurs, rubs, or gallops Lungs: Diffuse coarse breath sounds throughout, somewhat increased respiratory effort, no abdominal breathing or sternal retractions noted Abdominal: Soft, non-tender, non-distended, no guarding, rebound, or rigidity Skin: Warm, dry Extremities: No edema or contractures Psychiatric: Opening eyes to stimuli Neuro: Moving all extremities, not following commands or answering questions Assessment/plan Hypoxic respiratory failure in setting of stage IV lung CA -Continue with high flow nasal cannula -ABG and chest x-ray ordered -Consider BiPAP if hypercapnia or worsening hypoxia noted -The RN will discuss case with family to address CODE STATUS -The patient has overall grave prognosis in setting of incurable advanced malignancy Altered mental status -Likely combination of hepatic encephalopathy and toxic metabolic encephalopathy -Continue with above management for now -Repeat ammonia levels ordered Primary team and family notified by the RN Total times spent providing critical care for this patient: Greater than 30 minutes
[2021-04-04] MEDS ORDERED: LORazepam 2 MG/ML INJ IV STA (05:33)
[2021-04-04] MEDS ORDERED: methylPREDNISolone SOD SUCCI 40 MG/ML 1 ML VIAL IVP STA (05:33)
[2021-04-04 09:07] LABS: ALT 128 U/L (4-34); AST 281 U/L (14-36); African American GFR (CKD) >90 (>60 ml/min/1.73 sqM); Albumin 3.2 g/dL (3.5-5.0); Albumin/Globulin Ratio 1.3; Alkaline Phosphatase 522 U/L (38-126); Anion Gap 10 mmol/L; Blood Urea Nitrogen 40 mg/dL (7-17); Calcium 9.2 mg/dL (8.4-10.2); Carbon Dioxide 24 mmol/L (22-30); Chloride 109 mmol/L (98-107); Globulin 2.4 g/dL; Glucose 134 mg/dL (74-99); Non-African American GFR(CKD) 82 (>60 ml/min/1.73 sqM); Potassium 4.2 mmol/L (3.5-5.1); Sodium 143 mmol/L (137-145); Total Bilirubin 5.8 mg/dL (0.2-1.3); Total Protein 5.6 g/dL (6.3-8.2)
[2021-04-04] MEDS: PANTOPRAZOLE 40 MG TABLET PO SCH (09:16)
[2021-04-04] MEDS: ESCITALOPRAM 20 MG TAB PO SCH (09:16)
[2021-04-04] MEDS: LACTULOSE 20 GM/30 ML CUP PO SCH ×2 (09:16→19:35)
[2021-04-04] MEDS: METOPROLOL TARTRATE 12.5 MG TAB PO SCH ×2 (09:16→19:35)
[2021-04-04] MEDS: SALT AND SODA MOUTHWASH 1,000 ML PO SCH ×4 (09:17→19:36)
[2021-04-04] MEDS: SENNOSIDES 8.6 MG TAB PO SCH ×2 (09:17→19:35)
[2021-04-04] MEDS: NYSTATIN 100,000 UNIT/ML SUSP 500,000 UNIT/5 ML CUP PO SCH ×4 (09:17→19:36)
[2021-04-04 09:21] LABS: Basophils # (A) 0.1 k/uL (0-0.2); Basophils % (A) 0 %; Eosinophils # (A) 0.1 k/uL (0-0.7); Eosinophils % (A) 0 %; HCT 40.6 % (34.0-46.0); HGB 13.4 gm/dL (11.4-16.0); Lymphocytes # (A) 0.5 k/uL (1.0-4.8); Lymphocytes % (A) 2 %; MCH 32.7 pg (25.0-35.0); MCV 98.8 fL (80.0-100.0); Macrocytosis Slight; Mean Platelet Volume 8.8; Monocytes # (A) 0.9 k/uL (0-1.0); Monocytes % (A) 4 %; Neutrophils # (A) 20.3 k/uL (1.3-7.7); Neutrophils % (A) 92 %; Platelet Count 150 k/uL (150-450); RBC 4.11 m/uL (3.80-5.40); RDW 15.1 % (11.5-15.5); WBC 22.1 k/uL (3.8-10.6)
[2021-04-04] MEDS: ENOXAPARIN 40 MG/0.4 ML SYRINGE SQ SCH (09:27)
[2021-04-04] MEDS: LORazepam 2 MG/ML INJ IV PRN ×3 (09:29→20:07)
[2021-04-04] MEDS ORDERED: PHYTONADIONE 10 MG in SODIUM CHLORIDE 0.9% 50 ML IVPB STA (09:32)
[2021-04-04] MEDS: MORPHINE SULFATE 4 MG/ML SYRINGE IVP PRN ×3 (10:51→22:06)
[2021-04-04] MEDS ORDERED: LACTULOSE 200 GM/300 ML (FROM 1/2 GAL JUG) RECTAL ONE (12:32)
--- NOTE | 2021-04-04 12:55 | P.PN ---
Subjective Progress Note Date: 04/04/21 Principal diagnosis: Small cell lung cancer, hepatomegaly and elevated liver enzymes. In follow-up today patient is unresponsive, visibly agitated, family at bedside. Objective - Vital Signs Vital signs: Vital Signs Temp 98.6 F 04/04/21 04:00 Pulse 135 H 04/04/21 11:19 Resp 16 04/04/21 11:19 BP 102/70 04/04/21 11:19 Pulse Ox 93 L 04/04/21 11:19 Intake & Output 04/03/21 04/04/21 04/04/21 18:59 06:59 18:59 Intake Total 50 Output Total 1400 Balance -1350 Intake: Oral 50 Output: Urine 1200 Uretheral (Weinstein) 600 Post Void Residual 200 Other: Voiding Method Bedside Commode Bedside Commode Indwelling Catheter Diaper Incontinent # Voids 1 1 - Constitutional General appearance: Present: average body habitus, disheveled - Respiratory Respiratory: right: diminished, rales - Cardiovascular Heart sounds: normal: S1, S2 Abnormal Heart Sounds: Present: systolic murmur - Peripheral edema leg Peripheral Edema: bilateral: Trace - Gastrointestinal General gastrointestinal: Present: normal bowel sounds, soft - Psychiatric Psychiatric: Absent: A&O x's 3, appropriate affect, intact judgment & insight - Labs CBC & Chem 7: 04/04/21 08:07 04/04/21 08:07 Labs: Abnormal Lab Results - Last 24 Hours (Table) 04/04/21 04/04/21 04/04/21 Range/Units 03:13 03:13 03:13 WBC 20.9 H (3.8-10.6) k/uL Plt Count 100 L (150-450) k/uL Neutrophils # 19.1 H (1.3-7.7) k/uL Lymphocytes # 0.8 L (1.0-4.8) k/uL PT 16.6 H (9.0-12.0) sec INR 1.7 H (<1.2) APTT 20.1 L (22.0-30.0) sec ABG pH (7.35-7.45) ABG pCO2 (35-45) mmHg ABG HCO3 (21-25) mmol/L ABG Total CO2 (19-24) mmol/L Chloride 108 H (98-107) mmol/L BUN 36 H (7-17) mg/dL Glucose 118 H (74-99) mg/dL POC Glucose (mg/dL) (75-99) mg/dL Total Bilirubin 6.5 H (0.2-1.3) mg/dL AST 310 H (14-36) U/L ALT 132 H (4-34) U/L Alkaline Phosphatase 588 H (38-126) U/L Ammonia (<30) umol/L Lactate Dehydrogenase 4352 H (313-618) U/L Total Protein 6.0 L (6.3-8.2) g/dL Albumin (3.5-5.0) g/dL 04/04/21 04/04/21 04/04/21 Range/Units 03:41 03:48 03:51 WBC (3.8-10.6) k/uL Plt Count (150-450) k/uL Neutrophils # (1.3-7.7) k/uL Lymphocytes # (1.0-4.8) k/uL PT (9.0-12.0) sec INR (<1.2) APTT (22.0-30.0) sec ABG pH 7.34 L (7.35-7.45) ABG pCO2 52 H (35-45) mmHg ABG HCO3 28 H (21-25) mmol/L ABG Total CO2 30 H (19-24) mmol/L Chloride (98-107) mmol/L BUN (7-17) mg/dL Glucose (74-99) mg/dL POC Glucose (mg/dL) 135 H (75-99) mg/dL Total Bilirubin (0.2-1.3) mg/dL AST (14-36) U/L ALT (4-34) U/L Alkaline Phosphatase (38-126) U/L Ammonia 68 H (<30) umol/L Lactate Dehydrogenase (313-618) U/L Total Protein (6.3-8.2) g/dL Albumin (3.5-5.0) g/dL 04/04/21 04/04/21 Range/Units 08:07 08:07 WBC 22.1 H (3.8-10.6) k/uL Plt Count (150-450) k/uL Neutrophils # 20.3 H (1.3-7.7) k/uL Lymphocytes # 0.5 L (1.0-4.8) k/uL PT (9.0-12.0) sec INR (<1.2) APTT (22.0-30.0) sec ABG pH (7.35-7.45) ABG pCO2 (35-45) mmHg ABG HCO3 (21-25) mmol/L ABG Total CO2 (19-24) mmol/L Chloride 109 H (98-107) mmol/L BUN 40 H (7-17) mg/dL Glucose 134 H (74-99) mg/dL POC Glucose (mg/dL) (75-99) mg/dL Total Bilirubin 5.8 H (0.2-1.3) mg/dL AST 281 H (14-36) U/L ALT 128 H (4-34) U/L Alkaline Phosphatase 522 H (38-126) U/L Ammonia (<30) umol/L Lactate Dehydrogenase (313-618) U/L Total Protein 5.6 L (6.3-8.2) g/dL Albumin 3.2 L (3.5-5.0) g/dL Assessment and Plan (1) Small cell lung cancer Narrative/Plan: Transbronchial bx done, pathology returned, small cell lung cancer. 1st carbo/INSPECTING SUPERVISOR was given 04/03/21. CT of the abdomen and pelvis discussed suspicious findings in the liver, nothing definitive. MRI of the liver ordered, results after seeing pt and family-metastatic disease. Nuclear medicine bone scan-no metastatic disease in the bones. MRI of the brain was negative for malignancy. PET scan is scheduled for 04/17/21. Palliative radiation for SVC syndrome symptoms is held. Continue steroids. Steroid taper and PPI prescriptions sent the patient preferred pharmacy Pt had episode of hypoxia, tachycardia, around 4am. Lasix given. When seen pt is still unresponsive but, moving around in bed/agitated. Current Visit: Yes Status: Acute Priority: High Code(s): C34.90 - MALIGNANT NEOPLASM OF UNSP PART OF UNSP BRONCHUS OR LUNG SNOMED Code(s): 248130881 (2) Elevated liver function tests Narrative/Plan: Stable at this time. Likely from disease of malignancy and possibly history of liver damage Current Visit: Yes Status: Acute Priority: High Code(s): R79.89 - OTHER SPECIFIED ABNORMAL FINDINGS OF BLOOD CHEMISTRY SNOMED Code(s): 892816341 (3) Hepatomegaly Narrative/Plan: MRI of the liver is consistent with metastatic disease. Some of the scarring and nodules may be from liver damage from history of EtOH. patient will be treated for malignancy and follow-up imaging of the liver will be compared Current Visit: Yes Status: Acute Priority: High Code(s): R16.0 - HEPATOMEGALY, NOT ELSEWHERE CLASSIFIED SNOMED Code(s): 51440344 (4) SVC (superior vena cava obstruction) Narrative/Plan: No DVT in the upper extremities. Patient converted to oral steroids. Cont for now. Will taper in near future. Few doses of palliative Radiation. Had 1st dose of carbo/INSPECTING SUPERVISOR Current Visit: Yes Status: Acute Priority: High Code(s): I87.1 - COMPRESSION OF VEIN SNOMED Code(s): 349785560 Plan: Spoke with family today about pt condition, acute changes and event. Work up in progress to evaluate heart, pending CTA to rule out acute PE. Ammonia level at 68. Discussed with Pharmacy and Nursing. Pt is unable to swallow at this time so, lactulose will be given as an enema to see if ammonia levels can be brought down to see if that helps pt LOC. INR elevated, pt on DVT prophylaxis with lovenox, reverse INR with vit K. Will complete testing and treatments and see how pt is doing in AM. Hold day 2 of chemo for now
--- NOTE | 2021-04-04 13:06 | P.PN ---
Subjective Progress Note Date: 04/04/21 Principal diagnosis: Metastatic carcinoma suspect lung primary with mediastinal lymphadenopathy, right hilar mass, SVC syndrome On 03/31/2001 patient seen in follow-up on medical surgical floor. She is up in the chair today, she is weak, but appears to be in no acute distress, she is evidence of oxygen her pulse ox is 91-93%, she had isolated low-grade fevers overnight, she slightly tachycardic with a rate of 112 BPM, she denies any acute respiratory distress, lung sounds are diminished, with some limited crackles at the right base. No hemoptysis, no complaints of chest pain. Still awaiting results of the Lung biopsies. Radiation oncology he has been consulted, medical oncology is following. Vital signs have been stable. Preliminary lung biopsy results consisting of carcinoma. Radiation oncology is planning on palliative external beam radiation therapy mediastinum and right lung for SVC syndrome. On 04 01 2021 patient seen in follow-up on medical surgical floor, patient is status post bronchoscopy with biopsies of the right upper lobe and kill tumor, needle aspirate biopsy of the right upper lobe and needle aspirate of the anterior mediastinal mass. Pathology results are still pending at this time. She denies any specific complaints, she is sitting up in the chair, appears to be in no acute distress, she states her breathing is comfortable, she is on 5 L of oxygen with pulse ox of 95%, she's been afebrile, hemodynamically she is been stable, no complaints of hemoptysis, no compressive chest discomfort, she still has generalized edema involving her upper and lower extremities and some truncal edema, overall not worsening. Patient was seen in consultation by radiation oncology, was plan on starting palliative radiation to the mediastinum and right lung for SVC syndrome. Acute events overnight, today's labs are pending, On 04/02/2010 were patient seen in follow-up on medical surgical floor. She has just returned from getting her MRI of the liver done. She is quite weak, she is unable to transfer herself over from the stretcher to the bed. She is requiring extensive assistance. She still requiring 4 L of oxygen pulse ox is 95%, denies worsening dyspnea other than with exertion. No cough, no wheezing, room air pulse ox was 83%, patient will need home oxygen to go home on, patient has been afebrile, vital signs have been stable. No acute events overnight. She remains generally swollen, weak. Today's labs have been reviewed, her sodium is 137, potassium is 3.6, chloride is 104, BUN is 38, creatinine 0.79. We discussed case with medical oncology, and radiation will be started first, and chemotherapy will be started in 1-2 weeks after discharge home. Patient is supposed to go home today, follow-up with medical oncology. The patient is seen today 04/03/2021 in follow-up on the regular medical floor. She is awake and alert in no acute distress. She is currently maintaining O2 saturations in the 90s on 4 L/m per nasal cannula. Afebrile. Slightly tachycardic. MRI of the liver revealed evidence of metastatic disease. Numerous of hepatic lesions to count throughout the liver. Bone scan revealed no evidence of osseous lesion or metastatic disease. She is receiving palliative radiation for SVC syndrome. The plan is to start chemotherapy. Oncology is on the case. The patient is seen today 04/04/2021 in follow-up on the oncology unit. She is currently resting in bed. An A team was called on her approximately 4:00 this morning for worsening mental status and agitation. [place] to be secondary to h epatic encephalopathy and toxic metabolic encephalopathy. Ammonia level 68. ABG revealed a pO2 of 84, pCO2 52 and a pH is 7.34 on 80% FiO2. She is requiring 12 L high flow nasal cannula to maintain O2 saturation in the 90s. She is tachycardic. X-ray reveals increasing airspace infiltrates and pleural thickening. Consistent with worsening ARDS. Heart failure not totally excluded. White count 22. Hemoglobin 13.4. Platelets 150. Sodium 143. Potassium 4.2. Creatinine 0.81. She remains on Decadron, Lovenox, antibiotics in the form of cefepime. She is receiving etoposide and carboplatin. Objective - Vital Signs Vital signs: Vital Signs Temp 98.6 F 04/04/21 04:00 Pulse 135 H 04/04/21 11:19 Resp 16 04/04/21 11:19 BP 102/70 04/04/21 11:19 Pulse Ox 93 L 04/04/21 11:19 Intake & Output 04/03/21 04/04/21 04/04/21 18:59 06:59 18:59 Intake Total 50 Output Total 1400 Balance -1350 Intake: Oral 50 Output: Urine 1200 Uretheral (Weinstein) 600 Post Void Residual 200 Other: Voiding Method Bedside Commode Bedside Commode Indwelling Catheter Diaper Incontinent # Voids 1 1 - Exam GENERAL EXAM: Lethargic 55-year-old female patient on 12 L high flow nasal cannula with O2 saturation at 93%, comfortable in no apparent distress. HEAD: Normocephalic/atraumatic. EYES: Normal reaction of pupils, equal size. Conjunctiva pink, sclera white. NOSE: Clear with pink turbinates. THROAT: No erythema or exudates. NECK: No masses, no JVD, no thyroid enlargement, no adenopathy. CHEST: No chest wall deformity. Symmetrical expansion. LUNGS: Equal air entry with diminished breath sounds with some limited crackles in the lung bases CVS: Regular rate and rhythm, normal S1 and S2, tachycardic ABDOMEN: Soft, nontender. No hepatosplenomegaly, normal bowel sounds, no guarding or rigidity. EXTREMITIES: No clubbing, mild generalized edema, no cyanosis, 2+ pulses and upper and lower extremities. MUSCULOSKELETAL: Muscle strength and tone normal. SPINE: No scoliosis or deformity SKIN: No rashes CENTRAL NERVOUS SYSTEM: No focal deficits, tone is normal in all 4 extremities. PSYCHIATRIC: Lethargic, arousable. - Labs CBC & Chem 7: 04/04/21 08:07 04/04/21 08:07 Labs: Abnormal Lab Results - Last 24 Hours (Table) 04/04/21 04/04/21 04/04/21 Range/Units 03:13 03:13 03:13 WBC 20.9 H (3.8-10.6) k/uL Plt Count 100 L (150-450) k/uL Neutrophils # 19.1 H (1.3-7.7) k/uL Lymphocytes # 0.8 L (1.0-4.8) k/uL PT 16.6 H (9.0-12.0) sec INR 1.7 H (<1.2) APTT 20.1 L (22.0-30.0) sec ABG pH (7.35-7.45) ABG pCO2 (35-45) mmHg ABG HCO3 (21-25) mmol/L ABG Total CO2 (19-24) mmol/L Chloride 108 H (98-107) mmol/L BUN 36 H (7-17) mg/dL Glucose 118 H (74-99) mg/dL POC Glucose (mg/dL) (75-99) mg/dL Total Bilirubin 6.5 H (0.2-1.3) mg/dL AST 310 H (14-36) U/L ALT 132 H (4-34) U/L Alkaline Phosphatase 588 H (38-126) U/L Ammonia (<30) umol/L Lactate Dehydrogenase 4352 H (313-618) U/L Total Protein 6.0 L (6.3-8.2) g/dL Albumin (3.5-5.0) g/dL 04/04/21 04/04/21 04/04/21 Range/Units 03:41 03:48 03:51 WBC (3.8-10.6) k/uL Plt Count (150-450) k/uL Neutrophils # (1.3-7.7) k/uL Lymphocytes # (1.0-4.8) k/uL PT (9.0-12.0) sec INR (<1.2) APTT (22.0-30.0) sec ABG pH 7.34 L (7.35-7.45) ABG pCO2 52 H (35-45) mmHg ABG HCO3 28 H (21-25) mmol/L ABG Total CO2 30 H (19-24) mmol/L Chloride (98-107) mmol/L BUN (7-17) mg/dL Glucose (74-99) mg/dL POC Glucose (mg/dL) 135 H (75-99) mg/dL Total Bilirubin (0.2-1.3) mg/dL AST (14-36) U/L ALT (4-34) U/L Alkaline Phosphatase (38-126) U/L Ammonia 68 H (<30) umol/L Lactate Dehydrogenase (313-618) U/L Total Protein (6.3-8.2) g/dL Albumin (3.5-5.0) g/dL 04/04/21 04/04/21 Range/Units 08:07 08:07 WBC 22.1 H (3.8-10.6) k/uL Plt Count (150-450) k/uL Neutrophils # 20.3 H (1.3-7.7) k/uL Lymphocytes # 0.5 L (1.0-4.8) k/uL PT (9.0-12.0) sec INR (<1.2) APTT (22.0-30.0) sec ABG pH (7.35-7.45) ABG pCO2 (35-45) mmHg ABG HCO3 (21-25) mmol/L ABG Total CO2 (19-24) mmol/L Chloride 109 H (98-107) mmol/L BUN 40 H (7-17) mg/dL Glucose 134 H (74-99) mg/dL POC Glucose (mg/dL) (75-99) mg/dL Total Bilirubin 5.8 H (0.2-1.3) mg/dL AST 281 H (14-36) U/L ALT 128 H (4-34) U/L Alkaline Phosphatase 522 H (38-126) U/L Ammonia (<30) umol/L Lactate Dehydrogenase (313-618) U/L Total Protein 5.6 L (6.3-8.2) g/dL Albumin 3.2 L (3.5-5.0) g/dL Assessment and Plan Assessment: 1 metastatic small cell carcinoma of the lung. The patient has chronic elevation of mediastinal lymph node/mass causing mass effect and encasing of the hilar structures in addition to possibility of an early SVC syndrome. The patient also has heterogeneous liver with hepatomegaly and abnormal LFTs consistent with hepatic metastases. Patient is status post bronchoscopy with biopsies on 03/30/2021, positive for small cell lung cancer. She has been initiated on a top aside and carboplatin. Early this morning the patient became quite altered and agitated with noted hypoxemia and worsening chest x-ray. Currently on 12 L high flow nasal cannula. 2 massive hepatomegaly with abnormal LFTs with an obstructive pattern and elevation of the alkaline phosphatase, positive for metastasis. Consider alcoholic liver disease. 3 acute hypoxic respiratory failure, currently on 12L by nasal cannula. 4 ascites and supplement interstitial edema 5 history of alcohol consumption in moderation according to her although the patient seems to be taken around 6 beers every 2-3 days or 3 times a week 6 smoker 7 extremely exhaustion and fatigue 8 leukocytosis 9 jaundice with an abnormal LFTs with elevated AST and AST and obstructive hepatic pattern. 10 sinus tachycardia, probably related to her underlying malignancy. 11 possible early SVC syndrome, patient is going to start palliative external beam radiation Mignon: The patient was seen and evaluated by Dr. Almeida The patient has altered mental status and increasing hypoxemia Currently on 12 L high flow nasal cannula Initiated on chemotherapy in the form of carboplatin/etoposide Continued on Decadron Titrate the FiO2 as tolerated Overall prognosis remains quite guarded Dr. Almeida spoke with the family at the bedside She is a DO NOT RESUSCITATE/DO NOT INTUBATE CODE STATUS We will continue to follow I, the cosigning physician, performed a history & physical examination of the patient. Lungs sounds crackles in the bilateral posterior bases. Maintaining good O2 saturations in the 90s on 12 L high flow nasal. I discussed the assessment and plan of care with my nurse practitioner, Jeannie Henriquez. I attest to the above note as dictated by her.
--- NOTE | 2021-04-04 17:07 | P.PN ---
Subjective This is a 55 years old female with diagnosis of small bowel lung cancer, metastatic to the liver, associated with mediastinal lymphadenopathy and clearly SVC syndrome. Seen today in the general medical floor, she is encephalopathic with high ammoni a level. She is doing poor, she is obtunded and does not follow command, does not wake up to verbal or tactile stimuli Yesterday they have to call a team for her for hypoxia and received 1 dose of La six, her blood pressure is low normal and she is tachycardic with a heart rate around 135 Is currently on 12 L oxygen via nasal cannula Ammonia level is elevated at 68, she received lactulose rectally, liver enzymes also mildly elevated. She is also septic with leukocytosis with running 2 okay. Calcitonin is elevated at 3.4. The test is negative She is on gentle hydration with normal saline at 50 mL per hour, her Zosyn was stopped today since admission and switched to cefepime. Also on a Protonix 40 mg IV twice daily Several consultants on the case including pulmonary and hematology/oncology team. She got one round of chemotherapy but she did not do well afterwards and her clinical condition deteriorated Her prognosis is extremely poor. The patient is no code. Family at bedside Objective - Vital Signs Vital signs: Vital Signs Temp 98.5 F 04/04/21 12:00 Pulse 71 04/04/21 12:00 Resp 20 04/04/21 12:00 BP 114/63 04/04/21 12:00 Pulse Ox 93 L 04/04/21 12:00 Intake & Output 04/03/21 04/04/21 04/04/21 18:59 06:59 18:59 Intake Total 50 Output Total 1400 920 Balance -1350 -920 Intake: Oral 50 Output: Urine 1200 920 Uretheral (Weinstein) 600 Post Void Residual 200 Other: Voiding Method Bedside Commode Bedside Commode Indwelling Catheter Diaper Incontinent # Voids 1 1 - Exam -GENERAL: The patient is obtunded, unresponsive HEENT: Pupils are round and equally reacting to light. EOMI. No scleral icterus. No conjunctival pallor. Normocephalic, atraumatic. No pharyngeal erythema. No thyromegaly. CARDIOVASCULAR: S1 and S2 present. No murmurs, rubs, or gallops. -PULMONARY: Chest is decreased air entry, shallow breathing. Some crepitation especially on the right side ABDOMEN: Soft, nontender, nondistended, normoactive bowel sounds. No palpable organomegaly. MUSCULOSKELETAL: No joint swelling or deformity. EXTREMITIES: No cyanosis, clubbing, or pedal edema. NEUROLOGICAL: Gross neurological examination did not reveal any focal deficits. SKIN: No rashes. no petechiae. - Labs CBC & Chem 7: 04/04/21 08:07 04/04/21 08:07 Labs: Abnormal Lab Results - Last 24 Hours (Table) 04/04/21 04/04/21 04/04/21 Range/Units 03:13 03:13 03:13 WBC 20.9 H (3.8-10.6) k/uL Plt Count 100 L (150-450) k/uL Neutrophils # 19.1 H (1.3-7.7) k/uL Lymphocytes # 0.8 L (1.0-4.8) k/uL PT 16.6 H (9.0-12.0) sec INR 1.7 H (<1.2) APTT 20.1 L (22.0-30.0) sec ABG pH (7.35-7.45) ABG pCO2 (35-45) mmHg ABG HCO3 (21-25) mmol/L ABG Total CO2 (19-24) mmol/L Chloride 108 H (98-107) mmol/L BUN 36 H (7-17) mg/dL Glucose 118 H (74-99) mg/dL POC Glucose (mg/dL) (75-99) mg/dL Total Bilirubin 6.5 H (0.2-1.3) mg/dL AST 310 H (14-36) U/L ALT 132 H (4-34) U/L Alkaline Phosphatase 588 H (38-126) U/L Ammonia (<30) umol/L Lactate Dehydrogenase 4352 H (313-618) U/L Total Protein 6.0 L (6.3-8.2) g/dL Albumin (3.5-5.0) g/dL 04/04/21 04/04/21 04/04/21 Range/Units 03:41 03:48 03:51 WBC (3.8-10.6) k/uL Plt Count (150-450) k/uL Neutrophils # (1.3-7.7) k/uL Lymphocytes # (1.0-4.8) k/uL PT (9.0-12.0) sec INR (<1.2) APTT (22.0-30.0) sec ABG pH 7.34 L (7.35-7.45) ABG pCO2 52 H (35-45) mmHg ABG HCO3 28 H (21-25) mmol/L ABG Total CO2 30 H (19-24) mmol/L Chloride (98-107) mmol/L BUN (7-17) mg/dL Glucose (74-99) mg/dL POC Glucose (mg/dL) 135 H (75-99) mg/dL Total Bilirubin (0.2-1.3) mg/dL AST (14-36) U/L ALT (4-34) U/L Alkaline Phosphatase (38-126) U/L Ammonia 68 H (<30) umol/L Lactate Dehydrogenase (313-618) U/L Total Protein (6.3-8.2) g/dL Albumin (3.5-5.0) g/dL 04/04/21 04/04/21 Range/Units 08:07 08:07 WBC 22.1 H (3.8-10.6) k/uL Plt Count (150-450) k/uL Neutrophils # 20.3 H (1.3-7.7) k/uL Lymphocytes # 0.5 L (1.0-4.8) k/uL PT (9.0-12.0) sec INR (<1.2) APTT (22.0-30.0) sec ABG pH (7.35-7.45) ABG pCO2 (35-45) mmHg ABG HCO3 (21-25) mmol/L ABG Total CO2 (19-24) mmol/L Chloride 109 H (98-107) mmol/L BUN 40 H (7-17) mg/dL Glucose 134 H (74-99) mg/dL POC Glucose (mg/dL) (75-99) mg/dL Total Bilirubin 5.8 H (0.2-1.3) mg/dL AST 281 H (14-36) U/L ALT 128 H (4-34) U/L Alkaline Phosphatase 522 H (38-126) U/L Ammonia (<30) umol/L Lactate Dehydrogenase (313-618) U/L Total Protein 5.6 L (6.3-8.2) g/dL Albumin 3.2 L (3.5-5.0) g/dL Assessment and Plan Assessment: Metastatic small cell cancer Liver metastasis with elevated ammonia level Acute severe hypoxia Double encephalopathy and hepatic encephalopathy Pulmonary congestion Sepsis possibly secondary to pneumonia with gram-negative bacteria No code Plan: This is a pleasant 55 years old female with lung cancer and metastasis to the liver Continue with oxygen as needed. Continue with cefepime With gentle hydration Protonix IV With lactulose rectally She received vitamin K 1 today Lasix needed Labs and medication were reviewed.. Continue same treatment. Continue with symptomatic treatment. Resume home medication. Monitor lytes and vitals. DVT and GI prophylaxis. Further recommendationsas per clinical course of the tavo ent DVT prophylaxis: Subcutaneous Lovenox GI Prophylaxis: Ppi Prognosis is guarded and extremely poor
[2021-04-04] MEDS: SODIUM CHLORIDE 0.9% 1,000 ML IV SCH (17:44)
[2021-04-04] MEDS: CEFEPIME 2 GM in SODIUM CHLORIDE 0.9% 100 ML IVPB SCH ×2 (17:46→23:37)
[2021-04-04] MEDS: OLANZapine 5 MG TAB PO SCH (19:35)
[2021-04-04] MEDS: PANTOPRAZOLE 40 MG/10 ML VIAL IVP SCH (20:07)
[2021-04-05] MEDS: dexAMETHasone 4 MG TAB PO SCH ×2 (00:32→08:04)
[2021-04-05] MEDS: LORazepam 2 MG/ML INJ IV PRN ×3 (01:17→16:34)
[2021-04-05] MEDS: MORPHINE SULFATE 4 MG/ML SYRINGE IVP PRN ×3 (02:36→11:48)
[2021-04-05 04:55] VITALS: BP 131/84; TEMP 100.4
[2021-04-05] MEDS ORDERED: ACETAMINOPHEN SUPPOSITORY 650 MG SUPP RECTAL PRN (05:40)
[2021-04-05] MEDS ORDERED: SCOPOLAMINE 1.5MG/72HR PATCH TRANSDERM SCH (05:45)
[2021-04-05] MEDS: DEXAMETHASONE SOD PHOSPHATE 10 MG/ML 1 ML VIAL IV SCH (06:46)
[2021-04-05] MEDS: FAMOTIDINE 20 MG/2 ML VIAL IVP SCH (06:47)
[2021-04-05] MEDS: ETOPOSIDE 190 MG in SODIUM CHLORIDE 0.9% 500 ML 500 ML IV SCH (06:47)
[2021-04-05] MEDS: ONDANSETRON 16 MG in SODIUM CHLORIDE 0.9% 50 ML IVPB SCH (06:47)
[2021-04-05 07:05] LABS: ALT 180 U/L (4-34); AST 387 U/L (14-36); African American GFR (CKD) 39 (>60 ml/min/1.73 sqM); Albumin 3.1 g/dL (3.5-5.0); Albumin/Globulin Ratio 1.3; Alkaline Phosphatase 446 U/L (38-126); Anion Gap 10 mmol/L; Blood Urea Nitrogen 67 mg/dL (7-17); Calcium 8.2 mg/dL (8.4-10.2); Carbon Dioxide 25 mmol/L (22-30); Chloride 112 mmol/L (98-107); Globulin 2.4 g/dL; Glucose 156 mg/dL (74-99); Non-African American GFR(CKD) 34 (>60 ml/min/1.73 sqM); Potassium 4.4 mmol/L (3.5-5.1); Sodium 147 mmol/L (137-145); Total Bilirubin 4.8 mg/dL (0.2-1.3); Total Protein 5.5 g/dL (6.3-8.2)
[2021-04-05 07:09] LABS: Basophils # (A) 0.1 k/uL (0-0.2); Basophils % (A) 0 %; Eosinophils # (A) 0.1 k/uL (0-0.7); Eosinophils % (A) 0 %; HCT 39.4 % (34.0-46.0); Lymphocytes # (A) 0.5 k/uL (1.0-4.8); Lymphocytes % (A) 3 %; MCH 33.1 pg (25.0-35.0); MCHC 33.1 g/dL (31.0-37.0); MCV 99.9 fL (80.0-100.0); Macrocytosis Slight; Mean Platelet Volume 8.1; Monocytes # (A) 0.3 k/uL (0-1.0); Monocytes % (A) 2 %; Neutrophils # (A) 15.6 k/uL (1.3-7.7); Neutrophils % (A) 94 %; Platelet Count 147 k/uL (150-450); RBC 3.94 m/uL (3.80-5.40); RDW 15.4 % (11.5-15.5); WBC 16.6 k/uL (3.8-10.6)
[2021-04-05] MEDS: ESCITALOPRAM 20 MG TAB PO SCH (08:04)
[2021-04-05] MEDS: LACTULOSE 20 GM/30 ML CUP PO SCH (08:04)
[2021-04-05] MEDS: METOPROLOL TARTRATE 12.5 MG TAB PO SCH (08:04)
[2021-04-05] MEDS: SENNOSIDES 8.6 MG TAB PO SCH (08:05)
[2021-04-05] MEDS: SALT AND SODA MOUTHWASH 1,000 ML PO SCH (08:05)
[2021-04-05] MEDS: NYSTATIN 100,000 UNIT/ML SUSP 500,000 UNIT/5 ML CUP PO SCH (08:05)
[2021-04-05] MEDS: CEFEPIME 2 GM in SODIUM CHLORIDE 0.9% 100 ML IVPB SCH (08:23)
[2021-04-05] MEDS: PANTOPRAZOLE 40 MG/10 ML VIAL IVP SCH (08:23)
[2021-04-05] MEDS: ENOXAPARIN 40 MG/0.4 ML SYRINGE SQ SCH (08:23)
[2021-04-05] MEDS ORDERED: ACETAMINOPHEN IV (For NPO) 1,000 MG in EMPTY BAG 1 BAG IVPB ONE (09:25)
--- NOTE | 2021-04-05 09:38 | P.PN ---
Subjective Progress Note Date: 04/05/21 The patient is quite obtunded and lethargic. She is nonverbal and does not open her eyes, even to sternal rub. She moans occasionally. There is audible upper airway congestion. She had a fever of 100.4. No obvious chills. No obvious bleeding Objective - Vital Signs Vital signs: Vital Signs Temp 100.4 F H 04/05/21 04:52 Pulse 148 H 04/05/21 04:52 Resp 12 04/05/21 08:37 BP 131/84 04/05/21 04:52 Pulse Ox 92 L 04/05/21 04:52 Intake & Output 04/04/21 04/05/21 04/05/21 18:59 06:59 18:59 Intake Total 100 Output Total 920 300 Balance -920 -200 Intake: Intake, IV Titration 100 Amount Cefepime 2 gm In Sodium 100 Chloride 0.9% 100 ml @ 25 mls/hr IVPB Q8HR ON LICENSE OF [facility] Rx# :[id number] Output: Urine 920 300 Other: Voiding Method Indwelling Catheter Indwelling Catheter Indwelling Catheter - Constitutional General appearance: Present: mild distress - Respiratory Details: Audible upper airway congestion Respiratory: bilateral: diminished - Cardiovascular Details: Tachycardic Rhythm: regular - Gastrointestinal General gastrointestinal: Present: normal bowel sounds, soft - Integumentary Integumentary: Present: jaundiced - Musculoskeletal Musculoskeletal: Present: generalized weakness - Psychiatric Psychiatric Comment(s): Mental status as noted above - Labs CBC & Chem 7: 04/05/21 06:31 04/05/21 06:31 Labs: Abnormal Lab Results - Last 24 Hours (Table) 04/05/21 04/05/21 Range/Units 06:31 06:31 WBC 16.6 H (3.8-10.6) k/uL Plt Count 147 L (150-450) k/uL Neutrophils # 15.6 H (1.3-7.7) k/uL Lymphocytes # 0.5 L (1.0-4.8) k/uL Sodium 147 H (137-145) mmol/L Chloride 112 H (98-107) mmol/L BUN 67 H (7-17) mg/dL Creatinine 1.69 H (0.52-1.04) mg/dL Glucose 156 H (74-99) mg/dL Calcium 8.2 L (8.4-10.2) mg/dL Total Bilirubin 4.8 H (0.2-1.3) mg/dL AST 387 H (14-36) U/L ALT 180 H (4-34) U/L Alkaline Phosphatase 446 H (38-126) U/L Total Protein 5.5 L (6.3-8.2) g/dL Albumin 3.1 L (3.5-5.0) g/dL Assessment and Plan (1) Small cell lung cancer Narrative/Plan: The patient was diagnosed with the same this admission. The stage IV disease with heavy involvement in the liver. The patient was started on chemotherapy in the hospital due to increasing symptoms. However after day 1 of cycle 1, there is marked deterioration in her condition as noted in previous physician notes. At this time the patient is lethargic and obtunded, with tachycardia, worsening of renal function, need for supplemental oxygen, and upper airway congestion. - At this time the patient is not felt to be stable enough to have more chemotherapy. - The marked deterioration in her condition could be multifactorial, related to SIRS from rapid progression of the cancer versus chemo effect given very heavy burden of disease. Underlying infection is also possibility. - The patient is covered with steroids, and broad-spectrum antibiotic. Increase hydration. Check tumor lysis labs. Continue antibiotics. Continue aggressive supportive care with oxygen and lactulose for hyperammonemia. - Given extensive small cell cancer with aggressive presentation, and her current condition, no "status is felt to be very appropriate. If the patient continues to decline despite above care then comfort care should be considered Current Visit: Yes Status: Acute Priority: High Code(s): C34.90 - MAL IGNANT NEOPLASM OF UNSP PART OF UNSP BRONCHUS OR LUNG SNOMED Code(s): 254 130311 (2) SVC (superior vena cava obstruction) Narrative/Plan: The patient has received partial radiation and continues on steroids. She is also had 1 dose of chemotherapy. By exam SVC related findings do not appear to be were spent Current Visit: Yes Status: Acute Priority: High Code(s): I87.1 - COMPRESSION OF VEIN SNOMED Code(s): 162534457 Plan: Fever patient is unable to swallow. Therefore rectal Tylenol was ordered. We'll also give 1 dose of IV Tylenol. Hypeammonemia - the patient will be continued on rectal lactulose twice a day. Continue to monitor ammonia level Overall prognosis is felt to be very guarded
[2021-04-05 10:11] LABS: Phosphorus 8.6 mg/dL (2.5-4.5)
[2021-04-05 10:25] LABS: Uric Acid 17.8 mg/dL (3.7-7.4)
[2021-04-05] MEDS ORDERED: LACTULOSE 200 GM/300 ML (FROM 1/2 GAL JUG) RECTAL SCH (11:00)
[2021-04-05] MEDS ORDERED: RASBURICASE 6 MG in SODIUM CHLORIDE 0.9% 46 ML IV ONE (11:00)
--- NOTE | 2021-04-05 11:23 | P.PN ---
Subjective Progress Note Date: 04/05/21 Metastatic carcinoma suspect lung primary with mediastinal lymphadenopathy, rig ht hilar mass, SVC syndrome On 03/31/2001 patient seen in follow-up on medical surgical floor. She is up in the chair today, she is weak, but appears to be in no acute distress, she is evidence of oxygen her pulse ox is 91-93%, she had isolated low-grade fevers overnight, she slightly tachycardic with a rate of 112 BPM, she denies any acute respiratory distress, lung sounds are diminished, with some limited crackles at the right base. No hemoptysis, no complaints of chest pain. Still awaiting results of the Lung biopsies. Radiation oncology he has been consulted, medical oncology is following. Vital signs have been stable. Preliminary lung biopsy results consisting of carcinoma. Radiation oncology is planning on palliative external beam radiation therapy mediastinum and right lung for SVC syndrome. On 04 01 2021 patient seen in follow-up on medical surgical floor, patient is st at[facility] post bronchoscopy with biopsies of the right upper lobe and kill tumor, needle aspirate biopsy of the right upper lobe and needle aspirate of the anterior mediastinal mass. Pathology results are still pending at this time. She denies any specific complaints, she is sitting up in the chair, appears to be in no acute distress, she states her breathing is comfortable, she is on 5 L of oxygen with pulse ox of 95%, she's been afebrile, hemodynamically she is been stable, no complaints of hemoptysis, no compressive chest discomfort, she still has generalized edema involving her upper and lower extremities and some truncal edema, overall not worsening. Patient was seen in consultation by radiation oncology, was plan on starting palliative radiation to the mediastinum and right lung for SVC syndrome. Acute events overnight, today's labs are pending, On 04/02/2010 were patient seen in follow-up on medical surgical floor. She has just returned from getting her MRI of the liver done. She is quite weak, she is unable to transfer herself over from the stretcher to the bed. She is requiring extensive assistance. She still requiring 4 L of oxygen pulse ox is 95%, denies worsening dyspnea other than with exertion. No cough, no wheezing, room air pulse ox was 83%, patient will need home oxygen to go home on, patient has been afebrile, vital signs have been stable. No acute events overnight. She remains generally swollen, weak. Today's labs have been reviewed, her sodium is 137, potassium is 3.6, chloride is 104, BUN is 38, creatinine 0.79. We discussed case with medical oncology, and radiation will be started first, and chemotherapy will be started in 1-2 weeks after discharge home. Patient is supposed to go home today, follow-up with medical oncology. The patient is seen today 04/03/2021 in follow-up on the regular medical floor. She is awake and alert in no acute distress. She is currently maintaining O2 saturations in the 90s on 4 L/m per nasal cannula. Afebrile. Slightly tachycardic. MRI of the liver revealed evidence of metastatic disease. Numerous of hepatic lesions to count throughout the liver. Bone scan revealed no evidence of osseous lesion or metastatic disease. She is receiving palliative radiation for SVC syndrome. The plan is to start chemotherapy. Oncology is on the case. The patient is seen today 04/04/2021 in follow-up on the oncology unit. She is currently resting in bed. An A team was called on her approximately 4:00 this morning for worsening mental status and agitation. [place] to be secondary to hepatic encephalopathy and toxic metabolic encephalopathy. Ammonia level 68. ABG revealed a pO2 of 84, pCO2 52 and a pH is 7.34 on 80% FiO2. She is requiring 12 L high flow nasal cannula to maintain O2 saturation in the 90s. She is tachycardic. X-ray reveals increasing airspace infiltrates and pleural thickening. Consistent with worsening ARDS. Heart failure not totally excluded. White count 22. Hemoglobin 13.4. Platelets 150. Sodium 143. Potassium 4.2. Creatinine 0.81. She remains on Decadron, Lovenox, antibiotics in the form of cefepime. She is receiving etoposide and carboplatin. On today's evaluation on today's evaluation of a 2020, the patient is doing very poor. She is extremely lethargic and obtunded. Unable to communicate. She is nonverbal. She is not opening of her eyes. She will occasionally moans. She is tachycardic. She is febrile. Her breathing is somewhat labored. White cell count at 16.6. TMs of 7 with a creatinine of 1.69. LFTs remain abnormal with AST of 57, ALT of 180 and alkaline phosphatase of 146. Her platelet count is at 147. She has increased swelling in the upper extremities. She was started on systemic chemotherapy regarding her metastatic small cell lung cancer. She showed significant deterioration in her condition and she is also requiring supplemental oxygen. She does have some chest congestion. Her cough is weak. Prognosis extremely poor. She is a DNR/DNI CODE STATUS. Her ammonia is 117. She is in sinus tachycardia. Objective - Vital Signs Vital signs: Vital Signs Temp 100.4 F H 04/05/21 04:52 Pulse 148 H 04/05/21 04:52 Resp 12 04/05/21 08:37 BP 131/84 04/05/21 04:52 Pulse Ox 92 L 04/05/21 04:52 Intake & Output 04/04/21 04/05/21 04/05/21 18:59 06:59 18:59 Intake Total 100 Output Total 920 300 Balance -920 -200 Intake: Intake, IV Titration 100 Amount Cefepime 2 gm In Sodium 100 Chloride 0.9% 100 ml @ 25 mls/hr IVPB Q8HR [facility] Rx# :[id number] Output: Urine 920 300 Other: Voiding Method Indwelling Catheter Indwelling Catheter Indwelling Catheter - Exam Gen. appearance, onset, lethargic, obtunded, on 12 L of oxygen high flow Head exam was generally normal. There was no scleral icterus or corneal arcus. Mucous membranes were moist. Neck was supple and with jugular venous distension, thyromegaly, or carotid bruits. Carotids were easily palpable bilaterally. There was no adenopathy. Lungs sounds are diminished otherwise clear. No rhonchi or any wheezes. Cardiac exam revealed the PMI to be normally situated and sized. The rhythm was regular and no extrasystoles were noted during several minutes of auscultation. The first and second heart sounds were normal and physiologic splitting of the second heart sound was noted. There were no murmurs, rubs, clicks, or gallops. Abdomen examination shows a massive hepatomegaly of the patient's liver edge is seen way below the costal margin. No ascites. No direct tenderness rebound tenderness or guarding. Positive bowel sounds. Extremities reveal trace edema in the upper extremities bilaterally, no edema lower extremities. No cyanosis or clubbing. Neurologically, the patient is obtunded, lethargic Examination of the skin revealed no evidence of significant rashes, suspicious appearing nevi or other concerning lesion - Labs CBC & Chem 7: 04/05/21 06:31 04/05/21 06:31 Labs: Abnormal Lab Results - Last 24 Hours (Table) 04/05/21 04/05/21 04/05/21 Range/Units 06:31 06:31 06:31 WBC 16.6 H (3.8-10.6) k/uL Plt Count 147 L (150-450) k/uL Neutrophils # 15.6 H (1.3-7.7) k/uL Lymphocytes # 0.5 L (1.0-4.8) k/uL Sodium 147 H (137-145) mmol/L Chloride 112 H (98-107) mmol/L BUN 67 H (7-17) mg/dL Creatinine 1.69 H (0.52-1.04) mg/dL Glucose 156 H (74-99) mg/dL Uric Acid (3.7-7.4) mg/dL Calcium 8.2 L (8.4-10.2) mg/dL Phosphorus (2.5-4.5) mg/dL Total Bilirubin 4.8 H (0.2-1.3) mg/dL AST 387 H (14-36) U/L ALT 180 H (4-34) U/L Alkaline Phosphatase 446 H (38-126) U/L Ammonia 117 H (<30) umol/L Total Protein 5.5 L (6.3-8.2) g/dL Albumin 3.1 L (3.5-5.0) g/dL 04/05/21 Range/Units 06:31 WBC (3.8-10.6) k/uL Plt Count (150-450) k/uL Neutrophils # (1.3-7.7) k/uL Lymphocytes # (1.0-4.8) k/uL Sodium (137-145) mmol/L Chloride (98-107) mmol/L BUN (7-17) mg/dL Creatinine (0.52-1.04) mg/dL Glucose (74-99) mg/dL Uric Acid 17.8 H* (3.7-7.4) mg/dL Calcium (8.4-10.2) mg/dL Phosphorus 8.6 H (2.5-4.5) mg/dL Total Bilirubin (0.2-1.3) mg/dL AST (14-36) U/L ALT (4-34) U/L Alkaline Phosphatase (38-126) U/L Ammonia (<30) umol/L Total Protein (6.3-8.2) g/dL Albumin (3.5-5.0) g/dL Assessment and Plan Plan: 1 metastatic small cell carcinoma of the lung. The patient has chronic elevation of mediastinal lymph node/mass causing mass effect and encasing of the hilar structures in addition to possibility of an early SVC syndrome. The patient also has heterogeneous liver with hepatomegaly and abnormal LFTs consis tent with hepatic metastases. Patient is status post bronchoscopy with biopsies on 03/30/2021, positive for small cell lung cancer. She has been initiated with [employer] and carboplatin. Early this morning the patient became quite altered and agitated with noted hypoxemia and worsening chest x-ray. Currently on 12 L high flow nasal cannula. Her condition is further deteriorated. She has significant diminished on her mental status, she is obtunded and lethargic. LFTs are normal. Ammonia level is high. She is in sinus tachycardia. She is hypoxic. Family is opted for hospice care. 2 massive hepatomegaly with abnormal LFTs with an obstructive pattern and elevation of the alkaline phosphatase, positive for metastasis. 3 acute hypoxic respiratory failure, currently on 12L by nasal cannula. 4 ascites and supplement interstitial edema 5 history of alcohol consumption in moderation according to her although the patient seems to be taken around 6 beers every 2-3 days or 3 times a week 6 smoker 7 extremely exhaustion and fatigue 8 leukocytosis 9 jaundice with an abnormal LFTs with elevated AST and AST and obstructive hepatic pattern. 10 sinus tachycardia, probably related to her underlying malignancy. 11 possible early SVC syndrome, patient is going to start palliative external beam radiation Mignon: Commands conference care measures. If family is agreeable, we'll stop active treatment and will provide her some morphine for now for end-of-life care on comfort care measures. Currently on 12 L high flow nasal cannula Titrate the FiO2 as tolerated Overall prognosis remains quite guarded She is a DO NOT RESUSCITATE/DO NOT INTUBATE CODE STATUS
--- NOTE | 2021-04-05 11:34 | P.PN ---
Subjective This is a 55 years old female with diagnosis of small bowel lung cancer, metastatic to the liver, associated with mediastinal lymphadenopathy and clearly SVC syndrome. Seen today in the general medical floor, she is encephalopathic with high ammoni a level. She is doing poor, she is obtunded and does not follow command, does not wake up to verbal or tactile stimuli Yesterday they have to call a team for her for hypoxia and received 1 dose of [place] six, her blood pressure is low normal and she is tachycardic with a heart rate around 135 Is currently on 12 L oxygen via nasal cannula Ammonia level is elevated at 68, she received lactulose rectally, liver enzymes also mildly elevated. She is also septic with leukocytosis with running 2 okay. Calcitonin is elevated at 3.4. The test is negative She is on gentle hydration with normal saline at 50 mL per hour, her Zosyn was stopped today since admission and switched to cefepime. Also on a Protonix 40 mg IV twice daily Several consultants on the case including pulmonary and hematology/oncology team. She got one round of chemotherapy but she did not do well afterwards and her clinical condition deteriorated Her prognosis is extremely poor. The patient is no code. Family at bedside 04/05/2021 Patient is obtunded, not responsive to verbal or tactile Stimuli. Her vitals are stable and she is tachycardic and septic and encephalopathic This she has end stage small cell lung cancer with metastatic disease to the liver Prognosis is extremely poor and she was made no code yesterday After family talked to Mary yesterday and Dr. Almeida today they decided to proceed with comfort care and hospice consult which looks appropriate Objective - Vital Signs Vital signs: Vital Signs Temp 100.4 F H 04/05/21 04:52 Pulse 148 H 04/05/21 04:52 Resp 12 04/05/21 08:37 BP 131/84 04/05/21 04:52 Pulse Ox 92 L 04/05/21 04:52 Intake & Output 04/04/21 04/05/21 04/05/21 18:59 06:59 18:59 Intake Total 100 Output Total 920 300 Balance -920 -200 Intake: Intake, IV Titration 100 Amount Cefepime 2 gm In Sodium 100 Chloride 0.9% 100 ml @ 25 mls/hr IVPB Q8HR [facility] Rx# :[id number] Output: Urine 920 300 Other: Voiding Method Indwelling Catheter Indwelling Catheter Indwelling Catheter - Exam -GENERAL: The patient is obtunded, unresponsive HEENT: Pupils are round and equally reacting to light. EOMI. No scleral icterus. No conjunctival pallor. Normocephalic, atraumatic. No pharyngeal erythema. No thyromegaly. CARDIOVASCULAR: S1 and S2 present. No murmurs, rubs, or gallops. -PULMONARY: Chest is decreased air entry, shallow breathing. Some crepitation especially on the right side ABDOMEN: Soft, nontender, nondistended, normoactive bowel sounds. No palpable organomegaly. MUSCULOSKELETAL: No joint swelling or deformity. EXTREMITIES: No cyanosis, clubbing, or pedal edema. NEUROLOGICAL: Gross neurological examination did not reveal any focal deficits. SKIN: No rashes. no petechiae. - Labs CBC & Chem 7: 04/05/21 06:31 04/05/21 06:31 Labs: Abnormal Lab Results - Last 24 Hours (Table) 04/05/21 04/05/21 04/05/21 Range/Units 06:31 06:31 06:31 WBC 16.6 H (3.8-10.6) k/uL Plt Count 147 L (150-450) k/uL Neutrophils # 15.6 H (1.3-7.7) k/uL Lymphocytes # 0.5 L (1.0-4.8) k/uL Sodium 147 H (137-145) mmol/L Chloride 112 H (98-107) mmol/L BUN 67 H (7-17) mg/dL Creatinine 1.69 H (0.52-1.04) mg/dL Glucose 156 H (74-99) mg/dL Uric Acid (3.7-7.4) mg/dL Calcium 8.2 L (8.4-10.2) mg/dL Phosphorus (2.5-4.5) mg/dL Total Bilirubin 4.8 H (0.2-1.3) mg/dL AST 387 H (14-36) U/L ALT 180 H (4-34) U/L Alkaline Phosphatase 446 H (38-126) U/L Ammonia 117 H (<30) umol/L Total Protein 5.5 L (6.3-8.2) g/dL Albumin 3.1 L (3.5-5.0) g/dL 04/05/21 Range/Units 06:31 WBC (3.8-10.6) k/uL Plt Count (150-450) k/uL Neutrophils # (1.3-7.7) k/uL Lymphocytes # (1.0-4.8) k/uL Sodium (137-145) mmol/L Chloride (98-107) mmol/L BUN (7-17) mg/dL Creatinine (0.52-1.04) mg/dL Glucose (74-99) mg/dL Uric Acid 17.8 H* (3.7-7.4) mg/dL Calcium (8.4-10.2) mg/dL Phosphorus 8.6 H (2.5-4.5) mg/dL Total Bilirubin (0.2-1.3) mg/dL AST (14-36) U/L ALT (4-34) U/L Alkaline Phosphatase (38-126) U/L Ammonia (<30) umol/L Total Protein (6.3-8.2) g/dL Albumin (3.5-5.0) g/dL Assessment and Plan Assessment: Metastatic small cell cancer Liver metastasis with elevated ammonia level Acute severe hypoxia Double encephalopathy and hepatic encephalopathy Pulmonary congestion Sepsis possibly secondary to pneumonia with gram-negative bacteria No code Plan: This is a pleasant 55 years old female with lung cancer and metastasis to the liver Continue with oxygen as needed. Consult hospice care Comfort care measures No code Prognosis is guarded and extremely poor
[2021-04-05] MEDS: SODIUM CHLORIDE 0.9% 1,000 ML IV SCH (12:00)
[2021-04-05] MEDS ORDERED: MORPHINE SULFATE (100 MG/2 ML) 100 MG in SODIUM CHLORIDE 0.9% 100 ML IV SCH (12:15)
[2021-04-05 12:26] VITALS: PULSE 140; RESP 11
[2021-04-05] MEDS: ATROPINE OPHTH SOLN 1% 5ML BTL SUBLINGUAL SCH ×2 (16:35)
--- NOTE | 2021-04-08 11:51 | CDI ---
Documentation Clarification Form Date: 04/08/2021 11:47:28 AM From: Génesis Cannon RN, CCDS Admit Date: 03/26/2021 09:26:00 PM Patient Name: Sharon Power Visit Number: [id number] Discharge Date: 04/05/2021 09:10:00 PM ATTENTION: The Clinical Documentation Specialists (CDI) and [facility] Coding Staff appreciate your assistance in clarifying documentation. Please respond to the clarification below the line at the bottom and electronically sign. The CDI & [facility] Coding staff will review the response and follow-up if needed. Please note: Queries are made part of the Legal Health Record. If you have any questions, please contact the author of this message via ITS. Dr. Franklin Carey The patient presented with Pneumonia on 03/26 and Sepsis documented on 04/04. Additional clarification regarding the etiology/cause of the clinical indicators is requested. History/Risk Factors: New diagnosis of small cell lung CA with mets to liver this admission, ETOH, Nicotine dependence, COPD Clinical Indicators: Infection POA: Pneumonia per EC Notes 03/26-04/05 WBC: 22.1/19.2/19.08/19.99/20.4/22.1/16.6 03/26 Lactic acid: 1.5 Blood cultures: not done 04/04 & 04/05 Attending Progress Note: "Sepsis possibly secondary to pneumonia with gram-negative bacteria No code." 03/26 1647 Admission Vital signs: Temp 98.4, HR 125, RR 18, B/P 135/80,Spo2 97% RA End organ Damage: 03/27 H&P: "Acute hypoxic Respiratory Failure" Treatment: ID Consult: NO ID Consult ordered Antibiotics: 03/26 -03/30 Zithromax 500 mg IVPB QD 03/26-04/04 Zosyn 3.375gm IVPB Q 8 hrs. 04/04-04/05 IV Cefepime 2gm Q 8 hrs. 03/26 2L 0.9% NS IVF Bolus In your professional opinion, please clarify if these findings signify one of the following conditions: [ ] Sepsis POA [ ] Sepsis, Not POA [ ] Other, please specify [ ] Unable to determine SIRS Criteria: 2 or more of the following may indicate SIRS -Temperature < 96.8F (36C) or > 101.0F (38.3C) -Heart Rate > 90 bpm -Respiratory Rate > 20 breaths/min or PaCO2 < 32 mmHg -White Blood Cell Count > 12,000 or < 4,000 cells/mm3 or > 10% bands (Template Last Reviewed: September 2020) Sepsis POA MTDD
== END 2021-04-05 21:10 | disposition expired | DRG 166 ==
LOC: EC 16:27 → 4SSUR 21:26 → 5NMEDONC 04-03 15:51
PROVIDERS: ADMIT Family Medicine; ATTEND Family Medicine
PROC: 0BBC8ZX Excision of Right Upper Lung Lobe, Via Natural or Artificial Opening Endoscopic, Diagnostic (ICD-10-PCS; 2021-03-30)
PROC: 0B9C8ZX Drainage of Right Upper Lung Lobe, Via Natural or Artificial Opening Endoscopic, Diagnostic (ICD-10-PCS; principal; 2021-03-30 08:40)
PROC: 0BD48ZX Extraction of Right Upper Lobe Bronchus, Via Natural or Artificial Opening Endoscopic, Diagnostic (ICD-10-PCS; 2021-03-30 08:40)
PROC: 0WBC4ZX Excision of Mediastinum, Percutaneous Endoscopic Approach, Diagnostic (ICD-10-PCS; 2021-03-30 08:40)
PROC: 5A0945A Assistance with Respiratory Ventilation, 24-96 Consecutive Hours, High Flow/Velocity Cannula (ICD-10-PCS; 2021-04-03)
PROC: 3E03305 Introduction of Other Antineoplastic into Peripheral Vein, Percutaneous Approach (ICD-10-PCS; 2021-04-03)
PROC: 02HV33Z Insertion of Infusion Device into Superior Vena Cava, Percutaneous Approach (ICD-10-PCS; 2021-04-03)
DX: C34.11 Malignant neoplasm of upper lobe, right bronchus or lung (principal); J15.6 Pneumonia due to other Gram-negative bacteria; G92 Toxic encephalopathy; A41.50 Gram-negative sepsis, unspecified; J80 Acute respiratory distress syndrome; E87.1 Hypo-osmolality and hyponatremia; I87.1 Compression of vein; J44.0 Chronic obstructive pulmonary disease with (acute) lower respiratory infection; C78.7 Secondary malignant neoplasm of liver and intrahepatic bile duct; R18.8 Other ascites; E44.1 Mild protein-calorie malnutrition; J90 Pleural effusion, not elsewhere classified; C77.1 Secondary and unspecified malignant neoplasm of intrathoracic lymph nodes; E86.0 Dehydration; Z51.5 Encounter for palliative care; Z66 Do not resuscitate; R16.0 Hepatomegaly, not elsewhere classified; F17.210 Nicotine dependence, cigarettes, uncomplicated; Z20.822 Contact with and (suspected) exposure to COVID-19; Z82.49 Family history of ischemic heart disease and other diseases of the circulatory system; K72.90 Hepatic failure, unspecified without coma; F10.10 Alcohol abuse, uncomplicated; N63.10 Unspecified lump in the right breast, unspecified quadrant; Z98.51 Tubal ligation status
CPT/HCPCS: 31624; 31625; 31633; 36415; 36573; 36600; 70553; 71045; 71046; 71260; 74177; 74181; 77280; 77290; 77307; 77332; 77334; 77336; 77387; 77412; 78306; 80048; 80053; 80074; 81001; 82105; 82140; 82150; 82805; 83605; 83615; 83690; 83735; 84100; 84132; 84145; 84484; 84550; 85025; 85610; 85730; 87635; 88108; 88173; 88305; 88341; 88342; 93005; 93306; 93970; 94760; 96361; 96374; 99285